=== PATIENT | female | born 1945 | race Caucasian/White ===

== ENCOUNTER 2017-09-27 11:31 | Inpatient (IN) ==
--- NOTE | 2017-09-27 11:36 | Emergency Department Note ---
Disposition Clinical Impression: CAP (community acquired pneumonia), COPD with exacerbation, Hypercapnia, Hypoxia, Sepsis Disposition: Admitted As Inpatient Condition: Fair General Adult HPI - General Chief complaint: ED Shortness of Breath/Dyspnea Stated complaint: Shortness of Breath Time Seen by Provider: 09/27/17 11:34 - Related Data Home Medications Medication Instructions Recorded Confirmed Atorvastatin [Lipitor] 20 mg PO HS 02/15/15 09/27/17 Chlorthalidone 25 mg PO DAILY 02/15/15 09/27/17 Cyclobenzaprine [Flexeril] 10 mg PO DAILY 02/15/15 09/27/17 Losartan [Cozaar] 25 mg PO DAILY 02/15/15 09/27/17 Multivitamin [Multi-Day Vitamins] 1 each PO DAILY 02/15/15 09/27/17 NIFEdipine [Nifedical Xl] 60 mg PO DAILY 02/15/15 09/27/17 Potassium Chloride 20 meq PO TID 02/15/15 09/27/17 Roflumilast [Daliresp] 500 mcg PO DAILY 02/15/15 09/27/17 Ropinirole HCl [Requip] 4 mg PO HS 02/15/15 09/27/17 TraZODone 100 mg PO HS 02/15/15 09/27/17 Aspirin Enteric Coated [Aspirin EC] 81 mg PO DAILY 02/08/16 09/27/17 Fluticasone/Salmeterol [Advair 1 each IH AD PRN 09/19/16 09/27/17 250-50 Diskus] Previous Rx's Medication Instructions Recorded OxyCODONE/APAP 10/325 [Percocet 1 each PO Q6HR PRN #39 tablet 03/13/15 10/325] Vitamin E (Dl,Tocopheryl Acet) 400 unit PO BID #100 cap 08/20/15 [Vitamin E] Calcium Carbonate/Vitamin D3 1 each PO BID #180 tablet 08/24/15 [Calcium 600 + Vit D Tablet] Magnesium Oxide [Mgo] 1 tab PO DAILY #30 tablet 03/21/16 Letrozole [Femara] 2.5 mg PO DAILY #90 tablet 03/19/17 Allergies Allergy/AdvReac Type Severity Reaction Status Date / Time levofloxacin [From Levaquin] AdvReac Itching Verified 09/27/17 12:05 Sulfa (Sulfonamide AdvReac Nausea Verified 09/27/17 12:05 Antibiotics) Past Medical History - Past Medical History Medical history: Reports: other Surgical history: Reports: appendectomy, cataract, hip replacement, hysterectomy Psychiatric history: Reports: no psych history - Social History Smoking Status: Former smoker Smokeless Tobacco Status: No Alcohol use: Reports: none Drug use: Reports: none Course Vital Signs Temperature 98.4 F 09/27/17 11:33 Pulse Rate 100 09/27/17 11:33 Respiratory Rate 24 09/27/17 11:33 Blood Pressure 120/75 09/27/17 11:33 O2 Sat by Pulse Oximetry 92 09/27/17 11:33 Temperature 97.8 F 09/27/17 15:36 Pulse Rate 67 09/27/17 15:36 Respiratory Rate 15 09/27/17 15:36 Blood Pressure 93/53 09/27/17 15:36 O2 Sat by Pulse Oximetry 95 09/27/17 15:36 Oxygen Delivery Oxygen Delivery Nasal Cannula Medical Decision Making - Lab Data Result diagrams: 09/27/17 11:59 09/27/17 11:59 Lab Results 09/27/17 09/27/17 09/27/17 Range/Units 11:59 11:59 11:59 WBC 18.6 H (4.3-11.1) K/mcL RBC 4.35 (3.82-4.97) M/mcL Hgb 13.3 (11.5-15.4) g/dL Hct 40.9 (35.3-44.9) % MCV 94.0 (83.0-100.0) fL MCH 30.6 (28.0-33.3) pg MCHC 32.5 (31.6-35.5) g/dL RDW 14.4 (11.5-14.5) % Plt Count 383 (140-400) K/mcL MPV 8.9 L (9.4-12.4) fL Immature Gran % 0.4 (0-4) % Seg Neutrophils % 92.9 % Lymphocytes % 2.8 % Monocytes % 3.6 % Eosinophils % 0.1 % Basophils % 0.2 % Neutrophils # 17.3 H (1.6-8.9) K/mcL Lymphocytes # 0.5 L (0.6-4.6) K/mcL Monocytes # 0.7 (0.0-1.3) K/mcL Eosinophils # 0.0 (0.0-0.6) K/mcL Basophils # 0.0 (0.0-0.2) K/mcL VBG pH (7.32-7.42) pH Units VBG pCO2 (41-51) mmHg VBG pO2 (25-50) mmHg VBG HCO3 (21-27) mEq/L Sodium 130 L (136-145) mEq/L Potassium 3.7 (3.5-5.1) mEq/L Chloride 94 L (98-107) mEq/L Carbon Dioxide 28 (23-29) mEq/L BUN 16 (8-23) mg/dL Creatinine 1.17 (0.60-1.20) mg/dL Est GFR ( Amer) 55 L (> 60) Est GFR (Non-Af Amer) 46 L (> 60) BUN/Creatinine Ratio 14 (6-26) Glucose 122 H (70-105) mg/dL Calculated Osmolality 272 L (280-300) Lactic Acid (0.5-2.2) mmol/L Calcium 8.7 (8.6-10.3) mg/dL Troponin I < 0.03 (< 0.04) ng/mL Blood Type O POSITIVE Antibody Screen NEGATIVE 09/27/17 09/27/17 Range/Units 12:13 12:41 WBC (4.3-11.1) K/mcL RBC (3.82-4.97) M/mcL Hgb (11.5-15.4) g/dL Hct (35.3-44.9) % MCV (83.0-100.0) fL MCH (28.0-33.3) pg MCHC (31.6-35.5) g/dL RDW (11.5-14.5) % Plt Count (140-400) K/mcL MPV (9.4-12.4) fL Immature Gran % (0-4) % Seg Neutrophils % % Lymphocytes % % Monocytes % % Eosinophils % % Basophils % % Neutrophils # (1.6-8.9) K/mcL Lymphocytes # (0.6-4.6) K/mcL Monocytes # (0.0-1.3) K/mcL Eosinophils # (0.0-0.6) K/mcL Basophils # (0.0-0.2) K/mcL VBG pH 7.32 (7.32-7.42) pH Units VBG pCO2 54 H (41-51) mmHg VBG pO2 40 (25-50) mmHg VBG HCO3 28 H (21-27) mEq/L Sodium (136-145) mEq/L Potassium (3.5-5.1) mEq/L Chloride (98-107) mEq/L Carbon Dioxide (23-29) mEq/L BUN (8-23) mg/dL Creatinine (0.60-1.20) mg/dL Est GFR ( Amer) (> 60) Est GFR (Non-Af Amer) (> 60) BUN/Creatinine Ratio (6-26) Glucose (70-105) mg/dL Calculated Osmolality (280-300) Lactic Acid 3.0 H (0.5-2.2) mmol/L Calcium (8.6-10.3) mg/dL Troponin I (< 0.04) ng/mL Blood Type Antibody Screen Critical Care Time Critical Care Time: Yes Total Critical Care Time: 30 Attestation: The high probability of a clinically significant, sudden or life threatening deterioration of the [] system(s) required my full and direct attention, intervention and personal management. The aggregate critical care time was [] minutes. This time is in addition to time spent performing reported procedures but includes the following: [] Data Review and interpretation [] Patient assessment and monitoring of vital signs [] Documentation [] Medication orders and management Attestation Statement - Attestation Attestation: I examined this patient and my medical decision-making was reviewed with the Resident Physician. I agree with the documented findings, disposition and treatment plan as described except to the extent set forth below. [id number] time provided Patient arrives from home by EMS. She complains of dyspnea. She has a history of non-oxygen dependent COPD. Visibly tachypneic on exam. Prehospital pulse oximetry was reported to be 78% on room air
[2017-09-27] MEDS ORDERED: Albuterol 2.5 MG/3 ML NEBULIZER IH ONE (11:38)
[2017-09-27] MEDS ORDERED: Ipratropium/Albuterol Neb 3 ML ONE (11:40)
--- NOTE | 2017-09-27 11:44 | Emergency Department Note ---
Disposition Clinical Impression: COPD with exacerbation, Hypercapnia, Hypoxia CAP (community acquired pneumonia) Qualifiers: Laterality: right Lung location: lower lobe of lung Qualified Code(s): J18.1 - Lobar pneumonia, unspecified organism Sepsis Qualifiers: Sepsis type: sepsis due to unspecified organism Qualified Code(s): A41.9 - Sepsis, unspecified organism Disposition: Admitted As Inpatient Condition: Fair Forms: ED Satisfaction Letter Time of Disposition: 12:52 SOB HPI - General Chief Complaint: ED Shortness of Breath/Dyspnea Stated Complaint: Shortness of Breath Time Seen by Provider: 09/27/17 11:34 Source: EMS Limitations: no limitations Nursing Notes Reviewed: Yes Vital Signs Reviewed: Yes - History of Present Illness 72-year-old female complains of difficulty in breathing 9 hours ago. Patient states that her symptoms came on suddenly and got progressively worse. Patient states difficult for her to lay flat. Patient denies any chest pain, or chest tightness. She states that she just cannot get a breath in. She has a history of COPD without any prior history of requiring intubation and has not had in-hospital stay in 5 years. Patient states right before she went to bed last night she had chills and heavy tremors, but no fever. Patient's son at bedside states that she was incontinent in the bed last night and those blood in her stool. EMS states that patient had an O2 saturation of 74% and they placed her on 15 L/ m oxygen via nonrebreather and was only able to increase her O2 saturation to proximally 84%. Patient does not use oxygen supplementation at home. - Related Data Home Medications Medication Instructions Recorded Confirmed Atorvastatin [Lipitor] 20 mg PO HS 02/15/15 09/11/17 Chlorthalidone 25 mg PO DAILY 02/15/15 09/11/17 Cyclobenzaprine [Flexeril] 10 mg PO DAILY 02/15/15 09/11/17 Losartan [Cozaar] 25 mg PO DAILY 02/15/15 09/11/17 Multivitamin [Multi-Day Vitamins] 1 each PO DAILY 02/15/15 09/11/17 NIFEdipine [Nifedical Xl] 60 mg PO DAILY 02/15/15 09/11/17 Potassium Chloride 20 meq PO TID 02/15/15 09/11/17 Roflumilast [Daliresp] 500 mcg PO DAILY 02/15/15 09/11/17 Ropinirole HCl [Requip] 4 mg PO HS 02/15/15 09/11/17 TraZODone 2 tab PO HS 02/15/15 09/11/17 Aspirin Enteric Coated [Aspirin EC] 81 mg PO DAILY 02/08/16 09/11/17 Fluticasone/Salmeterol [Advair 1 each IH AD PRN 09/19/16 09/11/17 250-50 Diskus] Previous Rx's Medication Instructions Recorded OxyCODONE/APAP 10325 [Percocet 1 each PO Q6HR PRN #39 tablet 03/13/15 10325] Vitamin E (Dl,Tocopheryl Acet) 400 unit PO BID #100 cap 08/20/15 [Vitamin E] Calcium Carbonate/Vitamin D3 1 each PO BID #180 tablet 08/24/15 [Calcium 600 + Vit D Tablet] Magnesium Oxide [Mgo] 1 tab PO DAILY #30 tablet 03/21/16 Letrozole [Femara] 2.5 mg PO DAILY #90 tablet 03/19/17 Allergies Allergy/AdvReac Type Severity Reaction Status Date / Time levofloxacin [From Levaquin] AdvReac Itching Verified 09/27/17 12:05 Sulfa (Sulfonamide AdvReac Nausea Verified 09/27/17 12:05 Antibiotics) All systems ED: reviewed and negative except as stated. Review of Systems: As Per HPI Constitutional: Reports: chills. Denies: fever ENT ED: Denies: congestion Cardiovascular: Denies: chest pain, palpitations Respiratory: Reports: cough, dyspnea. Denies: wheezes, hemoptysis Gastrointestinal: Denies: abdominal pain, nausea, vomiting, diarrhea Genitourinary: Denies: urgency, dysuria Musculoskeletal: Denies: back pain Endocrine: Reports: fatigue Past Medical History - Past Medical History Attestation: Yes The following information was validated with the patient. Source: patient, nursing notes reviewed Medical history: Reports: other Surgical history: Reports: appendectomy, cataract, hip replacement, hysterectomy Psychiatric history: Reports: no psych history - Social History Smoking Status: Former smoker Smokeless Tobacco Status: No Alcohol use: Reports: none Drug use: Reports: none Physical Exam Vital Signs Temperature 98.4 F 09/27/17 11:33 Pulse Rate 100 09/27/17 11:33 Respiratory Rate 24 09/27/17 11:33 Blood Pressure 120/75 09/27/17 11:33 O2 Sat by Pulse Oximetry 09/27/17 11:33 Temperature 98.4 F 09/27/17 11:33 Pulse Rate 100 09/27/17 11:33 Respiratory Rate 24 09/27/17 11:33 Blood Pressure 120/75 09/27/17 11:33 O2 Sat by Pulse Oximetry 09/27/17 11:33 Oxygen Delivery Oxygen Delivery Non Rebreather Mask CONSTITUTIONAL: Unwell-appearing elderly female who is alert and oriented 3 and in moderate distress, but not in extremis. Patient is nontoxic-appearing and currently afebrile. Slight tachycardic at 100 bpm and tachypnea get 24 breaths per minute. O2 sats 92% on 15 L via nonrebreather. HEAD: Normocephalic; atraumatic EYES: PERRL, no scleral icterus NOSE: The nose is normal in appearance without rhinorrhea NECK: No JVD or distended neck veins RESP: Shallow breaths but equal bilateral rise and fall, no rhonchi or wheezing. Bibasilar rales present CARD: Regular rhythm, without murmurs, rub or gallop ABD: Non-distended; non-tender, soft, without rigidity, rebound or guarding,no pulsatile mass CHEST: No pain with palpation SKIN: Normal for age and race; warm and dry without diaphoresis ; no apparent lesions EXTREMITIES: Pulses are 2 plus and equal times 4 extremities, no peripheral edema or calf muscle pain - General Limitations: no limitations General appearance: alert, in distress Course - Reevaluation(s) Reevaluation #1: Chest x-ray shows source of infection or right lower lobe pneumonia. Sepsis protocol was initiated and antibiotics ordered. Time: 12:30 Vital Signs Temperature 98.4 F 09/27/17 11:33 Pulse Rate 100 09/27/17 11:33 Respiratory Rate 24 09/27/17 11:33 Blood Pressure 120/75 09/27/17 11:33 O2 Sat by Pulse Oximetry 09/27/17 11:33 Temperature 98.4 F 09/27/17 11:33 Pulse Rate 100 09/27/17 11:33 Respiratory Rate 24 09/27/17 11:33 Blood Pressure 120/75 09/27/17 11:33 O2 Sat by Pulse Oximetry 09/27/17 11:33 Oxygen Delivery Oxygen Delivery Non Rebreather Mask Shortness of Breath/Dyspnea - [facility] Narrative Medical decision making narrative: COPD exacerbation and possibly GI bleed per report of black stools on last bowel movement. Fecal occult blood tests was performed at bedside and was negative rectal bleeding. Patient met SIRS criteria and sepsis criteria was met we identified a right lower lobe pneumonia with effusion and patient was started on antibiotics of 1 g Rocephin and 500 mg azithromycin IV. Patient was given albuterol and DuoNeb treatment for COPD exacerbation. Lactic acid was 3.0 and patient was given appropriate IV fluid. Patient did not receive 30 mL per kilogram bolus of IV fluid to prevent fluid overload given the patient's frail state and already diminished respiratory capability. Patient is nonischemic EKG and her troponin was negative. Patient remained stable and well nourished her time in the emergency department , she is able to the ED and drink without issue and was admitted to the hospital. Both the family and patient agreed to admission. Dr. Diaz the hospitalist accepted patient for admission and stable condition. - Lab Data Lab results reviewed: Yes I reviewed the patient's lab results. Lab results narrative: Short CBC 09/27/17 Range/Units 11:59 WBC 18.6 H (4.3-11.1) K/mcL Hgb 13.3 (11.5-15.4) g/dL Hct 40.9 (35.3-44.9) % Plt Count 383 (140-400) K/mcL Neutrophils # 17.3 H (1.6-8.9) K/mcL BMP 09/27/17 Range/Units 11:59 Sodium 130 L (136-145) mEq/L Potassium 3.7 (3.5-5.1) mEq/L Chloride 94 L (98-107) mEq/L Carbon Dioxide 28 (23-29) mEq/L BUN 16 (8-23) mg/dL Creatinine 1.17 (0.60-1.20) mg/dL Glucose 122 H (70-105) mg/dL Calcium 8.7 (8.6-10.3) mg/dL Cardiac Enzymes 09/27/17 Range/Units 11:59 Troponin I < 0.03 (< 0.04) ng/mL - Radiology Data Radiology results reviewed: Yes I reviewed the patient's radiology results. Chest X-Ray 09/27/17 11:39 IMPRESSION: 1. Findings compatible with right-sided pneumonia involving the right upper through lower lung zones and suspected small right pleural effusion. Short-term follow-up chest x-ray, after resolution of symptoms and definitive therapy (4-6 weeks) is suggested to ensure resolution. 2. Findings are superimposed on a background of suspected emphysematous change. Correlation with pulmonary function testing is recommended. D/ / Nick Landon / Nick Landon Interpreting Provider: Nick Landon - EKG Data EKG attestation: Yes I reviewed and interpreted this EKG. EKG results narrative: EKG taken 09/27/2017 at 1136 hrs. shows a sinus tachycardia at a rate of 100 beats minute, no acute ST elevations or depressions and a leads no cures widening or QT prolongation. EKG waveform looks very similar to previous EKG taken 07/10/2014.
[2017-09-27] MEDS: Ipratropium/Albuterol Neb 3 ML IH ONE ×2 (11:47→11:48)
[2017-09-27 12:18] LABS: VBG HCO3 28 mEq/L (21-27); VBG PCO2 54 mmHg (41-51); VBG PH 7.32 pH Units (7.32-7.42); VBG PO2 40 mmHg (25-50)
[2017-09-27 12:28] LABS: Basophils % 0.2 %; Eosinophils % 0.1 %; Hematocrit 40.9 % (35.3-44.9); Hemoglobin 13.3 g/dL (11.5-15.4); Immature Granulocytes % 0.4 % (0-4); Lymphocytes # 0.5 K/mcL (0.6-4.6); Lymphocytes % 2.8 %; Mean Corpuscular HGB Conc 32.5 g/dL (31.6-35.5); Mean Corpuscular Hemoglobin 30.6 pg (28.0-33.3); Mean Platelet Volume 8.9 fL (9.4-12.4); Monocytes # 0.7 K/mcL (0.0-1.3); Monocytes % 3.6 %; Neutrophils # 17.3 K/mcL (1.6-8.9); Platelet Count 383 K/mcL (140-400); Red Blood Count 4.35 M/mcL (3.82-4.97); Red Cell Distribution Width 14.4 % (11.5-14.5); Segmented Neutrophils % 92.9 %
[2017-09-27] MEDS ORDERED: cefTRIAXone 2,000 MG in Water for inj. (sterile) 20 ML IVP ONE (12:29)
[2017-09-27] MEDS ORDERED: Azithromycin 500 MG in D5% in Water 250 ML IVPB ONE (12:29)
[2017-09-27 12:35] LABS: BUN/Creatinine Ratio 14 (6-26); Blood Urea Nitrogen 16 mg/dL (8-23); Calcium 8.7 mg/dL (8.6-10.3); Carbon Dioxide 28 mEq/L (23-29); Chloride 94 mEq/L (98-107); Glucose 122 mg/dL (70-105); Osmolality,Calculated 272 (280-300); Potassium 3.7 mEq/L (3.5-5.1); Sodium 130 mEq/L (136-145); Troponin I < 0.03 ng/mL (< 0.04); eGFR For African Americans 55 (> 60); eGFR For Non-African Americans 46 (> 60)
[2017-09-27] MEDS ORDERED: Naloxone 0.4 MG/ML INJ IVP PRN (14:20)
[2017-09-27] MEDS ORDERED: MethylPREDNISolone 40 MG/ML VIAL IVP ONE (14:24)
[2017-09-27] MEDS ORDERED: Ringers Solution, Lactated 1,000 ML IVC SCH (14:30)
--- NOTE | 2017-09-27 14:31 | Internal Med History&Physical ---
Date of Encounter: 09/27/17 Time of Encounter: 14:25 Internal Medicine - H&P: HPI Chief complaint: SOB Admitted From: Home Plans for Post Hospital Care: Home History of present illness: Ms. Sifuentes is a 72 year old female who has a history of hypertension hyperlipidemia COPD presenting emergency room for shortness of breath 1 day. Patient has history of COPD quit smoking 6 years ago, not on home O2, uses nebulizers needed. she developed productive cough and SOB today, associated with fever and chills. She coughed up fresh blood 1 this morning. Denies chest pain. She has no nausea vomiting diarrhea or constipation. In the ER she is afebrile, heart rate 100, respiratory to 24, WBC 18.6 VBG showed a pH 7.32 CO2 54 sodium 130, GFR 46% troponin is negative chest x-ray showed a right- sided pneumonia. Patient is going to to be admitted for sepsis from pneumonia acute hypoxic respiratory failure from pneumonia and a COPD exacerbation hyponatremia Past Med Surg Social Fam HX - Past Medical History Medical history: other Psychiatric history: no psych history - Past Surgical History Surgical History: appendectomy, cataract, hip replacement, hysterectomy - Social History Smoking Status: Former smoker Smokeless Tobacco Status: No Alcohol use: none Drug use: none Internal Medicine - H&P: Meds Atorvastatin [Lipitor] 20 mg PO HS 02/15/15 [History] Chlorthalidone 25 mg PO DAILY 02/15/15 [History] Cyclobenzaprine [Flexeril] 10 mg PO DAILY 02/15/15 [History] Losartan [Cozaar] 25 mg PO DAILY 02/15/15 [History] Multivitamin [Multi-Day Vitamins] 1 each PO DAILY 02/15/15 [History] NIFEdipine [Nifedical Xl] 60 mg PO DAILY 02/15/15 [History] Potassium Chloride 20 meq PO TID 02/15/15 [History] Roflumilast [Daliresp] 500 mcg PO DAILY 02/15/15 [History] Ropinirole HCl [Requip] 4 mg PO HS 02/15/15 [History] TraZODone 100 mg PO HS 02/15/15 [History] OxyCODONE/APAP 10/325 [Percocet 10/325] 1 each PO Q6HR PRN #39 tablet 03/13/15 [ Rx] Vitamin E (Dl,Tocopheryl Acet) [Vitamin E] 400 unit PO BID #100 cap 08/20/15 [Rx ] Calcium Carbonate/Vitamin D3 [Calcium 600 + Vit D Tablet] 1 each PO BID #180 tablet 08/24/15 [Rx] Aspirin Enteric Coated [Aspirin EC] 81 mg PO DAILY 02/08/16 [History] Magnesium Oxide [Mgo] 1 tab PO DAILY #30 tablet 03/21/16 [Rx] Fluticasone/Salmeterol [Advair 250-50 Diskus] 1 each IH AD PRN 09/19/16 [History ] Letrozole [Femara] 2.5 mg PO DAILY #90 tablet 03/19/17 [Rx] 3 Allergy/AdvReac Type Severity Reaction Status Date / Time levofloxacin [From Levaquin] AdvReac Itching Verified 09/27/17 12:05 Sulfa (Sulfonamide AdvReac Nausea Verified 09/27/17 12:05 Antibiotics) All Systems PM: A 10-system review of systems was performed and is negative for pertinent findings except as documented above in the HPI. - Constitutional Vitals: Temp Pulse Resp BP Pulse Ox 98.4 F 96 24 139/91 85 09/27/17 11:33 09/27/17 12:56 09/27/17 12:56 09/27/17 12:56 09/27/17 12:56 General appearance: Present: mild distress, A&O X 3, morbidly obese Exam: CONSTITUTIONAL: Patient appears as an age appropriate female well developed, in no acute distress. EYES Clear sclerae, bilateral pupils are equal, reactive to light and accommodation. Extraocular movements are intact RESPIRATORY: No accessory muscle use, bilateral right side crackles/rales. CARDIOVASCULAR: Regular heart rate, normal S1 and S2, no murmurs GASTROINTESTINAL: bowel sounds present, soft, no tenderness. No hepatosplenomegaly. No bilateral CVA tenderness MUSCULOSKELETAL: Joints in normal range of motion, no clubbing, no edema, no cyanosis. Bilateral peripheral pulses 2+ LYMPHATIC no lymphadenopathy in neck, groin and axilla bilaterally, no thyromegaly. NEUROLOGIC: CN II to XII are grossly intact, no focal neurological deficit. Deep tendon reflexes 2+ bilaterally. Normal light touch sensation to upper and lower extremity PSYCHIATRIC: Oriented x3, with good insight, mood is euthymic. No hallucinations or delusions. SKIN: Skin warm and dry, no rashes, no open wound. Internal Med - H&P Results - Labs CBC & Chem 7: 09/27/17 11:59 09/27/17 11:59 Labs: Short CBC 09/27/17 Range/Units 11:59 WBC 18.6 H (4.3-11.1) K/mcL Hgb 13.3 (11.5-15.4) g/dL Hct 40.9 (35.3-44.9) % Plt Count 383 (140-400) K/mcL Neutrophils # 17.3 H (1.6-8.9) K/mcL BMP 09/27/17 11:59 Sodium 130 L Potassium 3.7 Chloride 94 L Carbon Dioxide 28 BUN 16 Creatinine 1.17 Glucose 122 H Calcium 8.7 Cardiac Enzymes 09/27/17 Range/Units 11:59 Troponin I < 0.03 (< 0.04) ng/mL - ABG Interpretation ABG results: 09/27/17 12:13 VBG pH 7.32 VBG pCO2 54 H VBG pO2 40 VBG HCO3 28 H - Impressions ITS Impressions Chest X-Ray 09/27/17 11:39 IMPRESSION: 1. Findings compatible with right-sided pneumonia involving the right upper through lower lung zones and suspected small right pleural effusion. Short-term follow-up chest x-ray, after resolution of symptoms and definitive therapy (4-6 weeks) is suggested to ensure resolution. 2. Findings are superimposed on a background of suspected emphysematous change. Correlation with pulmonary function testing is recommended. D/ / Nick Landon / Nick Landon Interpreting Provider: Nick Landon - Assessment and plan (1) Sepsis Current Visit: Yes Status: Acute Assessment and plan: Sepsis from pneumonia, heart rate 100 and respiratory to 24 WBC 19,000 Qualifiers: Sepsis type: sepsis due to unspecified organism Qualified Code(s): A41.9 - Sepsis, unspecified organism (2) CAP (community acquired pneumonia) Current Visit: Yes Status: Acute Assessment and plan: Community acquired pneumonia continue azithromycin and ceftriaxone Qualifiers: Laterality: right Lung location: lower lobe of lung Qualified Code(s): J18.1 - Lobar pneumonia, unspecified organism (3) COPD with exacerbation Current Visit: Yes Status: Acute Assessment and plan: COPD acute exacerbation on Solu-Medrol 40 mg every 8 (4) Hypoxia Current Visit: Yes Status: Acute Assessment and plan: Acute hypoxic respiratory failure from COPD exacerbation and pneumonia, she was not on home O2, currently requiring 15 L nasal cannula respiratory rate at to 24. May need a BiPAP will follow-up ABG (5) Hypertension Current Visit: Yes Status: Chronic Qualifiers: Hypertension type: essential hypertension Qualified Code(s): I10 - Essential (primary) hypertension - Time Spent With Patient Total time spent is greater than 50% in coordination of care (as documented) at patient's floor/unit and/or counseling patient: Greater than 35 minutes
[2017-09-27] MEDS ORDERED: methylPREDNISolone 125 MG/2 ML VIAL IVP ONE (15:29)
[2017-09-27] MEDS: 0.9 % Sodium Chloride 1,000 ML IVC ONE ×2 (15:44→17:03)
[2017-09-27] MEDS: *HR* Heparin 5,000 UNIT/ML VIAL SQ SCH (16:01)
[2017-09-27] MEDS ORDERED: 0.9 % Sodium Chloride 1,000 ML ONE (16:58)
[2017-09-27] MEDS: *HR* OxyCODONE/APAP 10/325 TABLET PO PRN (17:07)
[2017-09-27] MEDS ORDERED: Letrozole 2.5 MG TABLET PO ONE (19:00)
[2017-09-27] MEDS ORDERED: 0.9 % Sodium Chloride 1,000 ML IVC ONE (20:22)
[2017-09-27] MEDS: Budesonide/Formoterol 80/4.5 MDI IH SCH (20:24)
[2017-09-27] MEDS ORDERED: traZODone 50 MG TABLET PO SCH (21:00)
[2017-09-27] MEDS ORDERED: 0.9 % Sodium Chloride 1,000 ML IVC SCH (22:00)
[2017-09-28] MEDS: *HR* OxyCODONE/APAP 10/325 TABLET PO PRN ×3 (00:46→19:31)
[2017-09-28] MEDS: *HR* Heparin 5,000 UNIT/ML VIAL SQ SCH ×4 (00:47→23:07)
[2017-09-28] MEDS: rOPINIRole 1 MG TABLET PO SCH ×2 (00:47→23:09)
[2017-09-28 03:42] LABS: Hematocrit 33.7 % (35.3-44.9); Hemoglobin 11.2 g/dL (11.5-15.4); Mean Corpuscular HGB Conc 33.2 g/dL (31.6-35.5); Mean Corpuscular Hemoglobin 31.2 pg (28.0-33.3); Mean Corpuscular Volume 93.9 fL (83.0-100.0); Platelet Count 317 K/mcL (140-400); Red Blood Count 3.59 M/mcL (3.82-4.97); Red Cell Distribution Width 14.5 % (11.5-14.5)
[2017-09-28 03:51] LABS: BUN/Creatinine Ratio 19 (6-26); Blood Urea Nitrogen 18 mg/dL (8-23); Carbon Dioxide 25 mEq/L (23-29); Chloride 99 mEq/L (98-107); Glucose 154 mg/dL (70-105); Osmolality,Calculated 273 (280-300); Potassium 3.9 mEq/L (3.5-5.1); Sodium 129 mEq/L (136-145); eGFR For African Americans > 60 (> 60); eGFR For Non-African Americans 57 (> 60)
[2017-09-28] MEDS ORDERED: Albuterol 2.5 MG/3 ML NEBULIZER IH PRN (07:49)
[2017-09-28] MEDS: Ipratropium/Albuterol Neb 3 ML IH SCH ×5 (08:18→23:26)
[2017-09-28] MEDS: Budesonide/Formoterol 80/4.5 MDI IH SCH ×2 (08:19→19:36)
[2017-09-28] MEDS: Letrozole 2.5 MG TABLET PO SCH (09:17)
[2017-09-28] MEDS: NIFEdipine XL (24 HR) 60 MG TAB.ER.24 PO SCH (09:19)
[2017-09-28] MEDS: Aspirin Enteric Coated 81 MG Tablet PO SCH (09:19)
[2017-09-28] MEDS: Magnesium Oxide 400 MG TABLET PO SCH (09:19)
--- NOTE | 2017-09-28 10:09 | Internal Med Progress Note ---
<Dany Estrada - Last Filed: 09/28/17 10:26> Date of Encounter: 09/28/17 Time of Encounter: 10:02 - Assessment and plan (1) Sepsis Current Visit: Yes Status: Acute Assessment and plan: Due to right lung pneumonia & COPD exacerbation. Hypoxic & Hypercapneic respiratory failure - associated hypoxia, hypercapnia, and red "bloody" sputum - Associated leukocytosis initially 18.6K, today 26.3K; neutrophil count 17.3 yesterday. 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; if effusion becomes more evident, may need to consider this a possible etiology Plan - continue O2 titrated as needed to maintain saturations above 88%; 500 control and nasal O2 - respiratory infection panel, pending - sputum culture, pending - FD compensates, check ABG and BiPAP accordingly - consider possible follow-up CTA patient does not improve or in fact worsens - monitor sodium level QAM; pending urine osmolality and urine sodium - placing patient on PO steroids - continue azithromycin and Rocephin - scheduled and PRN neb treatments - hold chlorthalidone for possible edema/effusion; BPs are currently within normal limits Cardiac diet DVT prophylaxis with subQ heparin Qualifiers: Sepsis type: sepsis due to unspecified organism Qualified Code(s): A41.9 - Sepsis, unspecified organism (2) CAP (community acquired pneumonia) Current Visit: Yes Status: Acute Assessment and plan: As above Qualifiers: Laterality: right Lung location: lower lobe of lung Qualified Code(s): J18.1 - Lobar pneumonia, unspecified organism (3) COPD with exacerbation Current Visit: Yes Status: Acute Assessment and plan: As above (4) Hypertension Current Visit: Yes Status: Chronic Assessment and plan: As above Qualifiers: Hypertension type: essential hypertension Qualified Code(s): I10 - Essential (primary) hypertension (5) DVT prophylaxis Current Visit: Yes Status: Acute Assessment and plan: As above (6) Hyponatremia Current Visit: Yes Status: Acute Assessment and plan: As above - Time Spent With Patient Total time spent is greater than 50% in coordination of care (as documented) at patient's floor/unit and/or counseling patient: - Subjective Interval history: Patient continues to be subjectively short of breath; is requiring 5 or more liters of oxygen by nasal cannula to sustain a saturation of 90%. Patient states has to lay on her right side in order to breathe appropriately and also states that she has much harder time breathing which she lays on her left side; of note, chest x-ray was significant for consolidation in the right lung. Revisited HPI with patient. Patient states for last 2 to 3 days, has had increasing shortness of breath as well as productive cough. States is also had obvious blood in her sputum which is currently improving according to patient. - Constitutional Vitals: Temp Pulse Resp BP Pulse Ox 98 F 99 22 123/65 88 09/28/17 06:41 09/28/17 06:41 09/28/17 08:22 09/28/17 06:41 09/28/17 08:22 CONSTITUTIONAL: Alert and oriented X3, on humidified 6 L of oxygen by nasal cannula saturating 89%. Productive cough apparent producing light brown-tinged sputum. HEAD: Normocephalic; atraumatic. EYES: PER, no scleral icterus, no drainage, no conjunctival injection NOSE: nasal cannula in place, no rhinorrhea Oropharynx: pink/moist, no tonsillar edema/erythema/exudates RESP: NRD without use of accessory musculature, lung sounds significantly diminished across all right lung garibay; no wheezes heard nor basilar rales/ rhonchi. CARD: Regular rhythm, without murmurs, rubs, or gallop ABD: grossly normal, soft, non-tender, no guarding/distention/rigidity SKIN: normal appearance, no pallor/diaphoresis,mottling,jaundice,cyanosis EXT: Rad pulses 2+ and symmetrical; no lateralizing edema; no other lesions seen PSYCH: appropriate mood/affect Internal Medicine: Result - Labs CBC & Chem 7: 09/28/17 03:17 09/28/17 03:17 Labs: Short CBC 09/28/17 Range/Units 03:17 WBC 26.3 H (4.3-11.1) K/mcL Hgb 11.2 L D (11.5-15.4) g/dL Hct 33.7 L (35.3-44.9) % Plt Count 317 (140-400) K/mcL BMP 09/28/17 03:17 Sodium 129 L Potassium 3.9 Chloride 99 Carbon Dioxide 25 BUN 18 Creatinine 0.97 Glucose 154 H Calcium 8.0 L Consult Discharge Plan - Plan Referrals: Vladimir Cho MD [Primary Care Provider] - <Pete Walters H - Last Filed: 09/28/17 11:00> Date of Encounter: 09/28/17 - Assessment and plan (1) CAP (community acquired pneumonia) Current Visit: Yes Status: Acute Qualifiers: Laterality: right Lung location: lower lobe of lung Qualified Code(s): J18.1 - Lobar pneumonia, unspecified organism (2) COPD with exacerbation Current Visit: Yes Status: Acute (3) Sepsis Current Visit: Yes Status: Acute Qualifiers: Sepsis type: sepsis due to unspecified organism Qualified Code(s): A41.9 - Sepsis, unspecified organism (4) Hypertension Current Visit: Yes Status: Chronic Qualifiers: Hypertension type: essential hypertension Qualified Code(s): I10 - Essential (primary) hypertension (5) DVT prophylaxis Current Visit: Yes Status: Acute (6) Hyponatremia Current Visit: Yes Status: Acute - Time Spent With Patient Total time spent is greater than 50% in coordination of care (as documented) at patient's floor/unit and/or counseling patient: - Constitutional Vitals: Temp Pulse Resp BP Pulse Ox 98 F 99 22 123/65 88 09/28/17 06:41 09/28/17 06:41 09/28/17 08:22 09/28/17 06:41 09/28/17 08:22 Internal Medicine: Result - Labs CBC & Chem 7: 09/28/17 03:17 09/28/17 03:17 Labs: Short CBC 09/28/17 Range/Units 03:17 WBC 26.3 H (4.3-11.1) K/mcL Hgb 11.2 L D (11.5-15.4) g/dL Hct 33.7 L (35.3-44.9) % Plt Count 317 (140-400) K/mcL BMP 09/28/17 03:17 Sodium 129 L Potassium 3.9 Chloride 99 Carbon Dioxide 25 BUN 18 Creatinine 0.97 Glucose 154 H Calcium 8.0 L - Attending Attestation Acute hypoxic respiratory failure secondary to acute COPD exacerbation due to sepsis from community-acquired pneumonia/unknown agent Continue Rocephin and azithromycin day #2 Continue prednisone next Chest x-ray shows large right middle and lower lobe consolidations and possible pleural effusion Minimize the use of fluids We will order an ABG in a possible CT scan of the chest and the patient decompensates I examined this patient and my medical decision-making was reviewed with the Resident Physician. I agree with the documented findings, disposition and treatment plan as described except to the extent set forth below.
[2017-09-28] MEDS: predniSONE 20 MG TABLET PO SCH (12:23)
[2017-09-28] MEDS: cefTRIAXone 1,000 MG in Water for inj. (sterile) 20 ML 10 ML IVP SCH (12:24)
[2017-09-28] MEDS: 0.9 % Sodium Chloride 1,000 ML IVC SCH (12:24)
[2017-09-28] MEDS: Azithromycin 500 MG in D5% in Water 250 ML IVPB SCH (12:29)
[2017-09-28] MEDS: (Roflumilast [Daliresp] 500 MCG) PO SCH (12:57)
--- NOTE | 2017-09-28 16:36 | Electrocardiograph Report ---
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
[2017-09-28 17:49] LABS: Adenovirus Not Detected (Not Detect); Bordetella Pertussis Not Detected (Not Detect); Chlamydophila pneumoniae Not Detected (Not Detect); Coronavirus 229E Not Detected (Not Detect); Coronavirus HKU1 Not Detected (Not Detect); Coronavirus NL63 Not Detected (Not Detect); Coronavirus OC43 Not Detected (Not Detect); Human Metapneumovirus Not Detected (Not Detect); Human Rhinovirus/Enterovirus Not Detected (Not Detect); Influenza A Subtype 2009 H1 Not Detected (Not Detect); Influenza A Untypeable Not Detected (Not Detect); Influenza B Not Detected (Not Detect); Mycoplasma pneumoniae Not Detected (Not Detect); Parainfluenza Virus 1 Not Detected (Not Detect); Parainfluenza Virus 2 Not Detected (Not Detect); Parainfluenza Virus 3 Not Detected (Not Detect); Parainfluenza Virus 4 Not Detected (Not Detect); Respiratory Syncytial Virus Not Detected (Not Detect)
[2017-09-28] MEDS: Gabapentin 300 MG CAPSULE PO SCH (23:09)
[2017-09-28] MEDS: traZODone 50 MG TABLET PO SCH (23:10)
[2017-09-29] MEDS: Ipratropium/Albuterol Neb 3 ML IH SCH ×3 (03:38→11:27)
[2017-09-29 04:35] LABS: Hematocrit 31.6 % (35.3-44.9); Hemoglobin 10.6 g/dL (11.5-15.4); Mean Corpuscular HGB Conc 33.5 g/dL (31.6-35.5); Mean Corpuscular Hemoglobin 31.4 pg (28.0-33.3); Mean Corpuscular Volume 93.5 fL (83.0-100.0); Mean Platelet Volume 9.2 fL (9.4-12.4); Platelet Count 321 K/mcL (140-400); Red Blood Count 3.38 M/mcL (3.82-4.97); Red Cell Distribution Width 14.7 % (11.5-14.5)
[2017-09-29 04:54] LABS: BUN/Creatinine Ratio 23 (6-26); Blood Urea Nitrogen 16 mg/dL (8-23); Calcium 8.4 mg/dL (8.6-10.3); Carbon Dioxide 26 mEq/L (23-29); Chloride 97 mEq/L (98-107); Glucose 108 mg/dL (70-105); Osmolality,Calculated 272 (280-300); Potassium 3.3 mEq/L (3.5-5.1); Sodium 130 mEq/L (136-145); eGFR For African Americans > 60 (> 60); eGFR For Non-African Americans > 60 (> 60)
[2017-09-29 05:17] LABS: Lymphocytes # 1.5 K/mcL (0.6-4.6); Monocytes # 1.5 K/mcL (0.0-1.3); Neutrophils # 21.7 K/mcL (1.6-8.9); Platelet Estimate Normal (Normal); Reactive Lymphocytes Present (Not Present)
[2017-09-29] MEDS: *HR* OxyCODONE/APAP 10/325 TABLET PO PRN ×3 (06:31→22:33)
[2017-09-29] MEDS: Budesonide/Formoterol 80/4.5 MDI IH SCH ×2 (07:26→19:59)
--- NOTE | 2017-09-29 07:50 | Internal Med Progress Note ---
<Dany Estrada - Last Filed: 09/29/17 13:39> Date of Encounter: 09/29/17 Time of Encounter: 07:50 - Assessment and plan (1) Sepsis Current Visit: Yes Status: Acute Assessment and plan: Due to right lung pneumonia & COPD exacerbation. Hypoxic & Hypercapneic respiratory failure - associated hypoxia, hypercapnia, and red "bloody" sputum - Associated leukocytosis; 24.6K today. 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; if effusion becomes more evident, may need to consider this a possible etiology - patient did become tachycardic today; see plan below Plan - continue O2 titrated as needed to maintain saturations above 88%; 500 control and nasal O2 - viral panel negative - sputum culture, prelim positive for bacteria with final differentiation & sensitivity pending - if decompensates, check ABG and BiPAP accordingly - monitor sodium level QAM; stable - potassium was mildly low this morning at 3.3; supplemented with 40 mEq PO KCl - placing patient on day 2 of PO steroids - continue azithromycin and Rocephin, day 2 for each - scheduled and PRN neb treatments - hold chlorthalidone for possible edema/effusion; BPs are currently within normal limits - patient is currently tachycardic and was given single push dose IV Cardizem 10 mg which momentarily resolve the tachycardia - did CTA to assess for possible PE which was negative - started patient on PO Cardizem 30 mg Q6 hours and will continue to monitor for improvement - holding Cardizem infusion due to patient's normal blood pressure with concern of possibly inducing hypotension CTA: - No evidence of pulmonary embolism. - Infiltrate in the deep tendon right lung. This may be due to an infection or aspiration. - Small pleural effusions, right greater than left. Cardiac diet DVT prophylaxis with subQ heparin Qualifiers: Sepsis type: sepsis due to unspecified organism Qualified Code(s): A41.9 - Sepsis, unspecified organism (2) CAP (community acquired pneumonia) Current Visit: Yes Status: Acute Assessment and plan: As above Qualifiers: Laterality: right Lung location: lower lobe of lung Qualified Code(s): J18.1 - Lobar pneumonia, unspecified organism (3) COPD with exacerbation Current Visit: Yes Status: Acute Assessment and plan: As above (4) Hypertension Current Visit: Yes Status: Chronic Assessment and plan: Normotensive Qualifiers: Hypertension type: essential hypertension Qualified Code(s): I10 - Essential (primary) hypertension (5) DVT prophylaxis Current Visit: Yes Status: Acute Assessment and plan: As above (6) Hyponatremia Current Visit: Yes Status: Acute Assessment and plan: Stable and following - Time Spent With Patient Total time spent is greater than 50% in coordination of care (as documented) at patient's floor/unit and/or counseling patient: - Subjective Interval history: Patient sites mild improvement respiratory status saying she is a little in her left side without the saturating as before. Patient continues to be hypoxic requiring 5 or more liters of oxygen by nasal cannula to sustain a saturation of 90%. - Constitutional Vitals: Temp Pulse Resp BP Pulse Ox 98.2 F 110 16 120/63 90 09/29/17 06:54 09/29/17 06:54 09/29/17 07:26 09/29/17 06:54 09/29/17 07:26 Stable exam from 09/28/2017 CONSTITUTIONAL: Alert and oriented X3, on humidified 6 L of oxygen by nasal cannula saturating 89%. Productive cough apparent producing light brown-tinged sputum. HEAD: Normocephalic; atraumatic. EYES: PER, no scleral icterus, no drainage, no conjunctival injection NOSE: nasal cannula in place, no rhinorrhea Oropharynx: pink/moist, no tonsillar edema/erythema/exudates RESP: NRD without use of accessory musculature, lung sounds significantly diminished across all right lung garibay; no wheezes heard nor basilar rales/ rhonchi. CARD: Regular rhythm, without murmurs, rubs, or gallop ABD: grossly normal, soft, non-tender, no guarding/distention/rigidity SKIN: normal appearance, no pallor/diaphoresis,mottling,jaundice,cyanosis EXT: Rad pulses 2+ and symmetrical; no lateralizing edema; no other lesions seen PSYCH: appropriate mood/affect Internal Medicine: Result - Labs CBC & Chem 7: 09/29/17 04:01 09/29/17 04:01 Labs: Short CBC 09/29/17 Range/Units 04:01 WBC 24.6 H (4.3-11.1) K/mcL Hgb 10.6 L (11.5-15.4) g/dL Hct 31.6 L (35.3-44.9) % Plt Count 321 (140-400) K/mcL Neutrophils # 21.7 H (1.6-8.9) K/mcL BMP 09/29/17 04:01 Sodium 130 L Potassium 3.3 L Chloride 97 L Carbon Dioxide 26 BUN 16 Creatinine 0.71 Glucose 108 H Calcium 8.4 L Consult Discharge Plan - Plan Referrals: Vladimir Cho MD [Primary Care Provider] - 10/06/17 9:45 am <Ming Ott - Last Filed: 09/29/17 15:37> Date of Encounter: 09/29/17 - Assessment and plan (1) CAP (community acquired pneumonia) Current Visit: Yes Status: Acute Qualifiers: Laterality: right Lung location: lower lobe of lung Qualified Code(s): J18.1 - Lobar pneumonia, unspecified organism (2) COPD with exacerbation Current Visit: Yes Status: Acute (3) Sepsis Current Visit: Yes Status: Acute Qualifiers: Sepsis type: sepsis due to unspecified organism Qualified Code(s): A41.9 - Sepsis, unspecified organism (4) Hypertension Current Visit: Yes Status: Chronic Qualifiers: Hypertension type: essential hypertension Qualified Code(s): I10 - Essential (primary) hypertension (5) DVT prophylaxis Current Visit: Yes Status: Acute (6) Hyponatremia Current Visit: Yes Status: Acute (7) Atrial fibrillation with RVR Current Visit: Yes Status: Acute - Time Spent With Patient Total time spent is greater than 50% in coordination of care (as documented) at patient's floor/unit and/or counseling patient: - Constitutional Vitals: Temp Pulse Resp BP Pulse Ox 98.3 F 150 14 121/85 93 09/29/17 12:15 09/29/17 12:15 09/29/17 12:15 09/29/17 12:15 09/29/17 12:15 Internal Medicine: Result - Labs CBC & Chem 7: 09/29/17 04:01 09/29/17 04:01 Labs: Short CBC 09/29/17 Range/Units 04:01 WBC 24.6 H (4.3-11.1) K/mcL Hgb 10.6 L (11.5-15.4) g/dL Hct 31.6 L (35.3-44.9) % Plt Count 321 (140-400) K/mcL Neutrophils # 21.7 H (1.6-8.9) K/mcL BMP 09/29/17 04:01 Sodium 130 L Potassium 3.3 L Chloride 97 L Carbon Dioxide 26 BUN 16 Creatinine 0.71 Glucose 108 H Calcium 8.4 L - Impressions Impressions Echocardiogram 09/28/17 10:15 Impressions: LVEF 65%. Mild left ventricular diastolic dysfunction. Normal right ventricular structure and function. Mild tricuspid regurgitation. Mild pulmonary hypertension. Left Ventricular Wall Motion: Rest Echo Findings All wall segments showed normal motion. Findings: Study Quality * Technically challenging due to body habitus. ECG Findings * Normal sinus rhythm. Left Ventricle * LVEF 65%. * Normal LV chamber size, wall thickness and function. * Mild left ventricular diastolic dysfunction. Right Ventricle * Normal right ventricular structure and function. Left Atrium * Mildly dilated left atrium. Right Atrium * Normal right atrial size. Aortic Valve * Trileaflet aortic valve. * No aortic stenosis. * No aortic regurgitation. Mitral Valve * Mitral valve not well visualized. * Normal mitral valve structure. * No mitral stenosis. * Trace mitral regurgitation. Tricuspid Valve * Tricuspid valve not well visualized. * Mild tricuspid regurgitation. * Estimated RA pressure is 8 mmHg. * Estimated RVSP is 41 mmHg. * Mild pulmonary hypertension. Pulmonic Valve * Pulmonic valve is not well visualized. * No pulmonic stenosis. * No pulmonic regurgitation. Pulmonary Artery * Pulmonary artery not well visualized. Aorta * Normally sized aortic root. Pericardium * There is no pericardial effusion present. Interatrial Septum * No evidence of PFO by color Doppler. IVC * The IVC is not dilated. * < 50% respiratory change. Chest CTA 09/29/17 10:45 IMPRESSION: No evidence of pulmonary embolism. Infiltrate in the deep tendon right lung. This may be due to an infection or aspiration. Small pleural effusions, right greater than left. Emphysema. Calcified atheromatous plaque and coronary calcifications. D/ / Alexis Quezada / Alexis Quezada Interpreting Provider: Alexis Quezada - Attending Attestation I examined this patient on 09/29/17, and my medical decision-making was reviewed with the Resident Physician. I agree with the documented findings, disposition and treatment plan as described except to the extent set forth below. 72 F with Afib with RVR, Acute hypoxic resp failure, Sepsis secondary to PNA, COPDE. She is still hypoxic despite 72 hrs of antibiotics, also in RVR with HR 150-170, asymptomatic. Physical exam remarkable for diffuse expiratory crackles and wheezing. Labs and Imaging reviewed and noted. ECHO noted-mild LVDD. CTA ruled out pulmonary embolism. Shows multilobar pneumonia which right-sided pleural effusion. Right-sided thoracentesis done at the bedside. Send fluid for culture and workup. Continue current antibiotics, start on anticoagulation for Afib, and wean O2 as tolerated. Started on Cardizem drip due to A. fib with RVR. hold Nifedipine. Replace potassium, magnesium is within normal limit. Rest of details as in the resident physicians documentation.
[2017-09-29] MEDS: predniSONE 20 MG TABLET PO SCH (08:28)
[2017-09-29] MEDS: Aspirin Enteric Coated 81 MG Tablet PO SCH (08:28)
[2017-09-29] MEDS: NIFEdipine XL (24 HR) 60 MG TAB.ER.24 PO SCH (08:29)
[2017-09-29] MEDS: Magnesium Oxide 400 MG TABLET PO SCH (08:29)
[2017-09-29] MEDS: Cholecalciferol (D-3) 1,000 UNIT TABLET PO SCH (08:29)
[2017-09-29] MEDS: *HR* Heparin 5,000 UNIT/ML VIAL SQ SCH ×3 (08:30→23:44)
[2017-09-29] MEDS: (Roflumilast [Daliresp] 500 MCG) PO SCH (08:30)
[2017-09-29] MEDS ORDERED: *HR* Metoprolol 5 MG/5 ML VIAL IVP ONE (09:46)
[2017-09-29] MEDS ORDERED: 0.9 % Sodium Chloride 500 ML IVC ONE (09:54)
[2017-09-29] MEDS ORDERED: Isovue-370 500 ML INFUS..BTL IV ONE (10:45)
[2017-09-29 11:02] LABS: Magnesium 2.2 mg/dL (1.6-2.6)
[2017-09-29] MEDS: Letrozole 2.5 MG TABLET PO SCH (12:21)
[2017-09-29] MEDS: 0.9 % Sodium Chloride 1,000 ML IVC SCH (12:22)
[2017-09-29] MEDS: cefTRIAXone 1,000 MG in Water for inj. (sterile) 20 ML 10 ML IVP SCH (12:24)
[2017-09-29] MEDS: Azithromycin 500 MG in D5% in Water 250 ML IVPB SCH (12:28)
[2017-09-29] MEDS ORDERED: 0.9 % Sodium Chloride 500 ML ONE (15:26)
--- NOTE | 2017-09-29 15:46 | Procedure Note ---
Date of procedure: 09/29/17 Pre-op diagnosis: Right pleural effusion Post-op diagnosis: same Procedure: A time-out was completed verifying correct patient, procedure, site, positioning , and special equipment if applicable. The patients right side was prepped and draped in a sterile manner after the appropriate infiltration level was confirmed by ultrasound. 1% lidocaine was used anesthetize the surrounding skin. A finder needle was then used to locate fluid and clear yellow fluid was obtained. A 10-blade scalpel used to make the incision. The thoracentesis catheter was then threaded without difficulty. The patient had 50mL of clear yellow fluid removed. Attending Dr. Ott was present for the entire procedure. A post-procedure chest x-ray was ordered and the fluid will be sent for several studies. Estimated Blood Loss: 0cc The patient tolerated the procedure well and there were no complications ITS Impressions Chest X-Ray 09/29/17 15:42 IMPRESSION: 1. Stable asymmetric consolidative changes more prominent on the right. 2. No pneumothorax. Anesthesia: local Surgeon: Yvon Mcintosh Was there an training and development assistant present: Yes Typing Teacher: Ming Ott Estimated blood loss (cc): 0 Specimen: Yellow pleural fluid Pathology: other Condition: stable Disposition: no change
[2017-09-29] MEDS: Levalbuterol Neb 0.63 MG/3 ML IH SCH ×3 (16:20→23:14)
[2017-09-29] MEDS: Ipratropium Neb 0.5 MG NEBULIZER IH SCH ×3 (16:20→23:14)
[2017-09-29 17:12] LABS: LDH,Pleural Fluid 121 Units/L (No Ref Range); Total Protein,Pleural Fluid < 3.0 g/dL (No Ref Range)
[2017-09-29 17:20] LABS: Lactate Dehydrogenase 182 Units/L (140-271); Total Protein 6.2 g/dL (6.4-8.9)
[2017-09-29 17:28] LABS: Appearance of Pleural Fl Clear (Clear)
[2017-09-29 17:36] LABS: RBC,Pleural Fluid < 0.002 M/mcL
[2017-09-29] MEDS: Gabapentin 300 MG CAPSULE PO SCH (22:33)
[2017-09-29] MEDS: traZODone 50 MG TABLET PO SCH (22:34)
[2017-09-29] MEDS: rOPINIRole 1 MG TABLET PO SCH (22:35)
[2017-09-30] MEDS: Ipratropium Neb 0.5 MG NEBULIZER IH SCH ×6 (03:41→23:40)
[2017-09-30] MEDS: Levalbuterol Neb 0.63 MG/3 ML IH SCH ×6 (03:41→23:40)
[2017-09-30 03:58] LABS: Basophils % 0.2 %; Eosinophils % 0.1 %; Hematocrit 31.7 % (35.3-44.9); Hemoglobin 10.6 g/dL (11.5-15.4); Immature Granulocytes % 1.1 % (0-4); Lymphocytes # 1.9 K/mcL (0.6-4.6); Lymphocytes % 9.9 %; Mean Corpuscular HGB Conc 33.4 g/dL (31.6-35.5); Mean Corpuscular Volume 92.7 fL (83.0-100.0); Mean Platelet Volume 9.7 fL (9.4-12.4); Monocytes # 0.8 K/mcL (0.0-1.3); Neutrophils # 16.3 K/mcL (1.6-8.9); Nucleated Red Blood Cells 0.1 /100 WBC (0); Platelet Count 293 K/mcL (140-400); Red Blood Count 3.42 M/mcL (3.82-4.97); Red Cell Distribution Width 15.1 % (11.5-14.5); Segmented Neutrophils % 84.7 %
[2017-09-30] MEDS: *HR* OxyCODONE/APAP 10/325 TABLET PO PRN ×3 (04:16→23:24)
[2017-09-30 04:23] LABS: Large Platelets Present (Not Present); Platelet Estimate Normal (Normal); Reactive Lymphocytes Present (Not Present); Smudge Cells Present (Not Present); Toxic Granulation Present (Not Present); Toxic Vacuolation Present (Not Present)
[2017-09-30 05:35] LABS: BUN/Creatinine Ratio 22 (6-26); Blood Urea Nitrogen 16 mg/dL (8-23); Calcium 8.8 mg/dL (8.6-10.3); Carbon Dioxide 25 mEq/L (23-29); Chloride 101 mEq/L (98-107); Glucose 101 mg/dL (70-105); Osmolality,Calculated 277 (280-300); Potassium 3.8 mEq/L (3.5-5.1); Sodium 133 mEq/L (136-145); eGFR For African Americans > 60 (> 60); eGFR For Non-African Americans > 60 (> 60)
[2017-09-30] MEDS: Budesonide/Formoterol 80/4.5 MDI IH SCH ×2 (07:35→20:00)
[2017-09-30] MEDS: *HR* Heparin 5,000 UNIT/ML VIAL SQ SCH ×3 (08:57→23:25)
[2017-09-30] MEDS: Aspirin Enteric Coated 81 MG Tablet PO SCH (08:57)
[2017-09-30] MEDS: Cholecalciferol (D-3) 1,000 UNIT TABLET PO SCH (08:58)
[2017-09-30] MEDS: predniSONE 20 MG TABLET PO SCH (08:58)
[2017-09-30] MEDS: Magnesium Oxide 400 MG TABLET PO SCH (08:58)
[2017-09-30] MEDS: (Roflumilast [Daliresp] 500 MCG) PO SCH (09:01)
--- NOTE | 2017-09-30 11:24 | Internal Med Progress Note ---
<Dany Estrada - Last Filed: 09/30/17 11:21> Date of Encounter: 09/30/17 Time of Encounter: 11:00 - Assessment and plan (1) Sepsis Current Visit: Yes Status: Acute Assessment and plan: Due to right lung pneumonia & COPD exacerbation. Hypoxic & Hypercapneic respiratory failure - associated hypoxia, hypercapnia, and red "bloody" sputum - Associated leukocytosis; improved at 19.2K today. - VBG on initial workup: pH 7.32, PCO2 54, PO2 40, HCO3 28 - also mildly hyponatremia get 129 on initial evaluation - lactate series: 2.9, 4.6, 3.0 - CXR demonstrated right-sided pneumonia throughout multiple lobes, and emphysematous change - CT demonstrated right pleural effusion which prompted thoracentesis on 2017; 30 to 50 mLs aspirated; exudative with cultures pending. - patient did become tachycardic today; see plan below Plan - continue O2 titrated as needed to maintain saturations above 88%; 500 control and nasal O2 - viral panel negative - sputum culture, prelim positive for bacteria with final differentiation & sensitivity pending - pleural fluid exudate is and prelim negative for bacteria - if decompensates, check ABG and BiPAP accordingly - monitor sodium level QAM; stable and improving - potassium normal this morning - day 3 of PO steroids - continue azithromycin and Rocephin, day 3 for each - scheduled and PRN neb treatments - continue to hold chlorthalidone for possible edema/effusion; BPs are currently within normal limits - patient is currently tachycardic and was given single push dose IV Cardizem 10 mg which momentarily resolve the tachycardia - did CTA to assess for possible PE which was negative - restart continue PO Cardizem 30 mg Q6 hours CTA: - No evidence of pulmonary embolism. - Infiltrate in the deep tendon right lung. This may be due to an infection or aspiration. - Small pleural effusions, right greater than left. Cardiac diet DVT prophylaxis with subQ heparin Qualifiers: Sepsis type: sepsis due to unspecified organism Qualified Code(s): A41.9 - Sepsis, unspecified organism (2) CAP (community acquired pneumonia) Current Visit: Yes Status: Acute Qualifiers: Laterality: right Lung location: lower lobe of lung Qualified Code(s): J18.1 - Lobar pneumonia, unspecified organism (3) COPD with exacerbation Current Visit: Yes Status: Acute (4) Hypertension Current Visit: Yes Status: Chronic Assessment and plan: Normotensive Qualifiers: Hypertension type: essential hypertension Qualified Code(s): I10 - Essential (primary) hypertension (5) Hyponatremia Current Visit: Yes Status: Acute Assessment and plan: Stable and following (6) DVT prophylaxis Current Visit: Yes Status: Acute Assessment and plan: As above (7) Atrial fibrillation with RVR Current Visit: Yes Status: Acute Assessment and plan: Plans as above; monitoring heart rate and placing patient on PO Cardizem. Current HR is 90. - Time Spent With Patient Total time spent is greater than 50% in coordination of care (as documented) at patient's floor/unit and/or counseling patient: - Subjective Interval history: Continues to subjectively improve. Saturating 96 on 3 L I nasal cannula which is much better than previous. Patient does not have any notable pain status post thoracentesis. Pleural fluid exudative in quality with culture pending. - Constitutional Vitals: Temp Pulse Resp BP Pulse Ox 98 F 100 16 135/76 93 09/30/17 11:19 09/30/17 11:19 09/30/17 11:19 09/30/17 11:19 09/30/17 11:19 Stable exam from 09/29/2017 CONSTITUTIONAL: Alert and oriented X3, on humidified 3 L of oxygen by nasal cannula saturating 96 %. HEAD: Normocephalic; atraumatic. EYES: PER, no scleral icterus, no drainage, no conjunctival injection NOSE: nasal cannula in place, no rhinorrhea Oropharynx: pink/moist, no tonsillar edema/erythema/exudates RESP: NRD without use of accessory musculature, lung sounds somewhat diminished across all right lung garibay; no wheezes heard nor basilar rales/ rhonchi. Thorax: thoracentesis puncture site clean, dry, and without any signs of infection CARD: Regular rhythm, without murmurs, rubs, or gallop; pulse rate 90-100 currently off of Cardizem drip SKIN: normal appearance, no pallor/diaphoresis,mottling,jaundice,cyanosis EXT: Rad pulses 2+ and symmetrical; no lateralizing edema; no other lesions seen PSYCH: appropriate mood/affect Internal Medicine: Result - Labs CBC & Chem 7: 09/30/17 03:39 09/30/17 04:58 Labs: Short CBC 05/02/18 Range/Units 03:39 WBC 19.2 H (4.3-11.1) K/mcL Hgb 10.6 L (11.5-15.4) g/dL Hct 31.7 L (35.3-44.9) % Plt Count 293 (140-400) K/mcL Neutrophils # 16.3 H (1.6-8.9) K/mcL BMP 09/30/17 04:58 Sodium 133 L Potassium 3.8 Chloride 101 Carbon Dioxide 25 BUN 16 Creatinine 0.73 Glucose 101 Calcium 8.8 - Impressions Impressions Chest CTA 09/29/17 10:45 IMPRESSION: No evidence of pulmonary embolism. Infiltrate in the deep tendon right lung. This may be due to an infection or aspiration. Small pleural effusions, right greater than left. Emphysema. Calcified atheromatous plaque and coronary calcifications. D/ / Alexis Quezada / Alexis Quezada Interpreting Provider: Alexis Quezada Chest X-Ray 09/29/17 15:42 IMPRESSION: 1. Stable asymmetric consolidative changes more prominent on the right. 2. No pneumothorax. D/ / 09/29/2017 16:06:07 Greyson Danielson MD / iman Interpreting Provider: Greyson Danielson MD Consult Discharge Plan - Plan Referrals: Vladimir Cho MD [Primary Care Provider] - 10/06/17 9:45 am <Ming Ott T - Last Filed: 09/30/17 12:46> Date of Encounter: 09/30/17 - Assessment and plan (1) CAP (community acquired pneumonia) Current Visit: Yes Status: Acute Qualifiers: Laterality: right Lung location: lower lobe of lung Qualified Code(s): J18.1 - Lobar pneumonia, unspecified organism (2) COPD with exacerbation Current Visit: Yes Status: Acute (3) Sepsis Current Visit: Yes Status: Acute Qualifiers: Sepsis type: sepsis due to unspecified organism Qualified Code(s): A41.9 - Sepsis, unspecified organism (4) Hypertension Current Visit: Yes Status: Chronic Qualifiers: Hypertension type: essential hypertension Qualified Code(s): I10 - Essential (primary) hypertension (5) DVT prophylaxis Current Visit: Yes Status: Acute (6) Hyponatremia Current Visit: Yes Status: Acute (7) Atrial fibrillation with RVR Current Visit: Yes Status: Acute - Time Spent With Patient Total time spent is greater than 50% in coordination of care (as documented) at patient's floor/unit and/or counseling patient: - Constitutional Vitals: Temp Pulse Resp BP Pulse Ox 98 F 100 16 135/76 93 09/30/17 11:19 09/30/17 11:19 09/30/17 11:19 09/30/17 11:19 09/30/17 11:19 Internal Medicine: Result - Labs CBC & Chem 7: 09/30/17 03:39 09/30/17 04:58 Labs: Short CBC 09/30/17 Range/Units 03:39 WBC 19.2 H (4.3-11.1) K/mcL Hgb 10.6 L (11.5-15.4) g/dL Hct 31.7 L (35.3-44.9) % Plt Count 293 (140-400) K/mcL Neutrophils # 16.3 H (1.6-8.9) K/mcL BMP 09/30/17 04:58 Sodium 133 L Potassium 3.8 Chloride 101 Carbon Dioxide 25 BUN 16 Creatinine 0.73 Glucose 101 Calcium 8.8 - Impressions Impressions Chest X-Ray 09/29/17 15:42 IMPRESSION: 1. Stable asymmetric consolidative changes more prominent on the right. 2. No pneumothorax. D/ / 09/29/2017 16:06:07 Greyson Danielson MD / bcarter Interpreting Provider: Greyson Danielson MD - Attending Attestation I examined this patient on 09/30/17, and my medical decision-making was reviewed with the Resident Physician. I agree with the documented findings, disposition and treatment plan as described except to the extent set forth below. 72 F with Afib with RVR, Acute hypoxic resp failure, Sepsis secondary to PNA, COPDE. Hypoxia is improving, now on 4L, continue to wean off, HR controlled with cardizem Discussed anticoagulation with the patient, roman check requested Physical exam : Chest auscultation showed improved air entry. Labs and Imaging reviewed and noted. ECHO noted-mild LVDD. CTA 09/29 ruled out pulmonary embolism. Shows multilobar pneumonia which right- sided pleural effusion. Right-sided thoracentesis done at the bedside 09/29, work up shows exudative, culture is pendin Plan: Continue current antibiotics, start on anticoagulation for Afib, and wean O2 as tolerated. Switch cardizem to po, stop Nifedipine, continue other meds Rest of details as in the resident physicians documentation.
[2017-09-30] MEDS: Letrozole 2.5 MG TABLET PO SCH (12:11)
[2017-09-30] MEDS: Azithromycin 500 MG in D5% in Water 250 ML IVPB SCH (14:05)
[2017-09-30] MEDS: cefTRIAXone 1,000 MG in Water for inj. (sterile) 20 ML 10 ML IVP SCH (14:06)
[2017-09-30] MEDS: Gabapentin 300 MG CAPSULE PO SCH (21:57)
[2017-09-30] MEDS: traZODone 50 MG TABLET PO SCH (21:57)
[2017-09-30] MEDS: rOPINIRole 1 MG TABLET PO SCH (21:57)
[2017-10-01] MEDS: Levalbuterol Neb 0.63 MG/3 ML IH SCH ×5 (04:22→19:49)
[2017-10-01] MEDS: Ipratropium Neb 0.5 MG NEBULIZER IH SCH ×5 (04:22→19:49)
[2017-10-01] MEDS: *HR* OxyCODONE/APAP 10/325 TABLET PO PRN ×3 (06:24→20:06)
[2017-10-01 06:42] LABS: Basophils # 0.1 K/mcL (0.0-0.2); Basophils % 0.4 %; Eosinophils # 0.2 K/mcL (0.0-0.6); Eosinophils % 1.1 %; Hematocrit 36.2 % (35.3-44.9); Hemoglobin 11.9 g/dL (11.5-15.4); Immature Granulocytes % 2.5 % (0-4); Lymphocytes # 2.2 K/mcL (0.6-4.6); Lymphocytes % 15.2 %; Mean Corpuscular HGB Conc 32.9 g/dL (31.6-35.5); Mean Corpuscular Hemoglobin 30.6 pg (28.0-33.3); Mean Corpuscular Volume 93.1 fL (83.0-100.0); Mean Platelet Volume 8.9 fL (9.4-12.4); Monocytes # 0.9 K/mcL (0.0-1.3); Monocytes % 6.4 %; Neutrophils # 10.9 K/mcL (1.6-8.9); Platelet Count 394 K/mcL (140-400); Red Blood Count 3.89 M/mcL (3.82-4.97); Red Cell Distribution Width 14.9 % (11.5-14.5); Segmented Neutrophils % 74.4 %
[2017-10-01 06:46] LABS: INR 0.9
[2017-10-01 07:03] LABS: BUN/Creatinine Ratio 20 (6-26); Blood Urea Nitrogen 14 mg/dL (8-23); Calcium 9.6 mg/dL (8.6-10.3); Carbon Dioxide 30 mEq/L (23-29); Chloride 99 mEq/L (98-107); Glucose 88 mg/dL (70-105); Osmolality,Calculated 280 (280-300); Potassium 4.2 mEq/L (3.5-5.1); Sodium 135 mEq/L (136-145); eGFR For African Americans > 60 (> 60); eGFR For Non-African Americans > 60 (> 60)
[2017-10-01] MEDS: Budesonide/Formoterol 80/4.5 MDI IH SCH ×2 (07:35→19:49)
--- NOTE | 2017-10-01 09:14 | Internal Med Progress Note ---
<Dany Estrada - Last Filed: 10/01/17 13:05> Date of Encounter: 10/01/17 Time of Encounter: 07:45 - Assessment and plan (1) Sepsis Current Visit: Yes Status: Acute Assessment and plan: Due to right lung pneumonia & COPD exacerbation. Hypoxic & Hypercapneic respiratory failure - associated hypoxia, hypercapnia, and red "bloody" sputum - Associated leukocytosis; improved at 19.2K today. - VBG on initial workup: pH 7.32, PCO2 54, PO2 40, HCO3 28 - also mildly hyponatremia get 129 on initial evaluation - lactate series: 2.9, 4.6, 3.0 - CXR demonstrated right-sided pneumonia throughout multiple lobes, and emphysematous change - CT demonstrated right pleural effusion which prompted thoracentesis on 2017; 30 to 50 mLs aspirated; exudative with culture pending. - patient continues to be tachycardic today with rate 160s; see plan below Plan - continue O2 titrated as needed to maintain saturations above 88%; 500 control and nasal O2 - viral panel negative - sputum culture, normal respiratory floor per lab with no pending sensitivities - pleural fluid exudate is and prelim negative for bacteria - if decompensates, check ABG and BiPAP - monitor sodium level QAM; normal - potassium normal this morning - day 4 (of 5) of PO steroids - continue azithromycin and Rocephin, day 4 for each (cont through 5 days for Azithromycin & 7 days for Rocephin) - scheduled and PRN neb treatments - CTA negative for PE - Starting on Lasix for possible volume overload contributing to hypoxic respiratory failure CTA: - No evidence of pulmonary embolism. - Infiltrate in the deep tendon right lung. This may be due to an infection or aspiration. - Small pleural effusions, right greater than left. Cardiac diet DVT prophylaxis with subQ heparin Qualifiers: Sepsis type: sepsis due to unspecified organism Qualified Code(s): A41.9 - Sepsis, unspecified organism (2) CAP (community acquired pneumonia) Current Visit: Yes Status: Acute Assessment and plan: As above Qualifiers: Laterality: right Lung location: lower lobe of lung Qualified Code(s): J18.1 - Lobar pneumonia, unspecified organism (3) COPD with exacerbation Current Visit: Yes Status: Acute Assessment and plan: As above (4) Hypertension Current Visit: Yes Status: Chronic Assessment and plan: Normotensive Qualifiers: Hypertension type: essential hypertension Qualified Code(s): I10 - Essential (primary) hypertension (5) Hyponatremia Current Visit: Yes Status: Acute Assessment and plan: Stable and following (6) DVT prophylaxis Current Visit: Yes Status: Acute Assessment and plan: Starting Warfarin (7) Atrial fibrillation with RVR Current Visit: Yes Status: Acute Assessment and plan: New with no known history; persists with RVR rate today of 160s. - Start on Lopressor 25mg PO BID - Start on Warfarin PTD - may use Cardizem push/drip as needed - carefully monitor BP prior to additional doses of rate control medications - Time Spent With Patient Total time spent is greater than 50% in coordination of care (as documented) at patient's floor/unit and/or counseling patient: - Subjective Interval history: Continues to subjectively improve. Anxious for discharge saying she will leave if we don't send her home by 3pm. Son present. Saturating 90 on 4 L via nasal cannula. Patient does not have any notable pain status post thoracentesis. Continues to be tachycardic. Explained to patient that she is still not stable for discharge. - Constitutional Vitals: Temp Pulse Resp BP Pulse Ox 97.6 F 93 16 107/84 90 10/01/17 07:11 10/01/17 07:11 10/01/17 07:35 10/01/17 07:11 10/01/17 07:35 Stable exam from 09/30/17 CONSTITUTIONAL: Alert and oriented X3, on humidified 4L of oxygen by nasal cannula saturating 96 %; states feels fine and is in no apparent distress at all. HEAD: Normocephalic; atraumatic. EYES: PER, no scleral icterus, no drainage, no conjunctival injection NOSE: nasal cannula in place, oxygen on 4 L saturating 89% Oropharynx: pink/moist, no tonsillar edema/erythema/exudates RESP: NRD without use of accessory musculature, lung sounds somewhat diminished across all right lung garibay; no wheezes heard nor basilar rales/ rhonchi. Thorax: thoracentesis puncture site clean, dry, and without any signs of infection CARD: Regular rhythm, without murmurs, rubs, or gallop; pulse rate 160s currently off of Cardizem drip SKIN: normal appearance, no pallor/diaphoresis,mottling,jaundice,cyanosis EXT: Rad pulses 2+ and symmetrical; no lateralizing edema; no other lesions seen PSYCH: appropriate mood/affect Internal Medicine: Result - Labs CBC & Chem 7: 10/01/17 06:30 10/01/17 06:30 Labs: Short CBC 10/01/17 Range/Units 06:30 WBC 14.6 H (4.3-11.1) K/mcL Hgb 11.9 (11.5-15.4) g/dL Hct 36.2 (35.3-44.9) % Plt Count 394 (140-400) K/mcL Neutrophils # 10.9 H (1.6-8.9) K/mcL BMP 10/01/17 06:30 Sodium 135 L Potassium 4.2 Chloride 99 Carbon Dioxide 30 H BUN 14 Creatinine 0.70 Glucose 88 Calcium 9.6 - ABG Interpretation ABG results: PT/INR, D-dimer PT 10.0 Seconds (9.4-12.1) 10/01/17 06:30 Consult Discharge Plan - Plan Referrals: Vladimir Cho MD [Primary Care Provider] - 10/06/17 9:45 am Prescriptions: Apixaban [Eliquis] 5 mg PO BID #60 tablet <Ming Ott - Last Filed: 10/01/17 15:08> Date of Encounter: 10/01/17 - Assessment and plan (1) CAP (community acquired pneumonia) Current Visit: Yes Status: Acute Qualifiers: Laterality: right Lung location: lower lobe of lung Qualified Code(s): J18.1 - Lobar pneumonia, unspecified organism (2) COPD with exacerbation Current Visit: Yes Status: Acute (3) Sepsis Current Visit: Yes Status: Acute Qualifiers: Sepsis type: sepsis due to unspecified organism Qualified Code(s): A41.9 - Sepsis, unspecified organism (4) Hypertension Current Visit: Yes Status: Chronic Qualifiers: Hypertension type: essential hypertension Qualified Code(s): I10 - Essential (primary) hypertension (5) DVT prophylaxis Current Visit: Yes Status: Acute (6) Hyponatremia Current Visit: Yes Status: Acute (7) Atrial fibrillation with RVR Current Visit: Yes Status: Acute - Time Spent With Patient Total time spent is greater than 50% in coordination of care (as documented) at patient's floor/unit and/or counseling patient: - Constitutional Vitals: Temp Pulse Resp BP Pulse Ox 97.6 F 109 16 123/83 91 10/01/17 10:43 10/01/17 10:43 10/01/17 11:31 10/01/17 10:43 10/01/17 11:31 Internal Medicine: Result - Labs CBC & Chem 7: 10/01/17 06:30 10/01/17 06:30 Labs: Short CBC 10/01/17 Range/Units 06:30 WBC 14.6 H (4.3-11.1) K/mcL Hgb 11.9 (11.5-15.4) g/dL Hct 36.2 (35.3-44.9) % Plt Count 394 (140-400) K/mcL Neutrophils # 10.9 H (1.6-8.9) K/mcL BMP 10/01/17 06:30 Sodium 135 L Potassium 4.2 Chloride 99 Carbon Dioxide 30 H BUN 14 Creatinine 0.70 Glucose 88 Calcium 9.6 - ABG Interpretation ABG results: PT/INR, D-dimer PT 10.0 Seconds (9.4-12.1) 10/01/17 06:30 - Attending Attestation I examined this patient on 10/01/17, and my medical decision-making was reviewed with the Resident Physician. I agree with the documented findings, disposition and treatment plan as described except to the extent set forth below. 72 F with Afib with RVR, Acute hypoxic resp failure, Sepsis secondary to PNA, COPDE. Hypoxia is improving, now on 4L, continue to wean. Discussed anticoagulation with the patient, roman check requested, patient cannot afford the medication. This mrn she is also in Afib RVR and noted to have pedal edema. EKG done at bedside shows Afib with RVR She denied CP, SOB at rest Physical exam: Chest auscultation showed improved air entry, still having crackles, few scattered wheezing. Labs and Imaging reviewed and noted. ECHO noted-mild LVDD. CTA 09/29 ruled out pulmonary embolism. Shows multilobar pneumonia which right- sided pleural effusion. Right-sided thoracentesis done at the bedside 09/29, work up shows exudative, culture is negative Plan: Continue current antibiotics, start on Warfarin for Afib, and wean O2 as tolerated. Increase po Cardizem, add metoprolol, start on Lasix , continue other current management Rest of details as in the resident physicians documentation.
[2017-10-01] MEDS: Cholecalciferol (D-3) 1,000 UNIT TABLET PO SCH (09:24)
[2017-10-01] MEDS: Aspirin Enteric Coated 81 MG Tablet PO SCH (09:24)
[2017-10-01] MEDS: Magnesium Oxide 400 MG TABLET PO SCH (09:24)
[2017-10-01] MEDS: predniSONE 20 MG TABLET PO SCH (09:25)
[2017-10-01] MEDS: Azithromycin 250 MG TABLET PO SCH (09:25)
[2017-10-01] MEDS: *HR* Heparin 5,000 UNIT/ML VIAL SQ SCH ×3 (09:26→23:59)
[2017-10-01] MEDS ORDERED: *HR* Metoprolol 5 MG/5 ML VIAL IVP ONE ×2 (09:28→09:30)
[2017-10-01] MEDS: (Roflumilast [Daliresp] 500 MCG) PO SCH (09:30)
[2017-10-01] MEDS: Letrozole 2.5 MG TABLET PO SCH (11:15)
[2017-10-01] MEDS: Furosemide 40 MG/4 ML VIAL IVP SCH (11:15)
[2017-10-01] MEDS: dilTIAZem HCl 60 MG TABLET PO SCH ×2 (12:18→19:12)
[2017-10-01] MEDS: cefTRIAXone 1,000 MG in Water for inj. (sterile) 20 ML 10 ML IVP SCH (12:18)
--- NOTE | 2017-10-01 16:10 | Electrocardiograph Report ---
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
--- NOTE | 2017-10-01 16:10 | Electrocardiograph Report ---
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
--- NOTE | 2017-10-01 16:10 | Electrocardiograph Report ---
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
--- NOTE | 2017-10-01 16:32 | Electrocardiograph Report ---
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
[2017-10-01] MEDS ORDERED: *HR* Warfarin 3 MG TABLET PO ONE (18:00)
[2017-10-01] MEDS ORDERED: Warfarin perPT PO PRN (18:00)
[2017-10-01] MEDS ORDERED: 0.9 % Sodium Chloride 500 ML ONE (18:23)
[2017-10-01] MEDS ORDERED: 0.9 % Sodium Chloride 500 ML IVC ONE (18:32)
[2017-10-01] MEDS: rOPINIRole 1 MG TABLET PO SCH (20:05)
[2017-10-01] MEDS: traZODone 50 MG TABLET PO SCH (20:06)
[2017-10-01] MEDS: Gabapentin 300 MG CAPSULE PO SCH (20:06)
[2017-10-02] MEDS: Levalbuterol Neb 0.63 MG/3 ML IH SCH ×5 (00:15→19:50)
[2017-10-02] MEDS: Ipratropium Neb 0.5 MG NEBULIZER IH SCH ×5 (00:15→19:50)
[2017-10-02] MEDS: dilTIAZem HCl 60 MG TABLET PO SCH (04:09)
[2017-10-02] MEDS: *HR* OxyCODONE/APAP 10/325 TABLET PO PRN ×3 (04:15→22:58)
[2017-10-02 04:52] LABS: Basophils # 0.1 K/mcL (0.0-0.2); Basophils % 0.6 %; Eosinophils # 0.2 K/mcL (0.0-0.6); Eosinophils % 1.4 %; Hematocrit 37.7 % (35.3-44.9); Hemoglobin 12.5 g/dL (11.5-15.4); Immature Granulocytes % 4.5 % (0-4); Lymphocytes # 2.1 K/mcL (0.6-4.6); Lymphocytes % 16.1 %; Mean Corpuscular HGB Conc 33.2 g/dL (31.6-35.5); Mean Corpuscular Hemoglobin 30.7 pg (28.0-33.3); Mean Corpuscular Volume 92.6 fL (83.0-100.0); Mean Platelet Volume 9.2 fL (9.4-12.4); Monocytes # 1.1 K/mcL (0.0-1.3); Monocytes % 8.3 %; Neutrophils # 8.9 K/mcL (1.6-8.9); Platelet Count 395 K/mcL (140-400); Red Blood Count 4.07 M/mcL (3.82-4.97); Red Cell Distribution Width 14.6 % (11.5-14.5); Segmented Neutrophils % 69.1 %
[2017-10-02 05:05] LABS: Prothrombin Time 10.7 Seconds (9.4-12.1)
[2017-10-02 05:14] LABS: BUN/Creatinine Ratio 21 (6-26); Blood Urea Nitrogen 16 mg/dL (8-23); Calcium 9.1 mg/dL (8.6-10.3); Carbon Dioxide 29 mEq/L (23-29); Chloride 98 mEq/L (98-107); Glucose 91 mg/dL (70-105); Osmolality,Calculated 283 (280-300); Potassium 3.9 mEq/L (3.5-5.1); Sodium 136 mEq/L (136-145); eGFR For African Americans > 60 (> 60); eGFR For Non-African Americans > 60 (> 60)
[2017-10-02] MEDS: Budesonide/Formoterol 80/4.5 MDI IH SCH ×2 (07:25→19:50)
[2017-10-02] MEDS ORDERED: Diltiazem CD (24hr) 180 MG CAPSULE PO SCH (08:00)
[2017-10-02] MEDS: Azithromycin 250 MG TABLET PO SCH (08:15)
[2017-10-02] MEDS: (Roflumilast [Daliresp] 500 MCG) PO SCH (08:18)
[2017-10-02] MEDS: Cholecalciferol (D-3) 1,000 UNIT TABLET PO SCH (08:19)
[2017-10-02] MEDS: Magnesium Oxide 400 MG TABLET PO SCH (08:20)
[2017-10-02] MEDS: predniSONE 20 MG TABLET PO SCH (08:21)
[2017-10-02] MEDS: Aspirin Enteric Coated 81 MG Tablet PO SCH (08:21)
[2017-10-02] MEDS: Furosemide 40 MG/4 ML VIAL IVP SCH (08:22)
--- NOTE | 2017-10-02 08:56 | Internal Med Progress Note ---
<Yvon Mcintosh - Last Filed: 10/02/17 11:06> Date of Encounter: 10/02/17 Time of Encounter: 08:55 - Assessment and plan (1) Sepsis Current Visit: Yes Status: Acute Assessment and plan: Due to right lung pneumonia & COPD exacerbation. Hypoxic & Hypercapneic respiratory failure Associated hypoxia, hypercapnia, and red "bloody" sputum, leukocytosis - VBG on initial workup: pH 7.32, PCO2 54, PO2 40, HCO3 28 Lactate series: 2.9, 4.6, 3.0 (2) CAP (community acquired pneumonia) Current Visit: Yes Status: Acute Assessment and plan: CXR demonstrated right-sided pneumonia throughout multiple lobes, and emphysematous change CT demonstrated right pleural effusion which prompted thoracentesis on 2017; 30 to 50 mLs aspirated; exudative with culture pending. CTA: - No evidence of pulmonary embolism. - Infiltrate in the deep tendon right lung. This may be due to an infection or aspiration. - Small pleural effusions, right greater than left. Sputum culture, normal respiratory floor per lab with no pending sensitivities pleural fluid exudate is and prelim negative for bacteria viral panel negative Continue azithromycin and Rocephin, day 5 for each (cont through 5 days for Azithromycin & 7 days for Rocephin) Day 5 (of 5) of PO steroids Scheduled and PRN neb treatments Continue O2 titrated as needed to maintain saturations above 88%; If decompensates, check ABG and start BiPAP Continue Lasix for fluid overload contributing to hypoxic respiratory failure (3) COPD with exacerbation Current Visit: Yes Status: Acute Assessment and plan: As above (4) Hypertension Current Visit: Yes Status: Chronic Assessment and plan: Better controlled today Continue current meds (5) Hyponatremia Current Visit: Yes Status: Acute Assessment and plan: Stable. Monitor (6) DVT prophylaxis Current Visit: Yes Status: Acute Assessment and plan: Started Warfarin (7) Atrial fibrillation with RVR Current Visit: Yes Status: Acute Assessment and plan: New with no known history; persists with RVR rate today of 160s. Continue Lopressor 25mg PO BID Continue on Warfarin PTD Changed Cardizem Cd Carefully monitor BP prior to additional doses of rate control medications Cardiology consulted - Time Spent With Patient Total time spent is greater than 50% in coordination of care (as documented) at patient's floor/unit and/or counseling patient: - Subjective Interval history: Patient seen and examined resting comfortably in bedside chair. Her HR remains better controlled today on Cardizem Cd PO. Patient reports SOB is improving and she denies any new c/o. Cardiology consulted. - Constitutional Vitals: Temp Pulse Resp BP Pulse Ox 97 F L 85 16 150/68 95 10/02/17 06:29 10/02/17 06:29 10/02/17 07:25 10/02/17 06:29 10/02/17 07:25 General appearance: Present: cooperative, A&O X 3, morbidly obese, no acute distress, answers questions appropriately - Head Head exam: Present: atraumatic, normocephalic - Eye Eye exam: Present: PERRL, conjuntiva pink, sclera anicteric Pupils: Present: PERRL - ENT ENT exam: Present: mucous membranes dry, normal oropharynx - Neck Neck exam general surgery: Present: supple, trachea midline. Absent: lymphadenopathy - Respiratory Respiratory exam: Present: decreased breath sounds (BiBasilar), rales (mild), wheezes. Absent: accessory muscle use, CTAB, rhonchi - Cardiovascular Cardiovascular exam: Present: RRR, +S1, +S2. Absent: diastolic murmur, gallop, rubs, systolic murmur - GI/Abdominal GI/Abdominal exam: Present: normal bowel sounds, soft, no peritoneal signs. Absent: distended, tenderness - Extremities Exam Extremities exam: Present: pedal edema (1+), warm, radial pulses palpable and symmetrical. Absent: calf tenderness, cyanotic - Back Exam Back exam: Present: normal inspection. Absent: tenderness - Neurological Exam Neurological exam: Present: CN II-XII intact, oriented X3, no focal deficits. Absent: pronater drift, facial droop, speech deficit - Psychiatric Psychiatric exam: Present: normal affect, normal mood - Skin Skin exam: Present: dry, intact, normal color, warm Internal Medicine: Result - Labs CBC & Chem 7: 10/02/17 04:08 10/02/17 04:08 Labs: Short CBC 10/02/17 Range/Units 04:08 WBC 12.9 H (4.3-11.1) K/mcL Hgb 12.5 (11.5-15.4) g/dL Hct 37.7 (35.3-44.9) % Plt Count 395 (140-400) K/mcL Neutrophils # 8.9 (1.6-8.9) K/mcL BMP 10/02/17 04:08 Sodium 136 Potassium 3.9 Chloride 98 Carbon Dioxide 29 BUN 16 Creatinine 0.77 Glucose 91 Calcium 9.1 - ABG Interpretation ABG results: PT/INR, D-dimer PT 10.7 Seconds (9.4-12.1) 10/02/17 04:08 - Pulse Oximetry Interpretation Digit-Finger Pulse Oximetry Readin (5L O2 via NC) Consult Discharge Plan - Plan Referrals: Vladimir Cho MD [Primary Care Provider] - 10/06/17 9:45 am Prescriptions: Apixaban [Eliquis] 5 mg PO BID #60 tablet <Ming Ott T - Last Filed: 10/02/17 17:28> Date of Encounter: 10/02/17 - Assessment and plan (1) CAP (community acquired pneumonia) Current Visit: Yes Status: Acute Qualifiers: Laterality: right Lung location: lower lobe of lung Qualified Code(s): J18.1 - Lobar pneumonia, unspecified organism (2) COPD with exacerbation Current Visit: Yes Status: Acute (3) Sepsis Current Visit: Yes Status: Acute Qualifiers: Sepsis type: sepsis due to unspecified organism Qualified Code(s): A41.9 - Sepsis, unspecified organism (4) Hypertension Current Visit: Yes Status: Chronic Qualifiers: Hypertension type: essential hypertension Qualified Code(s): I10 - Essential (primary) hypertension (5) DVT prophylaxis Current Visit: Yes Status: Acute (6) Hyponatremia Current Visit: Yes Status: Acute (7) Atrial fibrillation with RVR Current Visit: Yes Status: Acute - Time Spent With Patient Total time spent is greater than 50% in coordination of care (as documented) at patient's floor/unit and/or counseling patient: - Constitutional Vitals: Temp Pulse Resp BP Pulse Ox 98.1 F 101 19 146/79 93 10/02/17 15:29 10/02/17 15:29 10/02/17 15:29 10/02/17 15:29 10/02/17 15:29 Internal Medicine: Result - Labs CBC & Chem 7: 10/02/17 04:08 10/02/17 04:08 Labs: Short CBC 10/02/17 Range/Units 04:08 WBC 12.9 H (4.3-11.1) K/mcL Hgb 12.5 (11.5-15.4) g/dL Hct 37.7 (35.3-44.9) % Plt Count 395 (140-400) K/mcL Neutrophils # 8.9 (1.6-8.9) K/mcL BMP 10/02/17 04:08 Sodium 136 Potassium 3.9 Chloride 98 Carbon Dioxide 29 BUN 16 Creatinine 0.77 Glucose 91 Calcium 9.1 - ABG Interpretation ABG results: PT/INR, D-dimer PT 10.7 Seconds (9.4-12.1) 10/02/17 04:08 - Attending Attestation I examined this patient on 10/02/17, and my medical decision-making was reviewed with the Resident Physician. I agree with the documented findings, disposition and treatment plan as described except to the extent set forth below. 72 F with Afib with RVR, Acute hypoxic resp failure, Sepsis secondary to PNA, COPDE. She has made significant improvement overnight and her BP is better, as well as her heart rate. She was requiring 4 L of oxygen by nasal cannula. She has no new complaints. Physical exam: Chest auscultation showed improved air entry, few scattered wheezing. Labs and Imaging reviewed and noted. ECHO noted-mild LVDD. CTA 09/29 ruled out pulmonary embolism. Shows multilobar pneumonia which right- sided pleural effusion. Right-sided thoracentesis done at the bedside 09/29, work up shows exudative, culture is negative Plan: As completed 5 days of azithromycin and prednisone. Continue Rocephin to complete 7 days. Continue aspirin, Cardizem, metoprolol and Lasix. Cardiology recommendations noted and appreciated. Qualify patient for home oxygen. Rest of details as in the resident physicians documentation.
[2017-10-02] MEDS: *HR* Heparin 5,000 UNIT/ML VIAL SQ SCH ×2 (10:29→17:06)
[2017-10-02] MEDS: Letrozole 2.5 MG TABLET PO SCH (10:29)
--- NOTE | 2017-10-02 10:50 | Cardiology Consult Note ---
<Josue Correa R - Last Filed: 10/02/17 10:55> Date of Encounter: 10/02/17 Time of Encounter: 10:49 Assessment and Plan (1) PAF (paroxysmal atrial fibrillation) Current Visit: Yes Status: Acute New diagnosis of A-Fib in setting of sepsis, PNA and COPD exacerbation, now back in sinus rhythm. PAF. Agree with current AV codey blockers--Lopressor 25mg BID and Cardizem CD 180mg daily. TTE 09/28 EF preserved, mild LVDD, mild TR, mild phtn. [id number] is 3 (Age, HTN, Female). Of note, home med list includes Eliquis, but pt reports this is an error. She was not on anticoagulation at home. Recommend anticoagulation. Hospitalist started Coumadin. I discussed with pt regarding Coumadin vs. NOACs. She prefers NOAC if affordable, but I roman checked Eliquis and it is $200/month. Continue Coumadin and will refer to [facility] as outpt. Anticipate sign off once seen and evaluated by Dr. Riddle. Discussion w patient/family: The assessment and plan as outlined above was discussed with the patient and/or family members who expressed understanding and agreement. All questions were answered. Thank you for involving us in the care of your patient. Please call with any questions. I will discuss all the above with Dr. Riddle and make changes as necessary. History of Present Illness Consult date: 10/02/17 Requesting physician: Ming Ott Consult reason: A-Fib RVR Chief complaint: dyspnea History of present illness: Ms. Sifuentes is a 72 year old female with PMH of breast cancer, COPD, HTN, HLD, presented to ED for dyspnea, admitted for PNA, COPD exacerbation and sepsis. Went in to A-Fib RVR after admission and cardiology consulted for further recs. Pt denies chest pain, reports dyspnea is now back to baseline. She denies palpitations and is now back in sinus rhythm. Denies prior hx of A-Fib. TTE 09/28 EF 65%, mild LVDD, mild TR and mild phtn. Past Med Surg Social Fam HX - Past Medical History Medical history: COPD, hyperlipidemia, hypertension, other Psychiatric history: no psych history - Past Surgical History Surgical History: appendectomy, cataract, hip replacement, hysterectomy - Social History Smoking Status: Former smoker Smokeless Tobacco Status: No Alcohol use: none Drug use: none - Family History Father History Unknown: Yes Medications and Allergies Atorvastatin [Lipitor] 20 mg PO HS 02/15/15 [History] Chlorthalidone 25 mg PO DAILY 02/15/15 [History] Cyclobenzaprine [Flexeril] 10 mg PO DAILY 02/15/15 [History] Losartan [Cozaar] 25 mg PO DAILY 02/15/15 [History] Multivitamin [Multi-Day Vitamins] 1 each PO DAILY 02/15/15 [History] NIFEdipine [Nifedical Xl] 60 mg PO DAILY 02/15/15 [History] Potassium Chloride 20 meq PO AD 02/15/15 [History] Roflumilast [Daliresp] 500 mcg PO DAILY 02/15/15 [History] Ropinirole HCl [Requip] 4 mg PO HS 02/15/15 [History] TraZODone 200 mg PO HS 02/15/15 [History] OxyCODONE/APAP 10/325 [Percocet 10/325] 1 each PO Q6HR PRN #39 tablet 03/13/15 [ Rx] Vitamin E (Dl,Tocopheryl Acet) [Vitamin E] 400 unit PO BID #100 cap 08/20/15 [Rx ] Calcium Carbonate/Vitamin D3 [Calcium 600 + Vit D Tablet] 1 each PO BID #180 tablet 08/24/15 [Rx] Aspirin Enteric Coated [Aspirin EC] 81 mg PO DAILY 02/08/16 [History] Magnesium Oxide [Mgo] 1 tab PO DAILY #30 tablet 03/21/16 [Rx] Fluticasone/Salmeterol [Advair 250-50 Diskus] 1 each IH AD PRN 09/19/16 [History ] Letrozole [Femara] 2.5 mg PO DAILY #90 tablet 03/19/17 [Rx] Gabapentin [Neurontin] 1 tab PO HS 09/27/17 [History] Apixaban [Eliquis] 5 mg PO BID #60 tablet 09/30/17 [Rx] 3 Allergy/AdvReac Type Severity Reaction Status Date / Time levofloxacin [From Levaquin] AdvReac Itching Verified 09/27/17 12:05 Sulfa (Sulfonamide AdvReac Nausea Verified 09/27/17 12:05 Antibiotics) All Systems Review: The remainder of the systems were reviewed and are negative - Cardiovascular Cardiovascular: as per HPI, dyspnea on exertion - Respiratory Respiratory: dyspnea Physical Examination Vital Signs, Last 4 Hours Resp Pulse Ox 10/02/17 07:25 16 95 Vital Signs Temp Pulse Resp BP Pulse Ox 10/02/17 10:53 98 F 74 18 127/77 94 10/02/17 07:25 16 95 10/02/17 06:29 97 F L 85 19 150/68 93 10/02/17 05:23 150/75 10/02/17 04:00 98.7 F 84 20 160/84 94 10/02/17 00:15 17 95 10/02/17 00:00 98.8 F 87 20 146/74 95 10/01/17 20:00 98.3 F 148 22 101/87 94 10/01/17 19:50 24 95 10/01/17 18:04 97.8 F 147 23 96/79 93 10/01/17 16:15 18 96 10/01/17 15:34 98.2 F 94 20 93 10/01/17 11:31 16 91 Intake and Output 10/01/17 10/02/17 10/02/17 23:59 07:59 15:59 Intake Total 420 / 420 200 / 200 360 / 360 Output Total 700 / 700 1800 / 1800 1200 / 1200 Balance -280 / -280 -1600 / -1600 -840 / -840 Intake: Oral 420 / 420 200 / 200 360 / 360 Output: Urine 700 / 700 1800 / 1800 1200 / 1200 Other: Meal Dinner Breakfast Percent of Meal Consumed 100% 100% Stool Size Moderate Stool Consistency formed Stool Characteristics Normal for Patient Stool Color Green # Voids 1 Weight 97.7 kg Patient Weight 10/02/17 23:59 Weight 97.7 kg General: Conversant, No Apparent Distress HEENT: Atraumatic, Normocephaly, Mucus Membranes Moist Neck: No JVD, Normal carotid pulses Cardiac: Reg Rate and Rhythm, Normal S1 and S2, No Murmur Lungs: Other (diminished) Neuro: Alert and responsive, No focal deficits noted Abdomen: Soft, Non-Tender Skin: No rashes noted on visualized skin Musculoskeletal: No Chest Wall Tenderness Extremities: No Clubbing, No Cyanosis, No Edema, Normal Pulses Results 10/02/17 04:08 10/02/17 04:08 Lab Results 10/02/17 10/02/17 10/02/17 04:08 04:08 04:08 WBC 12.9 H Hgb 12.5 Hct 37.7 Plt Count 395 INR 1.0 Sodium 136 Potassium 3.9 Chloride 98 Carbon Dioxide 29 BUN 16 Creatinine 0.77 Glucose 91 Calcium 9.1 Short CBC 10/02/17 Range/Units 04:08 WBC 12.9 H (4.3-11.1) K/mcL Hgb 12.5 (11.5-15.4) g/dL Hct 37.7 (35.3-44.9) % Plt Count 395 (140-400) K/mcL Neutrophils # 8.9 (1.6-8.9) K/mcL BMP 10/02/17 Range/Units 04:08 Sodium 136 (136-145) mEq/L Potassium 3.9 (3.5-5.1) mEq/L Chloride 98 (98-107) mEq/L Carbon Dioxide 29 (23-29) mEq/L BUN 16 (8-23) mg/dL Creatinine 0.77 (0.60-1.20) mg/dL Glucose 91 (70-105) mg/dL Calcium 9.1 (8.6-10.3) mg/dL Active Medications Albuterol Sulfate (Proventil Neb) 2.5 mg IH Q2H PRN; Protocol PRN Reason: Shortness Of Breath/Wheezing Stop: 03/30/18 07:50 Aspirin (Aspirin Ec) 81 mg PO DAILY [facility] Stop: 03/30/18 09:01 Last Admin: 10/02/17 08:21 Dose: 81 mg Atorvastatin Calcium (Lipitor) 20 mg PO HS [facility] Stop: 03/29/18 21:01 Last Admin: 10/01/17 20:05 Dose: 20 mg Budesonide/Formoterol Fumarate (Symbicort) 2 puff IH BIDR [facility] Stop: 03/29/18 22:01 Last Admin: 10/02/17 07:25 Dose: 2 puff Calcium Carbonate (Tums) 500 mg PO BID [facility]ATT Stop: 03/30/18 21:01 Last Admin: 10/02/17 08:21 Dose: 500 mg Cyclobenzaprine HCl (Flexeril) 10 mg PO DAILY [facility] Stop: 03/30/18 09:01 Last Admin: 10/02/17 08:20 Dose: 10 mg Diltiazem HCl (Cardizem Cd) 180 mg PO DAILY [facility] Stop: 04/03/18 08:01 Last Admin: 10/02/17 08:20 Dose: 180 mg Furosemide (Lasix) 40 mg IVP DAILY [facility] Stop: 04/02/18 09:46 Last Admin: 10/02/17 08:22 Dose: 40 mg Gabapentin (Neurontin) 300 mg PO HS [facility]ATT Stop: 03/30/18 21:01 Last Admin: 10/01/17 20:06 Dose: 300 mg Heparin Sodium (Porcine) (Heparin) 5,000 unit SQ Q8HR [facility] Stop: 03/29/18 16:01 Last Admin: 10/02/17 10:29 Dose: 5,000 unit Ceftriaxone Sodium 1,000 mg/ (Sterile Water) 10 mls @ 300 mls/hr IVP Q24H [facility] Stop: 10/04/17 13:01 Last Admin: 10/01/17 12:18 Dose: 300 mls/hr Ipratropium [place] (Atrovent Neb) 0.5 mg IH Q4HWA [facility] Stop: 04/03/18 08:01 Last Admin: 10/02/17 07:25 Dose: 0.5 mg Letrozole (Femara) 2.5 mg PO 1100 [facility] Stop: 03/30/18 09:01 Last Admin: 10/02/17 10:29 Dose: 2.5 mg Levalbuterol HCl (Xopenex) 0.63 mg IH Q4HWA [facility] Stop: 04/03/18 08:01 Last Admin: 10/02/17 07:25 Dose: 0.63 mg Losartan Potassium (Cozaar) 25 mg PO DAILY [facility] PRN Reason: Protocol Stop: 03/30/18 09:01 Last Admin: 10/02/17 08:21 Dose: 25 mg Magnesium Oxide (Mag-Ox) 400 mg PO DAILY [facility] PRN Reason: Protocol Stop: 03/30/18 09:01 Last Admin: 10/01/17 09:24 Dose: 400 mg Metoprolol Tartrate (Lopressor) 25 mg PO BID [facility] Stop: 04/02/18 21:01 Last Admin: 10/02/17 08:21 Dose: 25 mg Naloxone HCl (Narcan) 0.4 mg IVP Q2MIN PRN PRN Reason: SEE COMMENTS Stop: 03/29/18 14:21 Oxycodone/Acetaminophen (Percocet 10/325) 1 each PO Q6HR PRN PRN Reason: Pain Stop: 03/29/18 14:13 Last Admin: 10/02/17 04:15 Dose: 1 each Pharmacy Profile Note (Patient Taking Own Medication) 0 each PO DAILY [facility] Stop: 03/30/18 09:01 Last Admin: 10/02/17 08:18 Dose: 1 each Potassium Chloride (Potassium Chloride) 20 meq PO BID [facility] Stop: 03/30/18 21:01 Last Admin: 10/02/17 08:21 Dose: 20 meq Prednisone (Prednisone) 40 mg PO DAILY [facility] Stop: 10/03/17 10:31 Last Admin: 10/02/17 08:21 Dose: 40 mg Ropinirole HCl (Requip) 4 mg PO HS [facility] Stop: 03/29/18 21:01 Last Admin: 10/01/17 20:05 Dose: 4 mg Trazodone HCl (Trazodone) 200 mg PO HS [facility] Stop: 03/29/18 21:01 Last Admin: 10/01/17 20:06 Dose: 200 mg Vitamin D (Vitamin D) 1,000 unit PO DAILY [facility] Stop: 03/31/18 09:01 Last Admin: 10/02/17 08:19 Dose: 1,000 unit Warfarin Sodium (Coumadin Perpt) 1 each PO DAILY@1800 PRN PRN Reason: SEE COMMENTS Stop: 04/02/18 18:01 - Imaging and Cardiology Echo: report reviewed - EKG Interpretation EKG results cardiology: personally reviewed (A-Fib RVR), other (12 hr tele AVG HR 84, was A-Fib RVR overnight, since converted to SR.) Consult Discharge Plan - Plan Referrals: Vladimir Cho MD [Primary Care Provider] - 10/06/17 9:45 am Prescriptions: Apixaban [Eliquis] 5 mg PO BID #60 tablet <Stephanie Riddle - Last Filed: 10/02/17 12:07> Date of Encounter: 10/02/17 - Attending Attestation I examined this patient and my medical decision-making was reviewed with the Resident Physician. I agree with the documented findings, disposition and treatment plan. developed newly discovered atrial fibrillation in setting of PNA now back in NSR. An echo demonstrated normal LVEF and no concerning valvular abnormalities. She is asymptomatic. Recommend continuing AVN blockers. She is agreeable to using coumadin for CVA prevention in setting of asymptomatic PAF (CHADSVASC 3). NOAC roman check cost prohibitive. Will sign off. Recommend outpatient follow up. Thank you for the consultation. Assessment and Plan Discussion w patient/family: The assessment and plan as outlined above was discussed with the patient and/or family members who expressed understanding and agreement. All questions were answered. Thank you for involving us in the care of your patient. Please call with any questions. History of Present Illness History of present illness: Ms. Sifuentes is a 72 year old female All Systems Review: The remainder of the systems were reviewed and are negative Physical Examination Vital Signs, Last 4 Hours Temp Pulse Resp BP Pulse Ox 10/02/17 11:17 18 95 10/02/17 10:53 98 F 74 18 127/77 94 Results 10/02/17 04:08 10/02/17 04:08 Lab Results 10/02/17 10/02/17 10/02/17 04:08 04:08 04:08 WBC 12.9 H Hgb 12.5 Hct 37.7 Plt Count 395 INR 1.0 Sodium 136 Potassium 3.9 Chloride 98 Carbon Dioxide 29 BUN 16 Creatinine 0.77 Glucose 91 Calcium 9.1
[2017-10-02] MEDS: cefTRIAXone 1,000 MG in Water for inj. (sterile) 20 ML 10 ML IVP SCH (12:40)
[2017-10-02] MEDS ORDERED: *HR* Warfarin 3 MG TABLET PO SCH (18:00)
[2017-10-02] MEDS: rOPINIRole 1 MG TABLET PO SCH (20:36)
[2017-10-02] MEDS: Gabapentin 300 MG CAPSULE PO SCH (20:36)
[2017-10-02] MEDS: traZODone 50 MG TABLET PO SCH (22:58)
[2017-10-03] MEDS: *HR* Heparin 5,000 UNIT/ML VIAL SQ SCH ×2 (00:01→09:42)
[2017-10-03] MEDS: *HR* OxyCODONE/APAP 10/325 TABLET PO PRN ×2 (05:02→12:10)
[2017-10-03 06:31] VITALS: BP 162/75
[2017-10-03] MEDS: Budesonide/Formoterol 80/4.5 MDI IH SCH (07:15)
[2017-10-03] MEDS: Ipratropium Neb 0.5 MG NEBULIZER IH SCH ×2 (07:15→11:57)
[2017-10-03] MEDS: Levalbuterol Neb 0.63 MG/3 ML IH SCH ×2 (07:15→11:57)
[2017-10-03 07:36] LABS: Hematocrit 36.7 % (35.3-44.9); Mean Corpuscular HGB Conc 32.7 g/dL (31.6-35.5); Mean Corpuscular Hemoglobin 30.4 pg (28.0-33.3); Mean Corpuscular Volume 92.9 fL (83.0-100.0); Mean Platelet Volume 8.8 fL (9.4-12.4); Platelet Count 406 K/mcL (140-400); Red Blood Count 3.95 M/mcL (3.82-4.97); Red Cell Distribution Width 14.6 % (11.5-14.5)
[2017-10-03 07:41] LABS: Prothrombin Time 10.5 Seconds (9.4-12.1)
[2017-10-03 07:46] LABS: BUN/Creatinine Ratio 24 (6-26); Blood Urea Nitrogen 18 mg/dL (8-23); Carbon Dioxide 29 mEq/L (23-29); Chloride 98 mEq/L (98-107); Glucose 84 mg/dL (70-105); Osmolality,Calculated 281 (280-300); Potassium 3.9 mEq/L (3.5-5.1); Sodium 135 mEq/L (136-145); eGFR For African Americans > 60 (> 60); eGFR For Non-African Americans > 60 (> 60)
[2017-10-03 08:02] LABS: Eosinophils # 0.9 K/mcL (0.0-0.6); Lymphocytes # 3.6 K/mcL (0.6-4.6); Monocytes # 1.9 K/mcL (0.0-1.3); Neutrophils # 10.7 K/mcL (1.6-8.9)
[2017-10-03 08:05] LABS: Anisocytosis 1+ (Not Present)
[2017-10-03] MEDS ORDERED: Diltiazem CD (24hr) 240 MG CAPSULE PO SCH (09:00)
[2017-10-03] MEDS: (Roflumilast [Daliresp] 500 MCG) PO SCH (09:40)
[2017-10-03] MEDS: Magnesium Oxide 400 MG TABLET PO SCH (09:40)
[2017-10-03] MEDS: Furosemide 40 MG/4 ML VIAL IVP SCH (09:42)
[2017-10-03] MEDS: Aspirin Enteric Coated 81 MG Tablet PO SCH (09:42)
[2017-10-03] MEDS: predniSONE 20 MG TABLET PO SCH (09:42)
[2017-10-03] MEDS: Cholecalciferol (D-3) 1,000 UNIT TABLET PO SCH (09:42)
[2017-10-03] MEDS ORDERED: Cefdinir 300 MG CAPSULE PO SCH ×2 (11:45→12:00)
--- NOTE | 2017-10-03 12:08 | Internal Med Progress Note ---
Date of Encounter: 10/03/17 Time of Encounter: 12:07 - Assessment and plan (1) CAP (community acquired pneumonia) Current Visit: Yes Status: Acute Assessment and plan: CXR demonstrated right-sided pneumonia throughout multiple lobes, and emphysematous change CT demonstrated right pleural effusion which prompted thoracentesis on 2017; 30 to 50 mLs aspirated; exudative with culture pending. CTA: - No evidence of pulmonary embolism. - Infiltrate in the deep tendon right lung. This may be due to an infection or aspiration. - Small pleural effusions, right greater than left. Sputum culture, normal respiratory floor per lab with no pending sensitivities pleural fluid exudate is and prelim negative for bacteria viral panel negative Completed 5 days of steroids and Azithromycin Completed 5 days of Rocephin Switch to po OMnicef today for 7 more days Scheduled and PRN neb treatments Continue O2 titrated as needed to maintain saturations above 88%; Qualifiers: Laterality: right Lung location: lower lobe of lung Qualified Code(s): J18.1 - Lobar pneumonia, unspecified organism (2) COPD with exacerbation Current Visit: Yes Status: Acute Assessment and plan: As above (3) Sepsis Current Visit: Yes Status: Resolved Assessment and plan: Resolved Due to right lung pneumonia & COPD exacerbation. Hypoxic & Hypercapneic respiratory failure Associated hypoxia, hypercapnia, and red "bloody" sputum, leukocytosis - VBG on initial workup: pH 7.32, PCO2 54, PO2 40, HCO3 28 Now stable, continue care as in Pneumonia Qualifiers: Sepsis type: sepsis due to unspecified organism Qualified Code(s): A41.9 - Sepsis, unspecified organism (4) Hypertension Current Visit: Yes Status: Chronic Assessment and plan: Better controlled today Continue current meds Qualifiers: Hypertension type: essential hypertension Qualified Code(s): I10 - Essential (primary) hypertension (5) DVT prophylaxis Current Visit: Yes Status: Acute Assessment and plan: On Warfarin, INR is sub-therapeutic (6) Hyponatremia Current Visit: Yes Status: Acute Assessment and plan: Stable. Monitor (7) Atrial fibrillation with RVR Current Visit: Yes Status: Resolved Assessment and plan: New with no known history; persists with RVR rate today of 160s. Continue Lopressor 25mg PO BID Continue on Warfarin PTD Changed Cardizem Cd, increased to 240 mg daily today, continue to monitor ECHO noted for mild LVDD, preserved EF cardio eval noted (8) CHF (congestive heart failure) Current Visit: Yes Status: Acute Assessment and plan: continue lasix. Qualifiers: Heart failure type: unspecified Heart failure chronicity: acute on chronic Qualified Code(s): I50.9 - Heart failure, unspecified - Time Spent With Patient Total time spent is greater than 50% in coordination of care (as documented) at patient's floor/unit and/or counseling patient: - Subjective Interval history: Seen and evaluated Sitting up in chair HR is now controlled, BP WNL She is requring 4L O2 by [place], we will qualify for home O2 today - Constitutional Vitals: Temp Pulse Resp BP Pulse Ox 98 F 78 17 162/75 91 10/03/17 06:29 10/03/17 06:29 10/03/17 11:57 10/03/17 06:29 10/03/17 11:57 General appearance: Present: cooperative, A&O X 3, morbidly obese, no acute distress, answers questions appropriately - Head Head exam: Present: atraumatic, normocephalic - Eye Eye exam: Present: PERRL, conjuntiva pink, sclera anicteric Pupils: Present: PERRL - Neck Neck exam general surgery: Present: supple, trachea midline. Absent: lymphadenopathy - Respiratory Respiratory exam: Present: CTAB. Absent: accessory muscle use, rales, rhonchi, wheezes - Cardiovascular Cardiovascular exam: Present: RRR, +S1, +S2. Absent: diastolic murmur, gallop, rubs, systolic murmur - GI/Abdominal GI/Abdominal exam: Present: normal bowel sounds, soft, no peritoneal signs. Absent: distended, tenderness - Extremities Exam Extremities exam: Present: warm, radial pulses palpable and symmetrical. Absent : calf tenderness, cyanotic, pedal edema - Neurological Exam Neurological exam: Present: alert, CN II-XII intact, oriented X3, no focal deficits. Absent: pronater drift, facial droop, speech deficit - Skin Skin exam: Present: dry, intact Internal Medicine: Result - Labs CBC & Chem 7: 10/03/17 07:07 10/03/17 07:07 Labs: Short CBC 10/03/17 Range/Units 07:07 WBC 16.9 H (4.3-11.1) K/mcL Hgb 12.0 (11.5-15.4) g/dL Hct 36.7 (35.3-44.9) % Plt Count 406 H (140-400) K/mcL Neutrophils # 10.7 H (1.6-8.9) K/mcL BMP 10/03/17 07:07 Sodium 135 L Potassium 3.9 Chloride 98 Carbon Dioxide 29 BUN 18 Creatinine 0.76 Glucose 84 Calcium 9.0 - ABG Interpretation ABG results: PT/INR, D-dimer PT 10.5 Seconds (9.4-12.1) 10/03/17 07:07 Consult Discharge Plan - Plan Referrals: Vladimir Cho MD [Primary Care Provider] - 10/06/17 9:45 am Prescriptions: Apixaban [Eliquis] 5 mg PO BID #60 tablet
[2017-10-03] MEDS: Letrozole 2.5 MG TABLET PO SCH (12:10)
--- NOTE | 2017-10-03 12:31 | Discharge Summary ---
- NOTES TO OUTPATIENT PROVIDER Notes to Outpatient Provider: The patient was admitted to the hospital for sepsis, acute hypoxic respiratory failure secondary to bilateral pneumonia, COPD exacerbation, and pulmonary edema. She developed atrial fibrillation with rapid ventricular response inpatient, and is discharged home on 2 more days of antibiotics, Lasix, diltiazem, metoprolol and warfarin. She has an appointment with her primary care physician on 10/06/17, recommend INR check at that time. He is discharged on home oxygen. Her nifedipine and chlorthalidone has been discontinued. Orders not resulted at time of discharge: Pending orders 09/29/17 15:20 Culture,Body Fluid [RM] Routine 10/04/17 04:00 PT/INR [Prothrombin Time INR] [COAG] AM 0400 10/05/17 04:00 PT/INR [Prothrombin Time INR] [COAG] AM 0400 Date of Encounter: 10/03/17 Time of Encounter: 12:29 - Discharge Diagnosis (1) CAP (community acquired pneumonia) Priority: Primary Status: Acute Assessment and Plan: CXR demonstrated right-sided pneumonia throughout multiple lobes, and emphysematous change CT demonstrated right pleural effusion which prompted thoracentesis on 2017; 30 to 50 mLs aspirated; exudative with culture pending. CTA: - No evidence of pulmonary embolism. - Infiltrate in the deep tendon right lung. This may be due to an infection or aspiration. - Small pleural effusions, right greater than left. Sputum culture, normal respiratory ace pleural fluid exudate is and prelim negative for bacteria viral panel negative Completed 5 days of steroids and Azithromycin Completed 5 days of Rocephin Switch to po OMnicef today for 2 more days to complete 7 days of treatment. Continued to require oxygen, discharged on 4 L of continuous oxygen to follow- up with PCP. Qualifiers: Laterality: right Lung location: lower lobe of lung Qualified Code(s): J18.1 - Lobar pneumonia, unspecified organism (2) COPD with exacerbation Priority: Primary Status: Acute Assessment and Plan: She has completed a course of steroid burst. Continue home MDIs. (3) Sepsis Priority: Primary Status: Resolved Assessment and Plan: She presented with sepsis secondary to pneumonia and COPD exacerbation, as well as hypoxic and hypercapnic respiratory failure. Blood culture, sputum culture as well as pleural fluid culture was negative. She was treated with azithromycin for 5 days, and Rocephin for 5 days. She is discharged home on 2 more days of Omnicef twice a day. Qualifiers: Sepsis type: sepsis due to unspecified organism Qualified Code(s): A41.9 - Sepsis, unspecified organism (4) Hypertension Priority: Secondary Status: Chronic Assessment and Plan: Controlled on metoprolol, diltiazem, and Lasix. Patient's home medications of nifedipine and chlorthalidone have been discontinued. Qualifiers: Hypertension type: essential hypertension Qualified Code(s): I10 - Essential (primary) hypertension (5) DVT prophylaxis Priority: Secondary Status: Resolved Assessment and Plan: On Warfarin, INR is sub-therapeutic (6) Hyponatremia Priority: Secondary Status: Acute Assessment and Plan: Sodium has been stable. (7) Atrial fibrillation with RVR Priority: Primary Status: Resolved Assessment and Plan: New with no known history; ECHO noted for mild LVDD, preserved EF Cardiology was consulted in agreement with current management with: Diltiazem extended release to 240 mg daily , Lopressor twice a day, and warfarin. Follow-up with primary care physician on 10/06/17 for INR check. Patient educated on need for compliance with her medications. (8) CHF (congestive heart failure) Priority: Primary Status: Acute Assessment and Plan: continue lasix at home Educated on fluid restriction. Qualifiers: Heart failure type: unspecified Heart failure chronicity: acute on chronic Qualified Code(s): I50.9 - Heart failure, unspecified Hospital course: Ms. Sifuentes is a 72 year old female with past medical history of breast cancer, hypertension, COPD. She was admitted and managed for atrial fibrillation with rapid ventricular response, sepsis, pneumonia, acute hypoxic and hypercapnic respiratory failure, and diastolic CHF exacerbation. She has made remarkable improvement. She seen and evaluated at the bedside this morning. She has no new complaints. She qualified for home oxygen, but has decided not to wait for the social insurance analyst. She has decided to be out of pocket for her oxygen. She is clinically and hemodynamically stable to be discharged home to complete oral antibiotics, and continue her current cardiac meds which include diltiazem, warfarin, metoprolol, and Lasix. She verbalized understanding of plan of care. Follow-up with PCP on 10/06/17. Rest of details is as documented in each diagnosis. Discharge discussed with: patient, family, nurse - Time Spent with Patient Total time spent providing and/or coordinating discharge services: Greater than 30 minutes - Discharge Medications Prescriptions: Cefdinir [Omnicef] 300 mg PO BID #4 capsule Diltiazem CD (24hr) [Cardizem CD] 240 mg PO DAILY #30 cap.er.24h Furosemide [Lasix] 40 mg PO DAILY #30 tablet Metoprolol [Lopressor] 25 mg PO BID #60 tablet Warfarin [Coumadin] 3 mg PO DAILY@1800 #8 tablet Home Medications: Atorvastatin [Lipitor] 20 mg PO HS 02/15/15 [History] Cyclobenzaprine [Flexeril] 10 mg PO DAILY 02/15/15 [History] Losartan [Cozaar] 25 mg PO DAILY 02/15/15 [History] Multivitamin [Multi-Day Vitamins] 1 each PO DAILY 02/15/15 [History] Potassium Chloride 20 meq PO AD 02/15/15 [History] Roflumilast [Daliresp] 500 mcg PO DAILY 02/15/15 [History] Ropinirole HCl [Requip] 4 mg PO HS 02/15/15 [History] TraZODone 200 mg PO HS 02/15/15 [History] OxyCODONE/APAP 10/325 [Percocet 10/325] 1 each PO Q6HR PRN #39 tablet 03/13/15 [ Rx] Vitamin E (Dl,Tocopheryl Acet) [Vitamin E] 400 unit PO BID #100 cap 08/20/15 [Rx ] Calcium Carbonate/Vitamin D3 [Calcium 600 + Vit D Tablet] 1 each PO BID #180 tablet 08/24/15 [Rx] Aspirin Enteric Coated [Aspirin EC] 81 mg PO DAILY 02/08/16 [History] Magnesium Oxide [Mgo] 1 tab PO DAILY #30 tablet 03/21/16 [Rx] Fluticasone/Salmeterol [Advair 250-50 Diskus] 1 each IH AD PRN 09/19/16 [History ] Letrozole [Femara] 2.5 mg PO DAILY #90 tablet 03/19/17 [Rx] Gabapentin [Neurontin] 1 tab PO HS 09/27/17 [History] Albuterol Neb [Proventil Neb] 2.5 mg IH Q2H PRN inhsol 10/03/17 [Rx] Cefdinir [Omnicef] 300 mg PO BID #4 capsule 10/03/17 [Rx] Cholecalciferol (D-3) [Vitamin D] 1,000 unit PO DAILY tablet 10/03/17 [Rx] Diltiazem CD (24hr) [Cardizem CD] 240 mg PO DAILY #30 cap.er.24h 10/03/17 [Rx] Furosemide [Lasix] 40 mg PO DAILY #30 tablet 10/03/17 [Rx] Metoprolol [Lopressor] 25 mg PO BID #60 tablet 10/03/17 [Rx] Warfarin [Coumadin] 3 mg PO DAILY@1800 #8 tablet 10/03/17 [Rx] Allergies/Adverse Reactions: 3 Allergy/AdvReac Type Severity Reaction Status Date / Time levofloxacin [From Levaquin] AdvReac Itching Verified 09/27/17 12:05 Sulfa (Sulfonamide AdvReac Nausea Verified 09/27/17 12:05 Antibiotics) Date of admission: 09/27/17 15:04 Primary care physician: Vladimir Cho MD Consults: 10/01/17 19:41 Consult to Cardiology [CONS] Routine Comment: Consulting Provider: [facility] Reason for Consult: NEw onset Afib, uncontrolled with cardizem and metoprolol , blood pressure low normal, Call Completed: No Discharging clinician: Ming Ott Anticipated date of discharge: 10/03/17 - Constitutional Vitals: Temp Pulse Resp BP Pulse Ox 98 F 78 17 162/75 91 10/03/17 06:29 10/03/17 06:29 10/03/17 11:57 10/03/17 06:29 10/03/17 11:57 General appearance: Present: cooperative, A&O X 3, morbidly obese, no acute distress, answers questions appropriately - Head Head exam: Present: atraumatic, normocephalic - Eye Eye exam: Present: PERRL, conjuntiva pink, sclera anicteric Pupils: Present: PERRL - Neck Neck exam general surgery: Present: supple, trachea midline. Absent: lymphadenopathy - Respiratory Respiratory exam: Present: CTAB. Absent: accessory muscle use, rales, rhonchi, wheezes - Cardiovascular Cardiovascular exam: Present: RRR, +S1, +S2. Absent: diastolic murmur, gallop, rubs, systolic murmur - GI/Abdominal GI/Abdominal exam: Present: normal bowel sounds, soft, no peritoneal signs. Absent: distended, tenderness - Extremities Exam Extremities exam: Present: warm, radial pulses palpable and symmetrical. Absent : calf tenderness, cyanotic, pedal edema - Neurological Exam Neurological exam: Present: alert, CN II-XII intact, oriented X3, no focal deficits. Absent: pronater drift, facial droop, speech deficit - Skin Skin exam: Present: dry, intact - Patient Status Disposition: Home, Self-Care Condition: Good Functional capacity at discharge: independent ambulation Overall status at discharge: patient is progressing back to baseline - Discharge Instructions Follow Up With: Vladimir Cho MD [Primary Care Provider] - 10/06/17 9:45 am - Diet and Activity Activity: wear oxygen at all times Diet: low fat, low cholesterol, low salt diet
[2017-10-04] MEDS ORDERED: Furosemide 40 MG TABLET PO SCH (09:00)
== END 2017-10-03 13:45 | disposition home or self-care (01) | DRG 871 ==
LOC: EMEROO 11:31 → 2NENU 11:31 → SUATTDRO 15:04 → 2NENU 16:13
PROVIDERS: ADMIT Hospitalist; ATTEND Internal Medicine

== ENCOUNTER 2018-08-10 17:50 | Inpatient (IN) ==
[2018-08-10] MEDS ORDERED: Ipratropium/Albuterol Neb 3 ML IH ONE ×2 (18:47→19:11)
--- NOTE | 2018-08-10 18:52 | Emergency Department Note ---
Disposition Clinical Impression: Acute exacerbation of chronic obstructive airways disease Disposition: Admitted As Inpatient Condition: Good Time of Disposition: 21:05 SOB HPI - General Chief Complaint: ED Shortness of Breath/Dyspnea Stated Complaint: KALEY Time Seen by Provider: 08/10/18 18:44 Source: patient, EMS Limitations: no limitations Nursing Notes Reviewed: Yes Vital Signs Reviewed: Yes - History of Present Illness 73yo female presents from home with family bedside for evaluation of shortness of breath. Onset 3 days ago and progressively worse. No notable increase in LE swelling. Marginally improved with home breathing treatments. Similar to her as prior pneumonia. PMH: HTN, HLD, copd noncompliant on continuous home O2, atrial fibrillation on metoprolol and coumadin. ROS: Pos: as above Neg: fever, chills, nausea, vomiting, cough, abdominal pain, diarrhea, constipation - Related Data Home Medications Medication Instructions Recorded Confirmed RX: Atorvastatin [Lipitor] 20 mg PO HS 02/15/15 08/10/18 RX: Losartan [Cozaar] 25 mg PO BID 02/15/15 08/10/18 RX: Multivitamin [Multi-Day 1 each PO DAILY 02/15/15 08/10/18 Vitamins] RX: Potassium Chloride 20 meq PO AD 02/15/15 08/10/18 RX: Roflumilast [Daliresp] 500 mcg PO DAILY 02/15/15 08/10/18 RX: Ropinirole HCl [Requip] 4 mg PO HS 02/15/15 08/10/18 RX: TraZODone 200 mg PO HS 02/15/15 08/10/18 RX: Fluticasone/Salmeterol [Advair 1 each IH AD PRN 09/19/16 08/10/18 250-50 Diskus] Metoprolol [Lopressor] 25 mg PO BID 03/17/18 08/10/18 RX: Gabapentin [Neurontin] 100 mg PO DAILY 08/10/18 08/10/18 RX: OxyCODONE/APAP 10/325 1 each PO Q8HR PRN 08/10/18 08/10/18 [Percocet 10/325] Previous Rx's Medication Instructions Recorded RX: Vitamin E (Dl,Tocopheryl Acet) 400 unit PO BID #100 cap 08/20/15 [Vitamin E] RX: Calcium Carbonate/Vitamin D3 1 each PO BID #180 tablet 08/24/15 [Calcium 600 + Vit D Tablet] RX: Albuterol Neb [Proventil Neb] 2.5 mg IH Q2H PRN inhsol 10/03/17 RX: Diltiazem CD (24hr) [Cardizem 240 mg PO DAILY #30 cap.er.24h 10/03/17 CD] RX: Furosemide [Lasix] 40 mg PO DAILY #30 tablet 10/03/17 RX: Warfarin [Coumadin] 3 mg PO DAILY@1800 #8 tablet 10/03/17 RX: Letrozole [Femara] 2.5 mg PO DAILY #90 tablet 04/16/18 Allergies Allergy/AdvReac Type Severity Reaction Status Date / Time levofloxacin [From Levaquin] AdvReac Itching Verified 03/17/18 10:55 Sulfa (Sulfonamide AdvReac Nausea Verified 03/17/18 10:55 Antibiotics) Varenicline [From Chantix] AdvReac Nausea Verified 03/17/18 10:55 All systems ED: reviewed and negative except as stated. Review of Systems: As Per HPI Past Medical History - Past Medical History Medical history: Reports: cancer, COPD, hyperlipidemia, hypertension, other Surgical history: Reports: appendectomy, cataract, hip replacement, hysterectomy Psychiatric history: Reports: no psych history - Social History Smoking Status: Former smoker Smokeless Tobacco Status: No Alcohol use: Reports: rarely Drug use: Reports: none Physical Exam Vital Signs Reviewed General: Patient is alert, oriented, and in no acute distress. Head: atraumatic, normocephalic Eye: normal appearance, PERRL, EOMI, no scleral icterus, no conjunctival injection ENT: mucous membranes moist, normal external ear exam Neck: normal inspection, trachea midline, full ROM Chest: normal inspection, symmetric chest rise Respiratory: Good respiratory effort. Prolonged exophoria phase. Bilateral breath sounds equally diminished without wheezes, crackles, rhonchi. Cardiovascular: Regular rate and rhythm. No clicks, rubs, gallops, or murmors. Normal heart sounds. Bilateral radial pulses 2/4 equal. Trace pedal edema bilaterally. Abdomen: Bowel sounds present normoactive. Abdomen is soft, nondistended, and nontender. No guarding or rebound. Musculoskeletal: Spontaneously moving all extremities. Skin: warm, dry, intact. Neuro: GCS 15. No focal neurologic deficits observed. Psych: Patient's affect is appropriate for situation. - General Limitations: no limitations General appearance: alert, in no apparent distress Course Course Narrative: Patient has conversational dyspnea. She is oxygenating well. Lungs are quiet. We will provide nebulizers. Concern for pneumonia versus COPD versus viral. EKG dated 08/10/2018 at 18:30 interpreted as sinus tachycardia with a rate of 102. ID [id number], QRS 136, QTC 47. Normal axis. Nonspecific ST-T changes. Compared to previous dated 04/2018 showing no acute ischemic changes or c omparison. Chest x-ray unremarkable. Suspicious for possible pulmonary edema; patient does not clinically appear fluid overloaded. BNP is not markedly elevated however, this is not the most reliable finding given the patient's obesity. EKG shows no acute ischemic changes. Troponin within normal limits Serum hematology is unremarkable. Circulation is unremarkable. INR is therapeutic. The patient does have home oxygen and home breathing treatments, she has a history of noncompliance. I discussed this with family at bedside. Suspect patient, at discharge home, would continue to be noncompliant. She is, however, agreeable to admission. I discussed the above with the admitting hospitalist, Dr. Meredith, who agrees to accept the patient for continued pulmonary evaluation monitoring her acute exacerbation of COPD. Chest X-Ray 08/10/18 18:47 IMPRESSION: Findings likely represent mild pulmonary edema. D/ / Rene Presley MD / Rene Presley MD Interpreting Provider: Rene Presley MD Vital Signs Temperature 97.7 F 08/10/18 18:23 Pulse Rate 94 08/10/18 18:23 Respiratory Rate 20 08/10/18 18:23 Blood Pressure 135/59 08/10/18 18:23 O2 Sat by Pulse Oximetry 93 08/10/18 18:23 Temperature 97.7 F 08/10/18 18:32 Pulse Rate 97 08/10/18 18:37 Respiratory Rate 18 08/10/18 19:58 Blood Pressure 144/70 08/10/18 18:37 O2 Sat by Pulse Oximetry 96 08/10/18 19:58 Oxygen Delivery Oxygen Delivery Nasal Cannula Shortness of Breath/Dyspnea - Lab Data Result diagrams: 08/11/18 05:35 08/11/18 05:35 Lab Results 08/10/18 08/10/18 08/10/18 Range/Units 19:27 19:27 19:27 WBC 9.4 (4.3-11.1) K/mcL RBC 3.89 (3.82-4.97) M/mcL Hgb 11.7 (11.5-15.4) g/dL Hct 36.9 (35.3-44.9) % MCV 94.9 (83.0-100.0) fL MCH 30.1 (28.0-33.3) pg MCHC 31.7 (31.6-35.5) g/dL RDW 15.1 H (11.5-14.5) % Plt Count 348 (140-400) K/mcL MPV 8.6 L (9.4-12.4) fL Immature Gran % 0.2 (0-4) % Seg Neutrophils % 72.8 % Lymphocytes % 13.7 % Monocytes % 9.5 % Eosinophils % 3.3 % Basophils % 0.5 % Neutrophils # 6.9 (1.6-8.9) K/mcL Lymphocytes # 1.3 (0.6-4.6) K/mcL Monocytes # 0.9 (0.0-1.3) K/mcL Eosinophils # 0.3 (0.0-0.6) K/mcL Basophils # 0.1 (0.0-0.2) K/mcL PT (9.4-12.1) Seconds INR Sodium 134 L (136-145) mEq/L Potassium 3.8 (3.5-5.1) mEq/L Chloride 97 L (98-107) mEq/L Carbon Dioxide 26 (23-29) mEq/L BUN 11 (8-23) mg/dL Creatinine 0.93 (0.60-1.20) mg/dL Est GFR ( Amer) > 60 (> 60) Est GFR (Non-Af Amer) 59 L (> 60) BUN/Creatinine Ratio 12 (6-26) Glucose 92 (70-105) mg/dL Calculated Osmolality 277 L (280-300) Lactic Acid 1.3 (0.5-2.2) mmol/L Calcium 9.1 (8.6-10.3) mg/dL Troponin I < 0.03 (< 0.04) ng/mL B-Natriuretic Peptide (Less than 100) pg/mL 08/10/18 08/10/18 Range/Units 19:27 19:27 WBC (4.3-11.1) K/mcL RBC (3.82-4.97) M/mcL Hgb (11.5-15.4) g/dL Hct (35.3-44.9) % MCV (83.0-100.0) fL MCH (28.0-33.3) pg MCHC (31.6-35.5) g/dL RDW (11.5-14.5) % Plt Count (140-400) K/mcL MPV (9.4-12.4) fL Immature Gran % (0-4) % Seg Neutrophils % % Lymphocytes % % Monocytes % % Eosinophils % % Basophils % % Neutrophils # (1.6-8.9) K/mcL Lymphocytes # (0.6-4.6) K/mcL Monocytes # (0.0-1.3) K/mcL Eosinophils # (0.0-0.6) K/mcL Basophils # (0.0-0.2) K/mcL PT 29.6 H (9.4-12.1) Seconds INR 2.6 Sodium (136-145) mEq/L Potassium (3.5-5.1) mEq/L Chloride (98-107) mEq/L Carbon Dioxide (23-29) mEq/L BUN (8-23) mg/dL Creatinine (0.60-1.20) mg/dL Est GFR ( Amer) (> 60) Est GFR (Non-Af Amer) (> 60) BUN/Creatinine Ratio (6-26) Glucose (70-105) mg/dL Calculated Osmolality (280-300) Lactic Acid (0.5-2.2) mmol/L Calcium (8.6-10.3) mg/dL Troponin I (< 0.04) ng/mL B-Natriuretic Peptide 211 H (Less than 100) pg/mL Attestation Statement - Attestation Attestation: Resident Attestation: I examined this patient and my medical decision making was reviewed with the Resident Physician. I agree with the documented findings, disposition and treatment plan as described except to the extent set forth below. We independently had [id number] contact with the patient. Patient with a history of COPD presented to the emergency for worsening shortness of breath and cough. Patient not maximized on home therapies. Patient in mild respiratory distress with associated bilateral wheezing, regular rhythm, abdomen soft nontender to palpation. Patient did improve his overall treatments. Patient not improved enough to go home. Patient will be admitted for further management.
[2018-08-10] MEDS ORDERED: methylPREDNISolone 125 MG/2 ML VIAL IVP ONE (19:11)
[2018-08-10] MEDS ORDERED: Azithromycin 250 MG TABLET PO ONE (19:11)
[2018-08-10 19:51] LABS: INR 2.6; Prothrombin Time 29.6 Seconds (9.4-12.1)
[2018-08-10 19:53] LABS: Basophils # 0.1 K/mcL (0.0-0.2); Basophils % 0.5 %; Eosinophils # 0.3 K/mcL (0.0-0.6); Eosinophils % 3.3 %; Hematocrit 36.9 % (35.3-44.9); Hemoglobin 11.7 g/dL (11.5-15.4); Immature Granulocytes % 0.2 % (0-4); Lymphocytes # 1.3 K/mcL (0.6-4.6); Lymphocytes % 13.7 %; Mean Corpuscular HGB Conc 31.7 g/dL (31.6-35.5); Mean Corpuscular Hemoglobin 30.1 pg (28.0-33.3); Mean Corpuscular Volume 94.9 fL (83.0-100.0); Mean Platelet Volume 8.6 fL (9.4-12.4); Monocytes # 0.9 K/mcL (0.0-1.3); Monocytes % 9.5 %; Neutrophils # 6.9 K/mcL (1.6-8.9); Platelet Count 348 K/mcL (140-400); Red Blood Count 3.89 M/mcL (3.82-4.97); Red Cell Distribution Width 15.1 % (11.5-14.5); Segmented Neutrophils % 72.8 %
[2018-08-10 20:16] LABS: BUN/Creatinine Ratio 12 (6-26); Blood Urea Nitrogen 11 mg/dL (8-23); Calcium 9.1 mg/dL (8.6-10.3); Carbon Dioxide 26 mEq/L (23-29); Chloride 97 mEq/L (98-107); Glucose 92 mg/dL (70-105); Osmolality,Calculated 277 (280-300); Potassium 3.8 mEq/L (3.5-5.1); Sodium 134 mEq/L (136-145); Troponin I < 0.03 ng/mL (< 0.04); eGFR For Non-African Americans 59 (> 60)
[2018-08-10] MEDS ORDERED: Acetaminophen 325 MG TABLET PO PRN (21:49)
[2018-08-10] MEDS ORDERED: Ondansetron 4 MG/2 ML VIAL IVP PRN (21:49)
[2018-08-10] MEDS ORDERED: Albuterol 2.5 MG/3 ML NEBULIZER IH PRN (21:49)
[2018-08-10] MEDS ORDERED: Naloxone 0.4 MG/ML INJ IVP PRN (21:49)
[2018-08-10] MEDS ORDERED: 0.9 % Sodium Chloride w KCl 20 MEQ/1,000 ML MLS IVC SCH (22:00)
--- NOTE | 2018-08-10 22:14 | Internal Med History&Physical ---
Date of Encounter: 08/10/18 Time of Encounter: 21:50 Internal Medicine - H&P: HPI Chief complaint: SOB; Wheeze Admitted From: Emergency Dept Plans for Post Hospital Care: Home History of present illness: Ms. Sifuentes is a 73 year old female who presents with a three-day history of wheezing, dyspnea, dry cough, subjective fevers, chills, nausea, and some vomiting. Because of worsening symptoms and increasing oxygen requirement at home, she came to ER. She was diagnosed with acute COPD exacerbation and was treated with some DuoNeb aerosols, IV steroids, and Zithromax. She was then admitted to hospitalist service. Upon my assessment of the patient in the ER, she feels better, but she is still dyspneic and mildly tachypneic. She states that the aerosols did help her quite a bit. She does use oxygen at home on a PRN basis. She also uses aerosol treatments at home as neededroughly once or twice per week. Over the last 3 days, however, she has been relying on them several times per day and has been wearing oxygen 24 hours a day with little relief. She denies any chest pain. She has a nonproductive cough. She has been febrile subjectively and has had some chills. She has had no known ill contacts. However, she lives with her son who has been exposed to several ill contacts. She is a former smoker and has chronic hypoxemic respiratory failure from COPD. Past Med Surg Social Fam HX - Past Medical History Attestation: Yes The following information was validated with the patient. Source: patient, old records reviewed Medical history: atrial fibrillation (paroxysmal), cancer, COPD, hyperlipidemia, hypertension Additional medical history: breast cancer left breast. abnormal EKG. HTN. COPD. Hyperlipidemia Psychiatric history: no psych history - Past Surgical History Surgical History: appendectomy, cataract, hip replacement, hysterectomy Additional surgical history: bilateral knee scope. lipomas on back. US guided Lt breast biopsy - Social History Smoking Status: Former smoker Smokeless Tobacco Status: No Alcohol use: rarely Drug use: none Current living situation: Home, With Family Activity Level: Independent ambulation Recent Out of Country Travel Within the Last 8 Weeks: No - Family History Mother History Unknown: Yes Living Status: Father Living Status: Hx Family Cardiac Disorders: No Hx Family Respiratory Disorders: Yes Internal Medicine - H&P: Meds Atorvastatin [Lipitor] 20 mg PO HS 02/15/15 [History] Losartan [Cozaar] 25 mg PO BID 02/15/15 [History] Multivitamin [Multi-Day Vitamins] 1 each PO DAILY 02/15/15 [History] Potassium Chloride 20 meq PO AD 02/15/15 [History] Roflumilast [Daliresp] 500 mcg PO DAILY 02/15/15 [History] Ropinirole HCl [Requip] 4 mg PO HS 02/15/15 [History] TraZODone 200 mg PO HS 02/15/15 [History] Vitamin E (Dl,Tocopheryl Acet) [Vitamin E] 400 unit PO BID #100 cap 08/20/15 [Rx] Calcium Carbonate/Vitamin D3 [Calcium 600 + Vit D Tablet] 1 each PO BID #180 tablet 08/24/15 [Rx] Fluticasone/Salmeterol [Advair 250-50 Diskus] 1 each IH AD PRN 09/19/16 [History] Albuterol Neb [Proventil Neb] 2.5 mg IH Q2H PRN inhsol 10/03/17 [Rx] Diltiazem CD (24hr) [Cardizem CD] 240 mg PO DAILY #30 cap.er.24h 10/03/17 [Rx] Furosemide [Lasix] 40 mg PO DAILY #30 tablet 10/03/17 [Rx] Warfarin [Coumadin] 3 mg PO DAILY@1800 #8 tablet 10/03/17 [Rx] Metoprolol [Lopressor] 25 mg PO BID 03/17/18 [History] Letrozole [Femara] 2.5 mg PO DAILY #90 tablet 04/16/18 [Rx] Gabapentin [Neurontin] 100 mg PO DAILY 08/10/18 [History] OxyCODONE/APAP 10/325 [Percocet 10/325] 1 each PO Q8HR PRN 08/10/18 [History] Allergy/AdvReac Type Severity Reaction Status Date / Time levofloxacin [From Levaquin] AdvReac Itching Verified 03/17/18 10:55 Sulfa (Sulfonamide AdvReac Nausea Verified 03/17/18 10:55 Antibiotics) Varenicline [From Chantix] AdvReac Nausea Verified 03/17/18 10:55 - Constitutional Constitutional: chills, fatigue, fever(s), no night sweats - EENT Eyes: no blurry vision, no change in vision Ears: no ear pain, no tinnitus Nose, mouth and throat: nasal congestion, no sinus pressure, no sore throat - Cardiovascular Cardiovascular ROS IM: dyspnea, dyspnea on exertion, no chest pain, no edema, no orthopnea, no paroxysmal nocturnal dyspnea - Respiratory Respiratory: cough, dyspnea, wheezing, chest congestion, change in phlegm color, no hemoptysis, no excessive phlegm production, no pain with cough - Gastrointestinal Gastrointestinal: nausea, no abdominal pain, no diarrhea, no hematemesis, no hematochezia, no melena, no vomiting - Genitourinary Genitourinary: no dysuria, no flank pain, no hematuria - Musculoskeletal Musculoskeletal ROS IM: arthralgias, back pain, muscle cramps, no myalgias - Integumentary Integumentary IM: no rash, no jaundice - Neurological Neurological ROS: no disequilibrium, no dizziness, no focal weakness, no frequent falls, no headache(s) - Psychiatric Psychiatric: no anxiety, no depression - Allergic/Immunologic Allergic/Immunologic: no GI upset with certain foods - Constitutional Vitals: Temp Pulse Resp BP Pulse Ox 97.7 F 97 18 144/70 96 08/10/18 18:32 08/10/18 18:37 08/10/18 19:58 08/10/18 18:37 08/10/18 19:58 General appearance: Present: cooperative, mild distress, A&O X 3, pleasant, answers questions appropriately Exam: mild respiratory distress and tachypnea - Head Head exam: Present: atraumatic, normal inspection - Eye Eye exam: Present: EOMI, PERRL. Absent: scleral icterus Pupils: Present: normal accommodation - ENT ENT exam: Present: mucous membranes dry, normal exam, normal oropharynx - Neck Neck exam general surgery: Present: full ROM, supple, trachea midline. Absent: tenderness, nuchal rigidity, thyromegaly - Respiratory Respiratory exam: Present: accessory muscle use, decreased breath sounds, prolonged expiratory phase, respiratory distress (mild to moderate), wheezes, tachypnea. Absent: chest wall tenderness, rales, rhonchi, stridor - Cardiovascular Cardiovascular exam: Present: distant heart sounds, RRR, +S1, +S2. Absent: diastolic murmur, systolic murmur - GI/Abdominal GI/Abdominal exam: Present: normal bowel sounds, soft. Absent: guarding, hepatomegaly, mass, rebound, splenomegaly, tenderness - Extremities Exam Extremities exam: Present: full ROM, normal capillary refill, warm, radial pulses palpable and symmetrical. Absent: calf tenderness, pedal edema, tenderness - Back Exam Back exam: Present: normal inspection. Absent: CVA tenderness (L), CVA tenderness (R) - Neurological Exam Neurological exam: Present: alert, CN II-XII intact, oriented X3, no focal deficits, strengths equal and symetr throughout - Psychiatric Psychiatric exam: Present: normal affect, normal mood - Skin Skin exam: Present: dry, intact, warm Internal Med - H&P Results - Labs CBC & Chem 7: 08/10/18 19:27 08/10/18 19:27 Labs: Short CBC 08/10/18 Range/Units 19:27 WBC 9.4 (4.3-11.1) K/mcL Hgb 11.7 (11.5-15.4) g/dL Hct 36.9 (35.3-44.9) % Plt Count 348 (140-400) K/mcL Neutrophils # 6.9 (1.6-8.9) K/mcL BMP 08/10/18 19:27 Sodium 134 L Potassium 3.8 Chloride 97 L Carbon Dioxide 26 BUN 11 Creatinine 0.93 Glucose 92 Calcium 9.1 Cardiac Enzymes 08/10/18 Range/Units 19:27 Troponin I < 0.03 (< 0.04) ng/mL - EKG Data -: EKG Interpreted by Myself - EKG Data Prior EKG available for review: no EKG comments: 08/10/18 22:20 Sinus rhtyhm w RBBB - Impressions ITS Impressions Chest X-Ray 08/10/18 18:47 IMPRESSION: Findings likely represent mild pulmonary edema. D/ / Rene Presley MD / Rene Presley MD Interpreting Provider: Rene Presley MD - Diagnostic Studies Chest x-ray Status: image reviewed by me (appers to have insterstitial pattern; do not agree with pulmonary edema per radiology) - Assessment and Plan (1) Acute exacerbation of chronic obstructive airways disease Current Visit: Yes Status: Acute Assessment and plan: 1. Will treat with aggressive aerosols and steroids as she is not moving much air on auscultation. 2. Monitor closely as she may need BiPap; however, she feels better subjectively. 3. Oxygen support as needed. 4. Monitor on telemetry. 5. Will order Flu test and sputum culture. 6. Will treat with Rocephin and Zithromax as well given infectious symptoms. (2) PAF (paroxysmal atrial fibrillation) Current Visit: Yes Status: Chronic Assessment and plan: 1. Currently in NSR; monitor on telemetry. 2. Continue home meds as appropriate. 3. Coumadin dosing per pharmacy. (3) Hypertension Current Visit: Yes Status: Chronic Assessment and plan: 1. Continue home meds as appropriate. 2. Monitor BP and adjust meds as necessary. Qualifiers: Hypertension type: essential hypertension Qualified Code(s): I10 - Essential (primary) hypertension (4) DVT prophylaxis Current Visit: Yes Status: Acute Assessment and plan: 1. Continue Coumadin -- dosing per pharmacy.
[2018-08-10] MEDS ORDERED: *HR* Warfarin 3 MG TABLET PO ONE (23:45)
[2018-08-10] MEDS: *HR* OxyCODONE/APAP 10/325 TABLET PO PRN (23:53)
[2018-08-10] MEDS: cefTRIAXone 2,000 MG in Water for inj. (sterile) 20 ML 20 ML IVP SCH (23:54)
[2018-08-11] MEDS ORDERED: methylPREDNISolone 125 MG/2 ML VIAL IVP SCH
[2018-08-11] MEDS: Ipratropium/Albuterol Neb 3 ML IH SCH ×7 (03:55→23:51)
[2018-08-11] MEDS: methylPREDNISolone 125 MG/2 ML VIAL IVP SCH ×3 (04:17→20:00)
[2018-08-11 06:02] LABS: Basophils % 0.2 %; Eosinophils % 0.2 %; Hematocrit 35.5 % (35.3-44.9); Hemoglobin 11.5 g/dL (11.5-15.4); Immature Granulocytes % 0.4 % (0-4); Lymphocytes # 0.3 K/mcL (0.6-4.6); Lymphocytes % 5.3 %; Mean Corpuscular HGB Conc 32.4 g/dL (31.6-35.5); Mean Corpuscular Hemoglobin 30.6 pg (28.0-33.3); Mean Corpuscular Volume 94.4 fL (83.0-100.0); Mean Platelet Volume 8.6 fL (9.4-12.4); Monocytes # 0.1 K/mcL (0.0-1.3); Neutrophils # 4.5 K/mcL (1.6-8.9); Platelet Count 303 K/mcL (140-400); Red Blood Count 3.76 M/mcL (3.82-4.97); Red Cell Distribution Width 14.9 % (11.5-14.5); Segmented Neutrophils % 92.9 %
[2018-08-11 06:05] LABS: INR 2.4; Prothrombin Time 27.2 Seconds (9.4-12.1)
[2018-08-11 06:17] LABS: Alanine Aminotransferase 13 Units/L (7-52); Albumin 3.4 g/dL (3.5-5.7); Albumin/Globulin Ratio 1.3 (1.1-2.2); Alkaline Phosphatase 81 Units/L (34-104); Aspartate Amino Transferase 14 Units/L (13-39); BUN/Creatinine Ratio 14 (6-26); Bilirubin,Total 0.4 mg/dL (0.3-1.0); Blood Urea Nitrogen 11 mg/dL (8-23); Calcium 8.8 mg/dL (8.6-10.3); Carbon Dioxide 26 mEq/L (23-29); Chloride 99 mEq/L (98-107); Globulin 2.6 g/dL (2.4-3.5); Glucose 185 mg/dL (70-105); Magnesium 1.7 mg/dL (1.6-2.6); Osmolality,Calculated 278 (280-300); Sodium 132 mEq/L (136-145); eGFR For Non-African Americans > 60 (> 60)
[2018-08-11] MEDS: *HR* OxyCODONE/APAP 10/325 TABLET PO PRN ×2 (08:35→19:59)
[2018-08-11] MEDS: Multivit/Ca/Min/Fe/FA 1 TAB TABLET PO SCH (08:43)
[2018-08-11] MEDS: Diltiazem CD (24hr) 240 MG CAPSULE PO SCH (08:43)
[2018-08-11] MEDS: Azithromycin 250 MG TABLET PO SCH (08:43)
[2018-08-11] MEDS: DALIRESP 500 MCG PO SCH (08:45)
[2018-08-11] MEDS: CALCIUM/VITAMIN D PO SCH ×2 (08:45→19:57)
[2018-08-11] MEDS ORDERED: Gabapentin 100 MG CAPSULE PO SCH (09:00)
[2018-08-11] MEDS: Letrozole 2.5 MG TABLET PO SCH (11:54)
--- NOTE | 2018-08-11 14:31 | Internal Med Progress Note ---
Hospitalist Progress Note - Encounter Date of Encounter: 08/11/18 Time of Encounter: 11:00 - Subjective Interval History: Ms. Sifuentes is a 73 year old female with known past medical history of hypertension, hyperlipidemia, COPD, and chronic hypoxic respiratory failure on 2 lit home O2 pt presented to ER with a three-day history of wheezing, dyspnea, dry cough, subjective fevers, chills, nausea, and some vomiting. Because of worsening symptoms and increasing oxygen requirement at home, she came to ER. Patient was admitted in the hospital and started on IV steroids on broad- spectrum antibiotic. Patient still complaining about severe shortness of breath and dyspnea on exertion. Currently she is on 4 lit oxygen. - Exam Vitals: Temp Pulse Resp BP Pulse Ox 98.1 F 99 16 137/75 98 08/11/18 11:15 08/11/18 11:15 08/11/18 11:15 08/11/18 11:15 08/11/18 11:15 Exam: Gen: Alert, awake, Oriented to time,place and person, she does need few pauses to finish full sentence Chest: Diminished breath sounds B/L, Moderate to severe wheezing, No crackles, No rales Heart: S1S2+ RRR No murmurs Abd: Soft, NT, BS +, No organomegaly Ext: No edema, pulses are palpable, No calf tenderness Neuro : Benign findings Skin: No rash. - Assessment and Plan (1) Acute and chronic respiratory failure with hypoxia Current Visit: Yes Status: Acute Assessment and Plan: currently on 4 lit O2 uses 2 lit at home due to COPD exacerbation and bronchitis continue below treatments Patient does need to stay in the hospital more than 2 midnights due to her complex medical problems. So we will change her to full admission today. I did review my colleague Dr. Meek's H & P including HPI, PMH, PSH, FH, SH, and ROS no changes noticed (2) Acute bronchitis Current Visit: Yes Status: Acute Assessment and Plan: Mostly bacterial continue empirical antibiotic Rocephin and azithromycin (3) Acute exacerbation of chronic obstructive airways disease Current Visit: Yes Status: Acute Assessment and Plan: Cont high dose IV steorids cont scheduled bronchodilator therapy continue prophylactic antibiotic continue oxygen try to wean her off the oxygen to baseline (4) Hypertension Current Visit: Yes Status: Chronic Assessment and Plan: Resumed all home medications stable blood pressure now (5) PAF (paroxysmal atrial fibrillation) Current Visit: Yes Status: Chronic Assessment and Plan: Currently in normal sinus rhythm rate controlled with metoprolol on Coumadin for anticoagulation (6) DVT prophylaxis Current Visit: Yes Status: Acute Assessment and Plan: Continue Coumadin -- dosing per pharmacy. - Time Spent with Patient Total time spent is greater than 50% in coordination of care (as documented) at patient's floor/unit and/or counseling patient: Internal Medicine: Result - Labs CBC & Chem 7: 08/11/18 05:35 08/11/18 05:35 Labs: Short CBC 08/10/18 08/11/18 Range/Units 19:27 05:35 WBC 9.4 4.9 (4.3-11.1) K/mcL Hgb 11.7 11.5 (11.5-15.4) g/dL Hct 36.9 35.5 (35.3-44.9) % Plt Count 348 303 (140-400) K/mcL Neutrophils # 6.9 4.5 (1.6-8.9) K/mcL BMP 08/10/18 08/11/18 19:27 05:35 Sodium 134 L 132 L Potassium 3.8 4.0 Chloride 97 L 99 Carbon Dioxide 26 26 BUN 11 11 Creatinine 0.93 0.77 Glucose 92 185 H Calcium 9.1 8.8 Cardiac Enzymes 08/10/18 Range/Units 19:27 Troponin I < 0.03 (< 0.04) ng/mL Liver Function 08/11/18 Range/Units 05:35 Total Bilirubin 0.4 (0.3-1.0) mg/dL AST 14 (13-39) Units/L ALT 13 (7-52) Units/L Alkaline Phosphatase 81 (34-104) Units/L Albumin 3.4 L (3.5-5.7) g/dL - ABG Interpretation ABG results: PT/INR, D-dimer PT 27.2 Seconds (9.4-12.1) H 08/11/18 05:35 - Impressions Impressions Chest X-Ray 08/10/18 18:47 IMPRESSION: Findings likely represent mild pulmonary edema. D/ / Rene Presley MD / Rene Presley MD Interpreting Provider: Rene Presley MD Consult Discharge Plan - Plan Additional Instructions: Call [facility] when you get home to have them deliver portable tanks and to set up automatic delivery. Their number is #[phone]. Referrals: Vladimir Cho MD [Primary Care Provider] - 08/19/18 9:45 am (4) Hypertension Qualifiers: Hypertension type: essential hypertension Qualified Code(s): I10 - Essential (primary) hypertension
--- NOTE | 2018-08-11 16:46 | Electrocardiograph Report ---
[address] [place], [place] [address] Test Date: 2018-08-10 Pat Name: Maricruz Sifuentes Department: EXAM6 Room: 3B22 Gender: F [place]: : 1945 Requested By: Teddy Cisse Order Number: [id number] Reading MD: Stephanie Riddle Measurements Intervals [place] Rate: 102 P: 48 IN: 159 QRS: 73 QRSD: 136 T: 59 QT: 385 QTc: 487 Interpretive Statements Sinus tachycardia Atrial premature complexes Right bundle branch block Borderline ST depression Electronically Signed On 08-11-2018 16:45:16 EDT by Stephanie Riddle
[2018-08-11] MEDS ORDERED: Warfarin perPT PO PRN (18:00)
[2018-08-11] MEDS ORDERED: *HR* Warfarin 3 MG TABLET PO ONE (18:00)
[2018-08-11 19:36] LABS: Adenovirus Not Detected (Not Detect); Bordetella Pertussis Not Detected (Not Detect); Chlamydophila pneumoniae Not Detected (Not Detect); Coronavirus 229E Not Detected (Not Detect); Coronavirus HKU1 Not Detected (Not Detect); Coronavirus NL63 Not Detected (Not Detect); Coronavirus OC43 Not Detected (Not Detect); Human Metapneumovirus Not Detected (Not Detect); Human Rhinovirus/Enterovirus Not Detected (Not Detect); Influenza A Subtype 2009 H1 Not Detected (Not Detect); Influenza A Untypeable Not Detected (Not Detect); Influenza B Not Detected (Not Detect); Mycoplasma pneumoniae Not Detected (Not Detect); Parainfluenza Virus 1 Not Detected (Not Detect); Parainfluenza Virus 2 Not Detected (Not Detect); Parainfluenza Virus 3 Not Detected (Not Detect); Parainfluenza Virus 4 Not Detected (Not Detect); Respiratory Syncytial Virus Not Detected (Not Detect)
[2018-08-11] MEDS: rOPINIRole 1 MG TABLET PO SCH (19:56)
[2018-08-11] MEDS: cefTRIAXone 2,000 MG in Water for inj. (sterile) 20 ML 20 ML IVP SCH (20:00)
[2018-08-11] MEDS: Gabapentin 100 MG CAPSULE PO SCH (20:08)
[2018-08-11] MEDS: Budesonide/Formoterol 80/4.5 MDI IH PRN (20:41)
[2018-08-11] MEDS: traZODone 50 MG TABLET PO SCH (23:41)
[2018-08-12] MEDS: Ipratropium/Albuterol Neb 3 ML IH SCH ×6 (03:38→23:50)
[2018-08-12] MEDS: methylPREDNISolone 125 MG/2 ML VIAL IVP SCH (04:10)
[2018-08-12] MEDS: *HR* OxyCODONE/APAP 10/325 TABLET PO PRN ×3 (04:13→23:36)
[2018-08-12 04:22] LABS: Basophils % 0.1 %; Hematocrit 35.6 % (35.3-44.9); Hemoglobin 11.5 g/dL (11.5-15.4); Immature Granulocytes % 0.6 % (0-4); Lymphocytes # 0.5 K/mcL (0.6-4.6); Lymphocytes % 4.1 %; Mean Corpuscular HGB Conc 32.3 g/dL (31.6-35.5); Mean Corpuscular Hemoglobin 30.6 pg (28.0-33.3); Mean Corpuscular Volume 94.7 fL (83.0-100.0); Mean Platelet Volume 8.7 fL (9.4-12.4); Monocytes # 0.3 K/mcL (0.0-1.3); Monocytes % 2.2 %; Neutrophils # 11.8 K/mcL (1.6-8.9); Platelet Count 369 K/mcL (140-400); Red Blood Count 3.76 M/mcL (3.82-4.97)
[2018-08-12 04:31] LABS: INR 2.2
[2018-08-12 04:43] LABS: BUN/Creatinine Ratio 21 (6-26); Blood Urea Nitrogen 13 mg/dL (8-23); Calcium 8.7 mg/dL (8.6-10.3); Carbon Dioxide 25 mEq/L (23-29); Chloride 105 mEq/L (98-107); Glucose 143 mg/dL (70-105); Osmolality,Calculated 287 (280-300); Potassium 3.7 mEq/L (3.5-5.1); Sodium 137 mEq/L (136-145); eGFR For Non-African Americans > 60 (> 60)
[2018-08-12] MEDS: Budesonide/Formoterol 80/4.5 MDI IH PRN (07:27)
[2018-08-12] MEDS: Azithromycin 250 MG TABLET PO SCH (08:44)
[2018-08-12] MEDS: Multivit/Ca/Min/Fe/FA 1 TAB TABLET PO SCH (08:44)
[2018-08-12] MEDS: DALIRESP 500 MCG PO SCH (08:45)
[2018-08-12] MEDS: CALCIUM/VITAMIN D PO SCH (08:45)
[2018-08-12] MEDS: Diltiazem CD (24hr) 240 MG CAPSULE PO SCH (08:46)
--- NOTE | 2018-08-12 10:33 | Internal Med Progress Note ---
Hospitalist Progress Note - Encounter Date of Encounter: 08/12/18 Time of Encounter: 10:31 - Subjective Interval History: Ms. Sifuentes is a 73 year old female with known past medical history of hypertension, hyperlipidemia, COPD, and chronic hypoxic respiratory failure on 2 lit home O2 pt presented to ER with a three-day history of wheezing, dyspnea, dry cough, subjective fevers, chills, nausea, and some vomiting. Because of worsening symptoms and increasing oxygen requirement at home, she came to ER. Patient was admitted in the hospital and started on IV steroids on broad- spectrum antibiotic. Pt stated she is feeling little better today. Patient still complaining about moderate shortness of breath and dyspnea on exertion. Currently she is on 3 lit oxygen. - Exam Vitals: Temp Pulse Resp BP Pulse Ox 98.4 F 91 18 141/74 95 08/12/18 03:28 08/12/18 03:28 08/12/18 07:27 08/12/18 03:28 08/12/18 07:27 Exam: Gen: Alert, awake, Oriented to time,place and person, she does need few pauses to finish full sentence Chest: Diminished breath sounds B/L, Moderate wheezing, No crackles, No rales Heart: S1S2+ RRR No murmurs Abd: Soft, NT, BS +, No organomegaly Ext: No edema, pulses are palpable, No calf tenderness Neuro : Benign findings Skin: No rash. - Assessment and Plan (1) Acute and chronic respiratory failure with hypoxia Current Visit: Yes Status: Acute Assessment and Plan: currently on 4 lit O2 uses 2 lit at home at night time and as needed during day time due to COPD exacerbation and bronchitis continue below treatment She does need home O2 eval - may need portable O2 carrier too. Will talk to (2) Acute bronchitis Current Visit: Yes Status: Acute Assessment and Plan: Mostly bacterial continue empirical antibiotic Rocephin and azithromycin Resp viral panel is negative (3) Acute exacerbation of chronic obstructive airways disease Current Visit: Yes Status: Acute Assessment and Plan: start tapering her systemic steorids cont scheduled bronchodilator therapy continue prophylactic antibiotic continue oxygen try to wean her off the oxygen to baseline (4) Hypertension Current Visit: Yes Status: Chronic Assessment and Plan: Resumed all home medications stable blood pressure now (5) PAF (paroxysmal atrial fibrillation) Current Visit: Yes Status: Chronic Assessment and Plan: Currently in normal sinus rhythm rate controlled with metoprolol on Coumadin for anticoagulation (6) DVT prophylaxis Current Visit: Yes Status: Acute Assessment and Plan: Continue Coumadin -- dosing per pharmacy. - Time Spent with Patient Total time spent is greater than 50% in coordination of care (as documented) at patient's floor/unit and/or counseling patient: Internal Medicine: Result - Labs CBC & Chem 7: 08/12/18 03:57 08/12/18 03:57 Labs: Short CBC 08/12/18 Range/Units 03:57 WBC 12.7 H D (4.3-11.1) K/mcL Hgb 11.5 (11.5-15.4) g/dL Hct 35.6 (35.3-44.9) % Plt Count 369 (140-400) K/mcL Neutrophils # 11.8 H (1.6-8.9) K/mcL BMP 08/12/18 03:57 Sodium 137 Potassium 3.7 Chloride 105 Carbon Dioxide 25 BUN 13 Creatinine 0.61 Glucose 143 H Calcium 8.7 - ABG Interpretation ABG results: PT/INR, D-dimer PT 25.0 Seconds (9.4-12.1) H 08/12/18 03:57 Consult Discharge Plan - Plan Additional Instructions: Call [facility] when you get home to have them deliver portable tanks and to set up automatic delivery. Their number is #[phone]. Referrals: Vladimir Cho MD [Primary Care Provider] - 08/19/18 9:45 am (4) Hypertension Qualifiers: Hypertension type: essential hypertension Qualified Code(s): I10 - Essential (primary) hypertension
[2018-08-12] MEDS: Letrozole 2.5 MG TABLET PO SCH (11:45)
[2018-08-12] MEDS: MethylPREDNISolone 40 MG/ML VIAL IVP SCH ×2 (11:46→21:57)
[2018-08-12] MEDS ORDERED: *HR* Warfarin 3 MG TABLET PO ONE (18:00)
[2018-08-12] MEDS: rOPINIRole 1 MG TABLET PO SCH (19:24)
[2018-08-12] MEDS: Gabapentin 100 MG CAPSULE PO SCH (19:24)
[2018-08-12] MEDS: traZODone 50 MG TABLET PO SCH (19:25)
[2018-08-12] MEDS: cefTRIAXone 2,000 MG in Water for inj. (sterile) 20 ML 20 ML IVP SCH (21:58)
[2018-08-13] MEDS: CALCIUM/VITAMIN D PO SCH ×2 (01:07→08:48)
[2018-08-13] MEDS: Ipratropium/Albuterol Neb 3 ML IH SCH ×2 (03:36→07:20)
[2018-08-13 06:14] LABS: INR 2.4; Prothrombin Time 27.1 Seconds (9.4-12.1)
[2018-08-13 07:44] VITALS: BP 151/79
[2018-08-13] MEDS: DALIRESP 500 MCG PO SCH (08:47)
[2018-08-13] MEDS: Multivit/Ca/Min/Fe/FA 1 TAB TABLET PO SCH (08:48)
[2018-08-13] MEDS: Diltiazem CD (24hr) 240 MG CAPSULE PO SCH (08:48)
[2018-08-13] MEDS: Azithromycin 250 MG TABLET PO SCH (08:48)
--- NOTE | 2018-08-13 09:47 | Discharge Summary ---
- NOTES TO OUTPATIENT PROVIDER Notes to Outpatient Provider: f/u with PCP in one week. Noticed she was taking Potassium supplements 40 meq in AM 20 meq in PM, with out K + supplements her K + levels are here @ 4.0, so recommend to stop taking 40meq dose, she can continue 20 meq since she is on PO Lasix too. Orders not resulted at time of discharge: Pending orders 08/10/18 21:49 Culture,Sputum with Gram Stain [RM] Stat 08/14/18 04:00 Prothrombin Time INR [COAG] DAILY 08/15/18 04:00 Prothrombin Time INR [COAG] DAILY 08/16/18 04:00 Prothrombin Time INR [COAG] DAILY 08/17/18 04:00 Prothrombin Time INR [COAG] DAILY Date of Encounter: 08/13/18 Time of Encounter: 09:43 - Discharge Diagnosis (1) Acute and chronic respiratory failure with hypoxia Priority: Primary Status: Acute (2) Acute bronchitis Priority: Primary Status: Acute Qualifiers: Qualified Code(s): J20.9 - Acute bronchitis, unspecified (3) Acute exacerbation of chronic obstructive airways disease Priority: Primary Status: Acute (4) Hypertension Priority: Secondary Status: Chronic Qualifiers: Hypertension type: essential hypertension Qualified Code(s): I10 - Essential (primary) hypertension (5) PAF (paroxysmal atrial fibrillation) Priority: Secondary Status: Chronic (6) DVT prophylaxis Priority: Secondary Status: Acute Hospital course: Ms. Sifuentes is a 73 year old female with known past medical history of hypertension, hyperlipidemia, COPD, and chronic hypoxic respiratory failure on 2 lit home O2 pt presented to ER with a three-day history of wheezing, dyspnea, dry cough, subjective fevers, chills, nausea, and some vomiting. Because of worsening symptoms and increasing oxygen requirement at home, she came to ER. Patient was admitted in the hospital and started on IV steroids on broad- spectrum antibiotic. Pt symptoms started improving slowly. Pt stated she is feeling much better today, almost at baseline. Noticed she was taking Potassium supplements 40 meq in AM 20 meq in PM, with out K + supplements her K + levels are here @ 4.0, so recommend to stop taking 40meq dose, she can continue 20 meq since she is on PO Lasix too. Will d/c her home with PO tapering dose of Steroids and PO Abx. - Time Spent with Patient Total time spent providing and/or coordinating discharge services: - Discharge Medications Prescriptions: New Cephalexin [Keflex] 500 mg PO TID #9 capsule predniSONE [PredniSONE] 40 mg PO DAILY #10 tablet Continue Roflumilast [Daliresp] 500 mcg PO DAILY Vitamin E (Dl,Tocopheryl Acet) [Vitamin E] 400 unit PO BID #100 cap Fluticasone/Salmeterol [Advair 250-50 Diskus] 2 puff IH BID Albuterol Neb [Proventil Neb] 2.5 mg IH Q2H PRN inhsol PRN Reason: Shortness Of Breath/Wheezing Diltiazem CD (24hr) [Cardizem CD] 240 mg PO DAILY #30 cap.er.24h Furosemide [Lasix] 40 mg PO DAILY #30 tablet Metoprolol [Lopressor] 25 mg PO BID Letrozole [Femara] 2.5 mg PO DAILY #90 tablet Gabapentin [Neurontin] 100 mg PO HS Albuterol Sulfate [Proair Hfa] 2 puff IH Q4H PRN PRN Reason: Shortness Of Breath Atorvastatin Calcium [Lipitor] 20 mg PO DAILY Calcium Carbonate/Vitamin D3 [Calcium 600+D Softgel] 2 cap PO DAILY Clobetasol Propionate 0.05% [Temovate 0.05%] 1 appl TP 3XW Losartan [Cozaar] 25 mg PO BID Multivitamin [Daily Multiple Vitamin] 1 tab PO DAILY OxyCODONE/APAP 10/325 [Percocet 10/325 MG] 1 tab PO Q6H PRN PRN Reason: Pain Potassium Chloride [K-Tab ER] 20 meq PO QPM Ropinirole HCl [Requip] 4 mg PO HS Trazodone HCl 200 mg PO HS Warfarin [Coumadin] 3 mg PO MOTHSA Warfarin [Coumadin] 4.5 mg PO SUTUWEFR Discontinued Potassium Chloride [K-Tab ER] 40 meq PO QAM Home Medications: Roflumilast [Daliresp] 500 mcg PO DAILY 02/15/15 [History] Vitamin E (Dl,Tocopheryl Acet) [Vitamin E] 400 unit PO BID #100 cap 08/20/15 [Rx] Fluticasone/Salmeterol [Advair 250-50 Diskus] 2 puff IH BID 04/21/17 [History] Albuterol Neb [Proventil Neb] 2.5 mg IH Q2H PRN inhsol 10/03/17 [Rx] Diltiazem CD (24hr) [Cardizem CD] 240 mg PO DAILY #30 cap.er.24h 10/03/17 [Rx] Furosemide [Lasix] 40 mg PO DAILY #30 tablet 10/03/17 [Rx] Metoprolol [Lopressor] 25 mg PO BID 03/17/18 [History] Letrozole [Femara] 2.5 mg PO DAILY #90 tablet 04/16/18 [Rx] Gabapentin [Neurontin] 100 mg PO HS 08/10/18 [History] Albuterol Sulfate [Proair Hfa] 2 puff IH Q4H PRN 08/11/18 [History] Atorvastatin Calcium [Lipitor] 20 mg PO DAILY 08/11/18 [History] Calcium Carbonate/Vitamin D3 [Calcium 600+D Softgel] 2 cap PO DAILY 08/11/18 [History] Clobetasol Propionate 0.05% [Temovate 0.05%] 1 appl TP 3XW 08/11/18 [History] Losartan [Cozaar] 25 mg PO BID 08/11/18 [History] Multivitamin [Daily Multiple Vitamin] 1 tab PO DAILY 08/11/18 [History] OxyCODONE/APAP 10/325 [Percocet 10/325 MG] 1 tab PO Q6H PRN 08/11/18 [History] Potassium Chloride [K-Tab ER] 20 meq PO QPM 08/11/18 [History] Ropinirole HCl [Requip] 4 mg PO HS 08/11/18 [History] Trazodone HCl 200 mg PO HS 08/11/18 [History] Warfarin [Coumadin] 3 mg PO MOTHSA 08/11/18 [History] Warfarin [Coumadin] 4.5 mg PO SUTUWEFR 08/11/18 [History] Cephalexin [Keflex] 500 mg PO TID #9 capsule 08/13/18 [Rx] predniSONE [PredniSONE] 40 mg PO DAILY #10 tablet 08/13/18 [Rx] Allergies/Adverse Reactions: Allergy/AdvReac Type Severity Reaction Status Date / Time levofloxacin [From Levaquin] AdvReac Itching Verified 03/17/18 10:55 Sulfa (Sulfonamide AdvReac Nausea Verified 03/17/18 10:55 Antibiotics) Varenicline [From Chantix] AdvReac Nausea Verified 03/17/18 10:55 Date of admission: 08/12/18 10:30 Primary care physician: Vladimir Cho MD Consults: 08/12/18 08:40 Consult to Nurse Navigator [CONS] Routine Comment: COPD - Constitutional Vitals: Temp Pulse Resp BP Pulse Ox 98.1 F 95 19 151/79 96 08/13/18 07:41 08/13/18 07:41 08/13/18 07:41 08/13/18 07:41 08/13/18 07:41 General appearance: Present: cooperative, A&O X 3, pleasant, answers questions appropriately Exam: Gen: Alert, awake, Oriented to time,place and person, she does need few pauses to finish full sentence Chest: Diminished breath sounds B/L, Mild wheezing, No crackles, No rales Heart: S1S2+ RRR No murmurs Abd: Soft, NT, BS +, No organomegaly Ext: No edema, pulses are palpable, No calf tenderness Neuro : Benign findings Skin: No rash. - Patient Status Disposition: Home, Self-Care Condition: Good Overall status at discharge: patient is back to baseline - Discharge Instructions Follow Up With: Vladimir Cho MD [Primary Care Provider] - 08/19/18 9:45 am Additional Instructions: Call [facility] [place] when you get home to have them deliver portable tanks and to set up automatic delivery. Their number is #[phone]. - Diet and Activity Activity: increase activity as tolerated, wear oxygen at night Diet: low salt diet
[2018-08-13] MEDS: *HR* OxyCODONE/APAP 10/325 TABLET PO PRN (10:19)
[2018-08-13] MEDS ORDERED: *HR* Warfarin 3 MG TABLET PO ONE (18:00)
== END 2018-08-13 10:33 | disposition home or self-care (01) | DRG 189 ==
LOC: EMEROOARM 17:50 → 3BNU 17:50 → SUATTDRO 21:07 → 3BNU 21:12
PROVIDERS: ADMIT Internal Medicine; ATTEND Family Medicine

== ENCOUNTER 2019-07-08 09:50 | Inpatient (IN) ==
[2019-07-08] MEDS ORDERED: Ipratropium/Albuterol Neb 3 ML IH ONE (10:11)
[2019-07-08 10:13] LABS: ABG Base Excess 0 mEq/L (-2 to 3); ABG HCO3 24 mEq/L (21-27); ABG Oxygen Saturation 82 % (95-98); ABG PCO2 38 mmHg (35-45); ABG PH 7.41 pH Units (7.32-7.45); ABG PO2 46 mmHg (85-104); ABG TCO2 25 mEq/L (20-26)
[2019-07-08 10:22] LABS: Basophils % 0.1 %; Eosinophils % 0.1 %; Hematocrit 38.2 % (35.3-44.9); Hemoglobin 12.6 g/dL (11.5-15.4); Immature Granulocytes % 0.8 % (0-4); Lymphocytes # 0.4 K/mcL (0.6-4.6); Mean Corpuscular Hemoglobin 31.3 pg (28.0-33.3); Mean Platelet Volume 9.6 fL (9.4-12.4); Monocytes # 0.5 K/mcL (0.0-1.3); Monocytes % 3.5 %; Platelet Count 312 K/mcL (140-400); Red Blood Count 4.02 M/mcL (3.82-4.97); Red Cell Distribution Width 14.3 % (11.5-14.5); Segmented Neutrophils % 92.5 %; White Blood Count 14.1 K/mcL (4.3-11.1)
[2019-07-08] MEDS ORDERED: cefTRIAXone 1,000 MG in Water for inj. (sterile) 10 ML IVP ONE (10:31)
[2019-07-08] MEDS ORDERED: Azithromycin 500 MG in 0.9 % Sodium Chloride 250 ML IVPB ONE (10:31)
[2019-07-08 10:51] LABS: Troponin I 0.15 ng/mL (< 0.04)
[2019-07-08 10:53] LABS: Calcium 8.5 mg/dL (8.6-10.3); Potassium 4.4 mEq/L (3.5-5.1)
[2019-07-08 11:02] LABS: INR 5.9; Prothrombin Time 67.7 Seconds (9.4-12.1)
[2019-07-08] MEDS ORDERED: Naloxone 0.4 MG/ML INJ IVP PRN (11:56)
[2019-07-08] MEDS ORDERED: Ipratropium Neb 0.5 MG NEBULIZER IH PRN (12:01)
[2019-07-08 12:25] LABS: ABG Base Excess -1 mEq/L (-2 to 3); ABG HCO3 23 mEq/L (21-27); ABG Oxygen Saturation 98 % (95-98); ABG PCO2 39 mmHg (35-45); ABG PH 7.39 pH Units (7.32-7.45); ABG PO2 109 mmHg (85-104); ABG TCO2 25 mEq/L (20-26)
[2019-07-08 12:38] LABS: Magnesium 1.7 mg/dL (1.6-2.6)
[2019-07-08] MEDS ORDERED: 0.9 % Sodium Chloride 500 ML IVC ONE (14:34)
[2019-07-08] MEDS: Levalbuterol Neb 0.63 MG/3 ML IH SCH ×3 (15:14→21:54)
[2019-07-08 16:00] LABS: Hematocrit 32.9 % (35.3-44.9)
[2019-07-08 16:01] LABS: VBG HCO3 22 mEq/L (21-27); VBG PCO2 36 mmHg (41-51); VBG PO2 134 mmHg (25-50)
[2019-07-08 16:12] LABS: Hemoglobin 10.9 g/dL (11.5-15.4)
[2019-07-08] MEDS ORDERED: Perflutren Lipid Microsphere 1.3 ML in 0.9 % Sodium Chloride 8.7 ML IVP ONE (16:13)
[2019-07-08 16:15] LABS: INR 7.1; Prothrombin Time 80.4 Seconds (9.4-12.1)
[2019-07-08] MEDS ORDERED: *HR* Phytonadione 5 MG TABLET PO ONE (16:25)
[2019-07-08 16:37] LABS: Troponin I 0.09 ng/mL (< 0.04)
[2019-07-08] MEDS: MethylPREDNISolone 40 MG/ML VIAL IVP SCH ×2 (17:14→22:53)
[2019-07-08] MEDS: Piperacillin/Tazobactam 3.375 GM in 0.9 % Sodium Chloride Mini Bag 100 ML IVPB SCH (17:14)
[2019-07-08] MEDS: 0.9 % Sodium Chloride 1,000 ML IVC SCH (17:15)
[2019-07-08] MEDS: Doxycycline 100 MG in 0.9 % Sodium Chloride Mini Bag 100 ML IVPB SCH (17:17)
[2019-07-08 17:19] LABS: ABG Base Excess 0 mEq/L (-2 to 3); ABG HCO3 24 mEq/L (21-27); ABG Oxygen Saturation 94 % (95-98); ABG PCO2 39 mmHg (35-45); ABG PO2 71 mmHg (85-104); ABG TCO2 26 mEq/L (20-26)
[2019-07-08 18:45] LABS: Bilirubin,Urine Small (Negative); Blood,Urine Negative (Negative); Clarity,Urine Cloudy (Clear); Color,Urine Yellow (Yellow); Glucose,Urine (UA) Normal (Normal); Ketones,Urine Negative (Negative); Leukocyte Esterase,Urine Moderate (Negative); Nitrite,Urine Negative (Negative); PH,Urine 5.5 pH Units (5.0-8.0); Protein,Urine Trace mg/dL (Neg-Trace); Urobilinogen,Urine Normal (Normal)
[2019-07-08 18:49] LABS: Bacteria,Urine None Seen per hpf (None-Few); Hyaline Casts,Urine Few per lpf (None-Few); Squamous Epithelial Cell,Urine Many per lpf (None-Few); WBC,Urine 15-30 per hpf (0-3)
[2019-07-08 18:52] LABS: Adenovirus Not Detected (Not Detect); Bordetella Pertussis Not Detected (Not Detect); Chlamydophila pneumoniae Not Detected (Not Detect); Coronavirus 229E Not Detected (Not Detect); Coronavirus HKU1 Not Detected (Not Detect); Coronavirus NL63 Not Detected (Not Detect); Coronavirus OC43 Not Detected (Not Detect); Human Metapneumovirus Not Detected (Not Detect); Human Rhinovirus/Enterovirus Not Detected (Not Detect); Influenza A Subtype 2009 H1 Not Detected (Not Detect); Influenza B Not Detected (Not Detect); Mycoplasma pneumoniae Not Detected (Not Detect); Parainfluenza Virus 1 Not Detected (Not Detect); Parainfluenza Virus 2 Not Detected (Not Detect); Parainfluenza Virus 3 Not Detected (Not Detect); Parainfluenza Virus 4 Not Detected (Not Detect); Respiratory Syncytial Virus Not Detected (Not Detect)
[2019-07-08 21:32] LABS: Hematocrit 33.7 % (35.3-44.9); Hemoglobin 11.4 g/dL (11.5-15.4)
[2019-07-08] MEDS: Ondansetron 4 MG/2 ML VIAL IVP PRN (21:52)
[2019-07-08] MEDS: rOPINIRole 1 MG TABLET PO SCH (21:52)
[2019-07-08] MEDS ORDERED: traZODone 50 MG TABLET PO SCH (22:00)
[2019-07-08 22:09] LABS: INR 6.3; Prothrombin Time 71.6 Seconds (9.4-12.1)
[2019-07-08] MEDS: Gabapentin 100 MG CAPSULE PO SCH (22:53)
[2019-07-09] MEDS: Piperacillin/Tazobactam 3.375 GM in 0.9 % Sodium Chloride Mini Bag 100 ML IVPB SCH ×4 (01:03→23:00)
[2019-07-09] MEDS: Levalbuterol Neb 0.63 MG/3 ML IH SCH ×4 (03:52→22:03)
[2019-07-09 03:58] LABS: Basophils % 0.2 %; Eosinophils % 0.1 %; Hematocrit 37.9 % (35.3-44.9); Hemoglobin 12.2 g/dL (11.5-15.4); Immature Granulocytes % 0.6 % (0-4); Lymphocytes # 0.4 K/mcL (0.6-4.6); Lymphocytes % 2.2 %; Mean Corpuscular HGB Conc 32.2 g/dL (31.6-35.5); Mean Corpuscular Hemoglobin 31.2 pg (28.0-33.3); Mean Corpuscular Volume 96.9 fL (83.0-100.0); Mean Platelet Volume 9.4 fL (9.4-12.4); Monocytes # 0.4 K/mcL (0.0-1.3); Monocytes % 2.3 %; Neutrophils # 16.5 K/mcL (1.6-8.9); Platelet Count 296 K/mcL (140-400); Red Blood Count 3.91 M/mcL (3.82-4.97); Red Cell Distribution Width 14.5 % (11.5-14.5); Segmented Neutrophils % 94.6 %; White Blood Count 17.4 K/mcL (4.3-11.1)
[2019-07-09 04:00] LABS: VBG HCO3 26 mEq/L (21-27); VBG PCO2 51 mmHg (41-51); VBG PH 7.31 pH Units (7.32-7.42); VBG PO2 108 mmHg (25-50)
[2019-07-09 04:03] LABS: INR 3.4; Prothrombin Time 38.2 Seconds (9.4-12.1)
[2019-07-09 04:16] LABS: BUN/Creatinine Ratio 18 (6-26); Blood Urea Nitrogen 15 mg/dL (8-23); Calcium 8.5 mg/dL (8.6-10.3); Carbon Dioxide 24 mEq/L (23-29); Chloride 98 mEq/L (98-107); Cholesterol 100 mg/dL (< 200); Glucose 125 mg/dL (70-105); HDL Cholesterol 49 mg/dL (40-59); LDL Cholesterol,Calculated 42 mg/dL (0-99); Magnesium 1.9 mg/dL (1.6-2.6); Osmolality,Calculated 274 (280-300); Phosphorous 2.7 mg/dL (2.7-4.5); Potassium 4.7 mEq/L (3.5-5.1); Sodium 131 mEq/L (136-145); Triglycerides 47 mg/dL (< 150); eGFR For African Americans > 60 (> 60); eGFR For Non-African Americans > 60 (> 60)
[2019-07-09] MEDS ORDERED: *HR* OxyCODONE/APAP 5/325 TABLET PO ONE (05:41)
[2019-07-09] MEDS ORDERED: *HR* Metoprolol 5 MG/5 ML VIAL IVP ONE (05:41)
[2019-07-09] MEDS: Doxycycline 100 MG in 0.9 % Sodium Chloride Mini Bag 100 ML IVPB SCH ×2 (06:02→17:03)
[2019-07-09] MEDS: DilTIAZem CD (24hr) 240 MG CAP.ER.24H PO SCH (07:47)
[2019-07-09] MEDS: MethylPREDNISolone 40 MG/ML VIAL IVP SCH ×3 (07:48→23:01)
[2019-07-09] MEDS: Letrozole 2.5 MG TABLET PO SCH (07:48)
[2019-07-09] MEDS: Aspirin Enteric Coated 81 MG Tablet PO SCH (07:48)
[2019-07-09 08:55] LABS: Estimated Average Glucose 120 mg/dl
[2019-07-09] MEDS ORDERED: MethylPREDNISolone 40 MG/ML VIAL IVP SCH (09:00)
[2019-07-09] MEDS ORDERED: *HR* Phytonadione 5 MG TABLET PO ONE (09:25)
[2019-07-09] MEDS: 0.9 % Sodium Chloride 1,000 ML IVC SCH ×3 (10:25→23:11)
[2019-07-09] MEDS ORDERED: Azithromycin 500 MG in 0.9 % Sodium Chloride 250 ML IVPB SCH (12:00)
[2019-07-09] MEDS ORDERED: cefTRIAXone 1,000 MG in Water for inj. (sterile) 10 ML IVP SCH (12:00)
[2019-07-09] MEDS: *HR* OxyCODONE/APAP 10/325 TABLET PO PRN ×2 (12:48→20:28)
[2019-07-09 17:32] LABS: INR 2.1; Prothrombin Time 23.4 Seconds (9.4-12.1)
[2019-07-09] MEDS: Gabapentin 100 MG CAPSULE PO SCH ×2 (20:22→20:28)
[2019-07-09] MEDS: rOPINIRole 1 MG TABLET PO SCH (20:28)
[2019-07-09] MEDS: traZODone 50 MG TABLET PO SCH (20:28)
[2019-07-09] MEDS: Ondansetron 4 MG/2 ML VIAL IVP PRN (23:05)
[2019-07-10 02:04] LABS: Basophils % 0.2 %; Hematocrit 34.1 % (35.3-44.9); Hemoglobin 11.3 g/dL (11.5-15.4); Immature Granulocytes % 0.6 % (0-4); Lymphocytes # 0.5 K/mcL (0.6-4.6); Lymphocytes % 3.2 %; Mean Corpuscular HGB Conc 33.1 g/dL (31.6-35.5); Mean Corpuscular Hemoglobin 31.1 pg (28.0-33.3); Mean Corpuscular Volume 93.9 fL (83.0-100.0); Mean Platelet Volume 9.7 fL (9.4-12.4); Monocytes # 0.5 K/mcL (0.0-1.3); Monocytes % 3.5 %; Neutrophils # 14.3 K/mcL (1.6-8.9); Platelet Count 336 K/mcL (140-400); Red Blood Count 3.63 M/mcL (3.82-4.97); Red Cell Distribution Width 14.4 % (11.5-14.5); Segmented Neutrophils % 92.5 %; White Blood Count 15.5 K/mcL (4.3-11.1)
[2019-07-10 02:07] LABS: INR 1.7; Prothrombin Time 19.4 Seconds (9.4-12.1)
[2019-07-10 02:25] LABS: BUN/Creatinine Ratio 24 (6-26); Blood Urea Nitrogen 18 mg/dL (8-23); Calcium 8.4 mg/dL (8.6-10.3); Carbon Dioxide 22 mEq/L (23-29); Chloride 102 mEq/L (98-107); Glucose 147 mg/dL (70-105); Osmolality,Calculated 283 (280-300); Potassium 4.3 mEq/L (3.5-5.1); Sodium 134 mEq/L (136-145); eGFR For African Americans > 60 (> 60); eGFR For Non-African Americans > 60 (> 60)
[2019-07-10] MEDS: Levalbuterol Neb 0.63 MG/3 ML IH SCH ×4 (03:49→22:32)
[2019-07-10] MEDS: Doxycycline 100 MG in 0.9 % Sodium Chloride Mini Bag 100 ML IVPB SCH ×2 (06:45→17:19)
[2019-07-10] MEDS: Letrozole 2.5 MG TABLET PO SCH (07:54)
[2019-07-10] MEDS: DilTIAZem CD (24hr) 240 MG CAP.ER.24H PO SCH (07:54)
[2019-07-10] MEDS: Aspirin Enteric Coated 81 MG Tablet PO SCH (07:54)
[2019-07-10] MEDS: Multivit/Ca/Min/Fe/FA 1 TAB TABLET PO SCH (07:54)
[2019-07-10] MEDS: *HR* OxyCODONE/APAP 10/325 TABLET PO PRN ×3 (07:54→20:48)
[2019-07-10] MEDS: MethylPREDNISolone 40 MG/ML VIAL IVP SCH ×3 (07:55→23:19)
[2019-07-10] MEDS: Piperacillin/Tazobactam 3.375 GM in 0.9 % Sodium Chloride Mini Bag 100 ML IVPB SCH ×3 (07:55→23:19)
[2019-07-10] MEDS: Magnesium Oxide 400 MG TABLET PO SCH (07:56)
[2019-07-10] MEDS ORDERED: *HR* FentaNYL (PF) 100 MCG/2 ML VIAL ONE (09:13)
[2019-07-10] MEDS ORDERED: Lidocaine HCL 4 ML Topical Solution (Laryng-O-Jet Kit Sterile Pak) TP ONE (09:13)
[2019-07-10] MEDS ORDERED: Ondansetron 4 MG/2 ML VIAL ONE (09:13)
[2019-07-10] MEDS ORDERED: Lidocaine -MPF 2% 2 ML VIAL ONE (09:13)
[2019-07-10] MEDS ORDERED: *HR* Propofol 200 MG/20 ML VIAL IVP ONE (09:13)
[2019-07-10] MEDS ORDERED: Dexamethasone 4 MG/ML VIAL ONE (09:13)
[2019-07-10] MEDS ORDERED: *HR* Succinylcholine 200 MG/10 ML VIAL IVP ONE (09:13)
[2019-07-10] MEDS ORDERED: Albuterol 2.5 MG/3 ML NEBULIZER ONE (10:29)
[2019-07-10] MEDS ORDERED: Albuterol 2.5 MG/3 ML NEBULIZER IH ONE (10:45)
[2019-07-10 17:28] LABS: Appearance of Body Fluid Cloudy (Clear); Volume of Body Fluid 19 mL
[2019-07-10] MEDS: Budesonide/Formoterol 80/4.5 1 PUFF INH IH SCH ×3 (19:34→22:30)
[2019-07-10] MEDS: traZODone 50 MG TABLET PO SCH (20:47)
[2019-07-10] MEDS: rOPINIRole 1 MG TABLET PO SCH (20:47)
[2019-07-10] MEDS: Gabapentin 100 MG CAPSULE PO SCH ×2 (20:47→20:48)
[2019-07-10] MEDS ORDERED: *HR* Metoprolol 5 MG/5 ML VIAL IVP ONE ×3 (21:25→23:44)
[2019-07-11] MEDS ORDERED: *HR* Metoprolol 5 MG/5 ML VIAL IVP ONE ×3 (02:06→09:23)
[2019-07-11] MEDS: Levalbuterol Neb 0.63 MG/3 ML IH SCH ×4 (03:23→21:56)
[2019-07-11] MEDS ORDERED: *HR* Metoprolol 5 MG/5 ML VIAL IVP PRN (03:54)
[2019-07-11] MEDS: *HR* Metoprolol 5 MG/5 ML VIAL IVP PRN ×3 (04:12→22:19)
[2019-07-11] MEDS: Doxycycline 100 MG in 0.9 % Sodium Chloride Mini Bag 100 ML IVPB SCH ×2 (04:12→17:43)
[2019-07-11] MEDS: *HR* OxyCODONE/APAP 10/325 TABLET PO PRN ×2 (04:12→20:15)
[2019-07-11 04:56] LABS: Basophils % 0.2 %; Hematocrit 36.2 % (35.3-44.9); Hemoglobin 12.2 g/dL (11.5-15.4); Immature Granulocytes % 1.3 % (0-4); Lymphocytes # 0.9 K/mcL (0.6-4.6); Lymphocytes % 5.2 %; Mean Corpuscular HGB Conc 33.7 g/dL (31.6-35.5); Mean Corpuscular Hemoglobin 31.3 pg (28.0-33.3); Mean Corpuscular Volume 92.8 fL (83.0-100.0); Mean Platelet Volume 9.3 fL (9.4-12.4); Monocytes # 0.6 K/mcL (0.0-1.3); Monocytes % 3.7 %; Neutrophils # 15.5 K/mcL (1.6-8.9); Nucleated Red Blood Cells 0.2 /100 WBC (0); Platelet Count 447 K/mcL (140-400); Red Cell Distribution Width 14.6 % (11.5-14.5); Segmented Neutrophils % 89.6 %; White Blood Count 17.4 K/mcL (4.3-11.1)
[2019-07-11 05:08] LABS: BUN/Creatinine Ratio 30 (6-26); Blood Urea Nitrogen 18 mg/dL (8-23); Calcium 8.8 mg/dL (8.6-10.3); Carbon Dioxide 22 mEq/L (23-29); Chloride 103 mEq/L (98-107); Glucose 151 mg/dL (70-105); Osmolality,Calculated 281 (280-300); Potassium 4.3 mEq/L (3.5-5.1); Sodium 133 mEq/L (136-145); eGFR For African Americans > 60 (> 60); eGFR For Non-African Americans > 60 (> 60)
[2019-07-11] MEDS: Aspirin Enteric Coated 81 MG Tablet PO SCH (08:17)
[2019-07-11] MEDS: Multivit/Ca/Min/Fe/FA 1 TAB TABLET PO SCH (08:18)
[2019-07-11] MEDS: DilTIAZem CD (24hr) 240 MG CAP.ER.24H PO SCH (08:18)
[2019-07-11] MEDS: Magnesium Oxide 400 MG TABLET PO SCH (08:18)
[2019-07-11] MEDS: Letrozole 2.5 MG TABLET PO SCH (08:18)
[2019-07-11] MEDS: Piperacillin/Tazobactam 3.375 GM in 0.9 % Sodium Chloride Mini Bag 100 ML IVPB SCH ×2 (08:19→15:38)
[2019-07-11] MEDS: MethylPREDNISolone 40 MG/ML VIAL IVP SCH ×2 (08:19→15:53)
[2019-07-11] MEDS: Clobetasol Propionate 0.05% 15 GM Cream Tube TP SCH (08:27)
[2019-07-11] MEDS: Budesonide/Formoterol 80/4.5 1 PUFF INH IH SCH ×2 (10:32→21:56)
[2019-07-11] MEDS: DilTIAZem 50 MG in 0.9 % Sodium Chloride 40 ML IVC SCH ×2 (11:35→18:05)
[2019-07-11 12:24] LABS: INR 1.4; Prothrombin Time 16.1 Seconds (9.4-12.1)
[2019-07-11] MEDS ORDERED: *HR* Warfarin 3 MG TABLET PO ONE (18:00)
[2019-07-11] MEDS ORDERED: Warfarin perPT PO PRN (18:00)
[2019-07-11] MEDS: Gabapentin 100 MG CAPSULE PO SCH (20:15)
[2019-07-11] MEDS: traZODone 50 MG TABLET PO SCH (20:16)
[2019-07-11] MEDS: rOPINIRole 1 MG TABLET PO SCH (20:16)
[2019-07-12] MEDS: Piperacillin/Tazobactam 3.375 GM in 0.9 % Sodium Chloride Mini Bag 100 ML IVPB SCH ×3 (01:20→16:47)
[2019-07-12 01:22] LABS: Basophils # 0.1 K/mcL (0.0-0.2); Basophils % 0.5 %; Hematocrit 38.4 % (35.3-44.9); Hemoglobin 12.5 g/dL (11.5-15.4); Immature Granulocytes % 4.9 % (0-4); Lymphocytes # 1.2 K/mcL (0.6-4.6); Mean Corpuscular HGB Conc 32.6 g/dL (31.6-35.5); Mean Corpuscular Hemoglobin 30.9 pg (28.0-33.3); Mean Corpuscular Volume 94.8 fL (83.0-100.0); Monocytes # 0.9 K/mcL (0.0-1.3); Neutrophils # 12.5 K/mcL (1.6-8.9); Nucleated Red Blood Cells 0.1 /100 WBC (0); Platelet Count 503 K/mcL (140-400); Red Blood Count 4.05 M/mcL (3.82-4.97); Red Cell Distribution Width 14.6 % (11.5-14.5); Segmented Neutrophils % 80.6 %; White Blood Count 15.4 K/mcL (4.3-11.1)
[2019-07-12 01:34] LABS: INR 1.6; Prothrombin Time 17.9 Seconds (9.4-12.1)
[2019-07-12 01:37] LABS: BUN/Creatinine Ratio 27 (6-26); Blood Urea Nitrogen 17 mg/dL (8-23); Calcium 8.7 mg/dL (8.6-10.3); Carbon Dioxide 23 mEq/L (23-29); Chloride 103 mEq/L (98-107); Glucose 126 mg/dL (70-105); Osmolality,Calculated 279 (280-300); Potassium 4.2 mEq/L (3.5-5.1); Sodium 133 mEq/L (136-145); eGFR For African Americans > 60 (> 60); eGFR For Non-African Americans > 60 (> 60)
[2019-07-12] MEDS: Levalbuterol Neb 0.63 MG/3 ML IH SCH ×4 (03:51→22:13)
[2019-07-12] MEDS: MethylPREDNISolone 40 MG/ML VIAL IVP SCH ×2 (05:22→16:32)
[2019-07-12] MEDS: Doxycycline 100 MG in 0.9 % Sodium Chloride Mini Bag 100 ML IVPB SCH ×2 (05:22→17:57)
[2019-07-12] MEDS: Magnesium Oxide 400 MG TABLET PO SCH (08:21)
[2019-07-12] MEDS: DilTIAZem CD (24hr) 180 MG CAP.ER.24H PO SCH (08:21)
[2019-07-12] MEDS: Multivit/Ca/Min/Fe/FA 1 TAB TABLET PO SCH (08:21)
[2019-07-12] MEDS: Letrozole 2.5 MG TABLET PO SCH (08:21)
[2019-07-12] MEDS: Aspirin Enteric Coated 81 MG Tablet PO SCH (08:22)
[2019-07-12] MEDS: *HR* OxyCODONE/APAP 10/325 TABLET PO PRN ×2 (08:39→21:22)
[2019-07-12] MEDS ORDERED: *HR* Heparin 5,000 UNIT/ML VIAL IVP PRN ×2 (09:42)
[2019-07-12] MEDS ORDERED: *HR* Heparin 5,000 UNIT/ML VIAL IVP ONE (09:42)
[2019-07-12] MEDS ORDERED: Heparin 25,000 UNIT/250 ML D5W 25,000 UNIT/250 ML IV.SOLN IVC SCH (09:45)
[2019-07-12] MEDS: Budesonide/Formoterol 80/4.5 1 PUFF INH IH SCH ×2 (10:40→22:13)
[2019-07-12] MEDS ORDERED: *HR* Digoxin 0.5 MG/2 ML AMPUL IVP ONE (15:54)
[2019-07-12] MEDS ORDERED: *HR* Warfarin 3 MG TABLET PO ONE (18:00)
[2019-07-12] MEDS: traZODone 50 MG TABLET PO SCH (21:17)
[2019-07-12] MEDS: rOPINIRole 1 MG TABLET PO SCH (21:18)
[2019-07-12] MEDS: Gabapentin 100 MG CAPSULE PO SCH (21:19)
[2019-07-13] MEDS: Piperacillin/Tazobactam 3.375 GM in 0.9 % Sodium Chloride Mini Bag 100 ML IVPB SCH ×4 (00:03→22:53)
[2019-07-13] MEDS: *HR* Digoxin 0.5 MG/2 ML AMPUL IVP SCH ×2 (00:04→05:15)
[2019-07-13 01:36] LABS: Hematocrit 36.8 % (35.3-44.9); Mean Corpuscular HGB Conc 32.6 g/dL (31.6-35.5); Mean Corpuscular Hemoglobin 30.9 pg (28.0-33.3); Mean Corpuscular Volume 94.8 fL (83.0-100.0); Mean Platelet Volume 8.9 fL (9.4-12.4); Platelet Count 513 K/mcL (140-400); Red Blood Count 3.88 M/mcL (3.82-4.97); Red Cell Distribution Width 14.4 % (11.5-14.5); White Blood Count 21.7 K/mcL (4.3-11.1)
[2019-07-13 01:41] LABS: INR 2.7; Prothrombin Time 31.1 Seconds (9.4-12.1)
[2019-07-13 01:53] LABS: Lymphocytes # 1.3 K/mcL (0.6-4.6); Monocytes # 1.3 K/mcL (0.0-1.3); Neutrophils # 17.8 K/mcL (1.6-8.9)
[2019-07-13 01:54] LABS: Platelet Estimate Increased (Normal)
[2019-07-13 02:00] LABS: BUN/Creatinine Ratio 36 (6-26); Blood Urea Nitrogen 29 mg/dL (8-23); Calcium 8.4 mg/dL (8.6-10.3); Carbon Dioxide 25 mEq/L (23-29); Chloride 101 mEq/L (98-107); Glucose 141 mg/dL (70-105); Osmolality,Calculated 286 (280-300); Potassium 4.5 mEq/L (3.5-5.1); Sodium 134 mEq/L (136-145); eGFR For African Americans > 60 (> 60); eGFR For Non-African Americans > 60 (> 60)
[2019-07-13] MEDS: Levalbuterol Neb 0.63 MG/3 ML IH SCH ×5 (03:54→23:45)
[2019-07-13] MEDS: Doxycycline 100 MG in 0.9 % Sodium Chloride Mini Bag 100 ML IVPB SCH ×2 (04:59→18:14)
[2019-07-13] MEDS: MethylPREDNISolone 40 MG/ML VIAL IVP SCH ×2 (04:59→16:33)
[2019-07-13] MEDS: *HR* OxyCODONE/APAP 10/325 TABLET PO PRN ×3 (05:10→20:48)
[2019-07-13] MEDS: Aspirin Enteric Coated 81 MG Tablet PO SCH (08:45)
[2019-07-13] MEDS: Letrozole 2.5 MG TABLET PO SCH (08:45)
[2019-07-13] MEDS: DilTIAZem CD (24hr) 180 MG CAP.ER.24H PO SCH (08:45)
[2019-07-13] MEDS: Multivit/Ca/Min/Fe/FA 1 TAB TABLET PO SCH (08:45)
[2019-07-13] MEDS: Ondansetron 4 MG/2 ML VIAL IVP PRN (08:45)
[2019-07-13] MEDS: Magnesium Oxide 400 MG TABLET PO SCH (08:45)
[2019-07-13] MEDS: Clobetasol Propionate 0.05% 15 GM Cream Tube TP SCH (08:48)
[2019-07-13] MEDS: Budesonide/Formoterol 80/4.5 1 PUFF INH IH SCH ×2 (10:35→22:03)
[2019-07-13] MEDS ORDERED: *HR* Warfarin 3 MG TABLET PO ONE (18:00)
[2019-07-13] MEDS: *HR* Digoxin 0.125 MG TABLET PO SCH (18:13)
[2019-07-13] MEDS: rOPINIRole 1 MG TABLET PO SCH (20:36)
[2019-07-13] MEDS: traZODone 50 MG TABLET PO SCH (20:36)
[2019-07-13] MEDS: Gabapentin 100 MG CAPSULE PO SCH (20:37)
[2019-07-14 01:43] LABS: Basophils # 0.1 K/mcL (0.0-0.2); Basophils % 0.6 %; Hematocrit 35.4 % (35.3-44.9); Immature Granulocytes % 5.8 % (0-4); Lymphocytes # 1.2 K/mcL (0.6-4.6); Lymphocytes % 5.2 %; Mean Corpuscular HGB Conc 31.1 g/dL (31.6-35.5); Mean Corpuscular Hemoglobin 31.2 pg (28.0-33.3); Mean Corpuscular Volume 100.3 fL (83.0-100.0); Mean Platelet Volume 8.8 fL (9.4-12.4); Monocytes # 0.9 K/mcL (0.0-1.3); Neutrophils # 18.8 K/mcL (1.6-8.9); Platelet Count 447 K/mcL (140-400); Red Blood Count 3.53 M/mcL (3.82-4.97); Red Cell Distribution Width 14.6 % (11.5-14.5); Segmented Neutrophils % 84.4 %; White Blood Count 22.3 K/mcL (4.3-11.1)
[2019-07-14 01:45] LABS: INR 3.8
[2019-07-14 02:00] LABS: BUN/Creatinine Ratio 31 (6-26); Blood Urea Nitrogen 27 mg/dL (8-23); Carbon Dioxide 25 mEq/L (23-29); Chloride 104 mEq/L (98-107); Glucose 146 mg/dL (70-105); Osmolality,Calculated 284 (280-300); Potassium 4.1 mEq/L (3.5-5.1); Sodium 133 mEq/L (136-145); eGFR For African Americans > 60 (> 60); eGFR For Non-African Americans > 60 (> 60)
[2019-07-14 02:01] LABS: Prothrombin Time 43.7 Seconds (9.4-12.1)
[2019-07-14 02:44] LABS: Platelet Estimate Increased (Normal)
[2019-07-14] MEDS: Levalbuterol Neb 0.63 MG/3 ML IH SCH ×4 (03:49→22:14)
[2019-07-14] MEDS: MethylPREDNISolone 40 MG/ML VIAL IVP SCH (04:22)
[2019-07-14] MEDS: Doxycycline 100 MG in 0.9 % Sodium Chloride Mini Bag 100 ML IVPB SCH ×2 (04:51→17:07)
[2019-07-14] MEDS: *HR* OxyCODONE/APAP 10/325 TABLET PO PRN ×4 (04:52→23:32)
[2019-07-14] MEDS: DilTIAZem CD (24hr) 180 MG CAP.ER.24H PO SCH (07:52)
[2019-07-14] MEDS: Aspirin Enteric Coated 81 MG Tablet PO SCH (07:52)
[2019-07-14] MEDS: *HR* Digoxin 0.125 MG TABLET PO SCH (07:52)
[2019-07-14] MEDS: Magnesium Oxide 400 MG TABLET PO SCH (07:52)
[2019-07-14] MEDS: Multivit/Ca/Min/Fe/FA 1 TAB TABLET PO SCH (07:52)
[2019-07-14] MEDS: Piperacillin/Tazobactam 3.375 GM in 0.9 % Sodium Chloride Mini Bag 100 ML IVPB SCH ×3 (07:53→23:27)
[2019-07-14] MEDS: Letrozole 2.5 MG TABLET PO SCH (09:33)
[2019-07-14] MEDS: predniSONE 20 MG TABLET PO SCH (10:11)
[2019-07-14] MEDS: Budesonide/Formoterol 80/4.5 1 PUFF INH IH SCH ×2 (10:47→22:15)
[2019-07-14] MEDS: traZODone 50 MG TABLET PO SCH (21:28)
[2019-07-14] MEDS: rOPINIRole 1 MG TABLET PO SCH (21:28)
[2019-07-14] MEDS: Gabapentin 100 MG CAPSULE PO SCH (21:28)
[2019-07-14 23:22] LABS: Hematocrit 32.6 % (35.3-44.9); Hemoglobin 10.8 g/dL (11.5-15.4)
[2019-07-15 00:43] LABS: Hematocrit 34.6 % (35.3-44.9); Mean Corpuscular HGB Conc 31.8 g/dL (31.6-35.5); Mean Corpuscular Hemoglobin 31.7 pg (28.0-33.3); Mean Corpuscular Volume 99.7 fL (83.0-100.0); Mean Platelet Volume 8.8 fL (9.4-12.4); Platelet Count 474 K/mcL (140-400); Red Blood Count 3.47 M/mcL (3.82-4.97); Red Cell Distribution Width 14.4 % (11.5-14.5); White Blood Count 25.8 K/mcL (4.3-11.1)
[2019-07-15 00:56] LABS: BUN/Creatinine Ratio 29 (6-26); Blood Urea Nitrogen 26 mg/dL (8-23); Carbon Dioxide 25 mEq/L (23-29); Chloride 103 mEq/L (98-107); Glucose 130 mg/dL (70-105); Osmolality,Calculated 283 (280-300); Potassium 4.3 mEq/L (3.5-5.1); Sodium 133 mEq/L (136-145); eGFR For African Americans > 60 (> 60); eGFR For Non-African Americans > 60 (> 60)
[2019-07-15 01:21] LABS: Lymphocytes # 2.6 K/mcL (0.6-4.6); Neutrophils # 22.2 K/mcL (1.6-8.9); Reactive Lymphocytes Present (Not Present)
[2019-07-15] MEDS: Levalbuterol Neb 0.63 MG/3 ML IH SCH ×4 (04:21→22:42)
[2019-07-15] MEDS: Doxycycline 100 MG in 0.9 % Sodium Chloride Mini Bag 100 ML IVPB SCH ×2 (05:08→18:14)
[2019-07-15 08:29] LABS: INR 3.6; Prothrombin Time 40.6 Seconds (9.4-12.1)
[2019-07-15] MEDS: Piperacillin/Tazobactam 3.375 GM in 0.9 % Sodium Chloride Mini Bag 100 ML IVPB SCH ×3 (09:07→23:00)
[2019-07-15] MEDS: DilTIAZem CD (24hr) 180 MG CAP.ER.24H PO SCH (09:08)
[2019-07-15] MEDS: Aspirin Enteric Coated 81 MG Tablet PO SCH (09:08)
[2019-07-15] MEDS: Letrozole 2.5 MG TABLET PO SCH (09:09)
[2019-07-15] MEDS: *HR* Digoxin 0.125 MG TABLET PO SCH (09:09)
[2019-07-15] MEDS: predniSONE 20 MG TABLET PO SCH (09:10)
[2019-07-15] MEDS: Magnesium Oxide 400 MG TABLET PO SCH (09:10)
[2019-07-15] MEDS: Multivit/Ca/Min/Fe/FA 1 TAB TABLET PO SCH (09:11)
[2019-07-15] MEDS: *HR* OxyCODONE/APAP 10/325 TABLET PO PRN ×2 (09:26→21:12)
[2019-07-15] MEDS: Budesonide/Formoterol 80/4.5 1 PUFF INH IH SCH ×2 (10:38→22:42)
[2019-07-15] MEDS: Clobetasol Propionate 0.05% 15 GM Cream Tube TP SCH (10:55)
[2019-07-15 11:18] LABS: C.difficile Toxin A/B Gene PCR Not detected (Not detect); Campylobacter by PCR Not detected (Not detect); Cryptosporidium by PCR Not detected (Not detect); Cyclospora cayetanensis PCR Not detected (Not detect); E. coli O157 by PCR Not detected (Not detect); Enteroaggregative E.coli(EAEC) Not detected (Not detect); Enteropathogenic E.coli(EPEC) Not detected (Not detect); Enterotoxigenic E.coli (ETEC) Not detected (Not detect); Plesiomonas shigelloides PCR Not detected (Not detect); Salmonella PCR Not detected (Not detect); Shig/EnteroinvasiveE coli EIEC Not detected (Not detect); Shigalike tox-prod E coli STEC Not detected (Not detect); Vibrio PCR Not detected (Not detect); Vibrio cholerae PCR Not detected (Not detect); Yersinia enterocolitica PCR Not detected (Not detect)
[2019-07-15 11:19] LABS: Adenovirus F 40/41 PCR Not detected (Not detect); Astrovirus PCR Not detected (Not detect); Entamoeba histolytica PCR Not detected (Not detect); Giardia lamblia PCR Not detected (Not detect); Norovirus GI/GII PCR Not detected (Not detect); Rotavirus A PCR Not detected (Not detect); Sapovirus PCR Not detected (Not detect)
[2019-07-15] MEDS: traZODone 50 MG TABLET PO SCH (21:10)
[2019-07-15] MEDS: rOPINIRole 1 MG TABLET PO SCH (21:10)
[2019-07-15] MEDS: Gabapentin 100 MG CAPSULE PO SCH (21:11)
[2019-07-16 02:34] LABS: Basophils % 0.2 %; Eosinophils # 0.1 K/mcL (0.0-0.6); Eosinophils % 0.2 %; Hematocrit 24.4 % (35.3-44.9); Immature Granulocytes % 4.9 % (0-4); Lymphocytes # 1.5 K/mcL (0.6-4.6); Lymphocytes % 6.9 %; Mean Corpuscular HGB Conc 32.8 g/dL (31.6-35.5); Mean Corpuscular Volume 97.6 fL (83.0-100.0); Monocytes # 1.3 K/mcL (0.0-1.3); Monocytes % 5.7 %; Neutrophils # 18.3 K/mcL (1.6-8.9); Platelet Count 461 K/mcL (140-400); Red Cell Distribution Width 14.6 % (11.5-14.5); Segmented Neutrophils % 82.1 %; White Blood Count 22.2 K/mcL (4.3-11.1)
[2019-07-16 02:35] LABS: Prothrombin Time 34.4 Seconds (9.4-12.1)
[2019-07-16 02:56] LABS: BUN/Creatinine Ratio 24 (6-26); Blood Urea Nitrogen 18 mg/dL (8-23); Calcium 7.3 mg/dL (8.6-10.3); Carbon Dioxide 24 mEq/L (23-29); Chloride 107 mEq/L (98-107); Glucose 92 mg/dL (70-105); Osmolality,Calculated 282 (280-300); Potassium 4.4 mEq/L (3.5-5.1); Sodium 135 mEq/L (136-145); eGFR For African Americans > 60 (> 60); eGFR For Non-African Americans > 60 (> 60)
[2019-07-16] MEDS: Levalbuterol Neb 0.63 MG/3 ML IH SCH ×4 (03:48→22:15)
[2019-07-16] MEDS: Doxycycline 100 MG in 0.9 % Sodium Chloride Mini Bag 100 ML IVPB SCH ×2 (06:07→18:12)
[2019-07-16] MEDS: *HR* OxyCODONE/APAP 10/325 TABLET PO PRN ×3 (06:08→21:55)
[2019-07-16] MEDS: 0.9 % Sodium Chloride 1,000 ML IVC SCH (07:35)
[2019-07-16 08:44] LABS: Hematocrit 24.3 % (35.3-44.9); Hemoglobin 8.2 g/dL (11.5-15.4)
[2019-07-16] MEDS ORDERED: Aminoglycoside Consult 1 EACH MC ONE (09:21)
[2019-07-16] MEDS ORDERED: 0.9 % Sodium Chloride 250 ML IVC PRN (09:31)
[2019-07-16] MEDS: *HR* Digoxin 0.125 MG TABLET PO SCH (09:43)
[2019-07-16] MEDS: Multivit/Ca/Min/Fe/FA 1 TAB TABLET PO SCH (09:43)
[2019-07-16] MEDS: Piperacillin/Tazobactam 3.375 GM in 0.9 % Sodium Chloride Mini Bag 100 ML IVPB SCH ×3 (09:44→16:04)
[2019-07-16] MEDS: predniSONE 20 MG TABLET PO SCH (09:44)
[2019-07-16] MEDS: Magnesium Oxide 400 MG TABLET PO SCH (09:44)
[2019-07-16] MEDS: Aspirin Enteric Coated 81 MG Tablet PO SCH (09:44)
[2019-07-16] MEDS: Budesonide/Formoterol 80/4.5 1 PUFF INH IH SCH ×2 (11:03→22:14)
[2019-07-16] MEDS ORDERED: 0.9 % Sodium Chloride 250 ML ONE (11:27)
[2019-07-16] MEDS: Ondansetron 4 MG/2 ML VIAL IVP PRN (13:10)
[2019-07-16] MEDS: DilTIAZem CD (24hr) 180 MG CAP.ER.24H PO SCH ×2 (13:13→14:05)
[2019-07-16] MEDS: Letrozole 2.5 MG TABLET PO SCH (13:27)
[2019-07-16] MEDS ORDERED: Furosemide 20 MG/2 ML VIAL IVP SCH (13:45)
[2019-07-16] MEDS ORDERED: Promethazine 12.5 MG in 0.9 % Sodium Chloride 50 ML IVPB PRN (16:21)
[2019-07-16] MEDS: *HR* Promethazine 25 MG/ML VIAL IVP PRN (17:53)
[2019-07-16] MEDS ORDERED: Pantoprazole 40 MG VIAL IVP ONE (17:59)
[2019-07-16] MEDS: traZODone 50 MG TABLET PO SCH (20:39)
[2019-07-16] MEDS: rOPINIRole 1 MG TABLET PO SCH (20:39)
[2019-07-16] MEDS: Gabapentin 100 MG CAPSULE PO SCH (20:39)
[2019-07-16] MEDS: Pantoprazole 40 MG in 0.9 % Sodium Chloride Mini Bag 100 ML IVC SCH (20:55)
[2019-07-16] MEDS: Furosemide 20 MG/2 ML VIAL IVP SCH (20:55)
[2019-07-16 22:24] LABS: Hematocrit 36.6 % (35.3-44.9)
[2019-07-16 22:40] LABS: INR 1.1; Prothrombin Time 12.7 Seconds (9.4-12.1)
[2019-07-17] MEDS: Piperacillin/Tazobactam 3.375 GM in 0.9 % Sodium Chloride Mini Bag 100 ML IVPB SCH ×3 (00:04→15:53)
[2019-07-17 01:06] LABS: Basophils # 0.1 K/mcL (0.0-0.2); Basophils % 0.2 %; Hematocrit 29.8 % (35.3-44.9); Hemoglobin 10.2 g/dL (11.5-15.4); INR 1.2; Immature Granulocytes % 3.6 % (0-4); Lymphocytes # 1.3 K/mcL (0.6-4.6); Lymphocytes % 5.5 %; Mean Corpuscular HGB Conc 34.2 g/dL (31.6-35.5); Mean Corpuscular Hemoglobin 31.1 pg (28.0-33.3); Mean Corpuscular Volume 90.9 fL (83.0-100.0); Mean Platelet Volume 8.7 fL (9.4-12.4); Monocytes # 1.1 K/mcL (0.0-1.3); Neutrophils # 19.5 K/mcL (1.6-8.9); Nucleated Red Blood Cells 0.1 /100 WBC (0); Platelet Count 372 K/mcL (140-400); Prothrombin Time 13.3 Seconds (9.4-12.1); Red Blood Count 3.28 M/mcL (3.82-4.97); Red Cell Distribution Width 15.9 % (11.5-14.5); Segmented Neutrophils % 85.7 %; White Blood Count 22.8 K/mcL (4.3-11.1)
[2019-07-17 01:22] LABS: BUN/Creatinine Ratio 22 (6-26); Blood Urea Nitrogen 17 mg/dL (8-23); Calcium 7.8 mg/dL (8.6-10.3); Carbon Dioxide 29 mEq/L (23-29); Chloride 102 mEq/L (98-107); Glucose 118 mg/dL (70-105); Osmolality,Calculated 283 (280-300); Potassium 3.8 mEq/L (3.5-5.1); Sodium 135 mEq/L (136-145); eGFR For African Americans > 60 (> 60); eGFR For Non-African Americans > 60 (> 60)
[2019-07-17] MEDS: 0.9 % Sodium Chloride 1,000 ML IVC SCH (02:40)
[2019-07-17] MEDS: Pantoprazole 40 MG in 0.9 % Sodium Chloride Mini Bag 100 ML IVC SCH ×3 (02:41→10:08)
[2019-07-17] MEDS: Levalbuterol Neb 0.63 MG/3 ML IH SCH ×4 (03:44→22:03)
[2019-07-17] MEDS: Doxycycline 100 MG in 0.9 % Sodium Chloride Mini Bag 100 ML IVPB SCH ×2 (05:22→17:22)
[2019-07-17] MEDS: *HR* OxyCODONE/APAP 10/325 TABLET PO PRN ×2 (05:23→19:21)
[2019-07-17] MEDS ORDERED: Lidocaine -MPF 2% 2 ML VIAL ONE (09:02)
[2019-07-17] MEDS ORDERED: *HR* Propofol 200 MG/20 ML VIAL IVP ONE ×2 (09:02→09:05)
[2019-07-17] MEDS ORDERED: *HR* Etomidate 40 MG/20 ML VIAL IVP ONE (09:02)
[2019-07-17] MEDS ORDERED: *HR* PHENYLEPHRINE 1,000 MCG/10 ML SYRINGE IVP ONE (09:02)
[2019-07-17] MEDS: Multivit/Ca/Min/Fe/FA 1 TAB TABLET PO SCH (10:05)
[2019-07-17] MEDS: Magnesium Oxide 400 MG TABLET PO SCH (10:05)
[2019-07-17] MEDS: predniSONE 20 MG TABLET PO SCH (10:06)
[2019-07-17] MEDS: *HR* Digoxin 0.125 MG TABLET PO SCH (10:06)
[2019-07-17] MEDS: Furosemide 20 MG/2 ML VIAL IVP SCH ×3 (10:13→21:39)
[2019-07-17] MEDS: Budesonide/Formoterol 80/4.5 1 PUFF INH IH SCH ×2 (10:24→22:03)
[2019-07-17] MEDS: DilTIAZem CD (24hr) 180 MG CAP.ER.24H PO SCH (11:06)
[2019-07-17] MEDS: Letrozole 2.5 MG TABLET PO SCH (11:09)
[2019-07-17 13:13] LABS: Hematocrit 30.7 % (35.3-44.9); Hemoglobin 10.8 g/dL (11.5-15.4)
[2019-07-17] MEDS: Aspirin Enteric Coated 81 MG Tablet PO SCH (13:13)
[2019-07-17] MEDS: Ondansetron 4 MG/2 ML VIAL IVP PRN (16:02)
[2019-07-17] MEDS: *HR* Promethazine 25 MG/ML VIAL IVP PRN (18:15)
[2019-07-17] MEDS: Gabapentin 100 MG CAPSULE PO SCH (21:38)
[2019-07-17] MEDS: rOPINIRole 1 MG TABLET PO SCH (21:38)
[2019-07-17] MEDS: traZODone 50 MG TABLET PO SCH (22:02)
[2019-07-18] MEDS: Piperacillin/Tazobactam 3.375 GM in 0.9 % Sodium Chloride Mini Bag 100 ML IVPB SCH ×2 (00:08→08:41)
[2019-07-18] MEDS: Levalbuterol Neb 0.63 MG/3 ML IH SCH ×4 (03:22→21:44)
[2019-07-18 04:33] LABS: Prothrombin Time 11.6 Seconds (9.4-12.1)
[2019-07-18 05:20] LABS: BUN/Creatinine Ratio 18 (6-26); Blood Urea Nitrogen 14 mg/dL (8-23); Calcium 7.1 mg/dL (8.6-10.3); Carbon Dioxide 25 mEq/L (23-29); Chloride 104 mEq/L (98-107); Glucose 97 mg/dL (70-105); Osmolality,Calculated 280 (280-300); Potassium 3.8 mEq/L (3.5-5.1); Sodium 135 mEq/L (136-145); eGFR For African Americans > 60 (> 60); eGFR For Non-African Americans > 60 (> 60)
[2019-07-18] MEDS ORDERED: Ibuprofen 400 MG TABLET PO ONE (05:24)
[2019-07-18] MEDS: *HR* OxyCODONE/APAP 10/325 TABLET PO PRN ×2 (05:24→20:19)
[2019-07-18] MEDS: Doxycycline 100 MG in 0.9 % Sodium Chloride Mini Bag 100 ML IVPB SCH (05:25)
[2019-07-18 05:31] LABS: Basophils # 0.1 K/mcL (0.0-0.2); Basophils % 0.3 %; Eosinophils # 0.2 K/mcL (0.0-0.6); Eosinophils % 0.6 %; Hematocrit 30.9 % (35.3-44.9); Hemoglobin 10.5 g/dL (11.5-15.4); Immature Granulocytes % 2.6 % (0-4); Lymphocytes % 10.5 %; Mean Corpuscular Hemoglobin 31.5 pg (28.0-33.3); Mean Corpuscular Volume 92.8 fL (83.0-100.0); Mean Platelet Volume 9.6 fL (9.4-12.4); Monocytes # 1.4 K/mcL (0.0-1.3); Monocytes % 5.4 %; Neutrophils # 21.1 K/mcL (1.6-8.9); Nucleated Red Blood Cells 0.1 /100 WBC (0); Platelet Count 283 K/mcL (140-400); Red Blood Count 3.33 M/mcL (3.82-4.97); Red Cell Distribution Width 16.1 % (11.5-14.5); Segmented Neutrophils % 80.6 %; White Blood Count 26.2 K/mcL (4.3-11.1)
[2019-07-18 05:54] LABS: Lymphocytes # 2.8 K/mcL (0.6-4.6)
[2019-07-18 05:55] LABS: Platelet Estimate Normal (Normal)
[2019-07-18] MEDS: 0.9 % Sodium Chloride 1,000 ML IVC SCH (08:40)
[2019-07-18] MEDS: Aspirin Enteric Coated 81 MG Tablet PO SCH (08:42)
[2019-07-18] MEDS: *HR* Digoxin 0.125 MG TABLET PO SCH (08:43)
[2019-07-18] MEDS: Letrozole 2.5 MG TABLET PO SCH (08:43)
[2019-07-18] MEDS: predniSONE 20 MG TABLET PO SCH (08:43)
[2019-07-18] MEDS: Multivit/Ca/Min/Fe/FA 1 TAB TABLET PO SCH (08:43)
[2019-07-18] MEDS: Magnesium Oxide 400 MG TABLET PO SCH (08:43)
[2019-07-18] MEDS: Furosemide 20 MG/2 ML VIAL IVP SCH ×2 (08:52→20:19)
[2019-07-18] MEDS: Clobetasol Propionate 0.05% 15 GM Cream Tube TP SCH (08:56)
[2019-07-18 08:58] LABS: Basophils % 0.2 %; Eosinophils # 0.2 K/mcL (0.0-0.6); Eosinophils % 0.9 %; Hematocrit 31.4 % (35.3-44.9); Hemoglobin 10.5 g/dL (11.5-15.4); Lymphocytes # 2.5 K/mcL (0.6-4.6); Lymphocytes % 11.4 %; Mean Corpuscular HGB Conc 33.4 g/dL (31.6-35.5); Mean Corpuscular Hemoglobin 30.8 pg (28.0-33.3); Mean Corpuscular Volume 92.1 fL (83.0-100.0); Mean Platelet Volume 8.7 fL (9.4-12.4); Monocytes # 1.3 K/mcL (0.0-1.3); Neutrophils # 17.7 K/mcL (1.6-8.9); Platelet Count 388 K/mcL (140-400); Red Blood Count 3.41 M/mcL (3.82-4.97); Segmented Neutrophils % 79.5 %; White Blood Count 22.3 K/mcL (4.3-11.1)
[2019-07-18] MEDS: Budesonide/Formoterol 80/4.5 1 PUFF INH IH SCH ×2 (09:55→21:44)
[2019-07-18] MEDS: Lactobacillus 1 EACH CAP.SPRINK PO SCH (11:10)
[2019-07-18] MEDS ORDERED: DilTIAZem CD (24hr) 120 MG CAP.ER.24H PO SCH (11:15)
[2019-07-18] MEDS: Gabapentin 100 MG CAPSULE PO SCH (20:18)
[2019-07-18] MEDS: traZODone 50 MG TABLET PO SCH (20:18)
[2019-07-18] MEDS: rOPINIRole 1 MG TABLET PO SCH (20:18)
[2019-07-18] MEDS: Doxycycline 100 MG CAPSULE PO SCH (21:44)
[2019-07-19] MEDS: Levalbuterol Neb 0.63 MG/3 ML IH SCH ×4 (03:45→21:56)
[2019-07-19] MEDS: *HR* OxyCODONE/APAP 10/325 TABLET PO PRN ×3 (03:46→20:20)
[2019-07-19 04:46] LABS: Basophils % 0.1 %; Eosinophils # 0.2 K/mcL (0.0-0.6); Eosinophils % 0.8 %; Hematocrit 30.1 % (35.3-44.9); Hemoglobin 10.3 g/dL (11.5-15.4); Immature Granulocytes % 2.1 % (0-4); Lymphocytes # 2.1 K/mcL (0.6-4.6); Lymphocytes % 10.4 %; Mean Corpuscular HGB Conc 34.2 g/dL (31.6-35.5); Mean Corpuscular Hemoglobin 31.2 pg (28.0-33.3); Mean Corpuscular Volume 91.2 fL (83.0-100.0); Mean Platelet Volume 9.3 fL (9.4-12.4); Monocytes # 1.4 K/mcL (0.0-1.3); Monocytes % 6.8 %; Neutrophils # 15.9 K/mcL (1.6-8.9); Nucleated Red Blood Cells 0.1 /100 WBC (0); Platelet Count 386 K/mcL (140-400); Red Cell Distribution Width 15.7 % (11.5-14.5); Segmented Neutrophils % 79.8 %; White Blood Count 19.9 K/mcL (4.3-11.1)
[2019-07-19 05:00] LABS: % Iron Saturation 10 % (15-50); BUN/Creatinine Ratio 21 (6-26); Blood Urea Nitrogen 14 mg/dL (8-23); Calcium 7.8 mg/dL (8.6-10.3); Carbon Dioxide 29 mEq/L (23-29); Chloride 98 mEq/L (98-107); Glucose 103 mg/dL (70-105); Iron 24 mcg/dL (50-170); Magnesium 1.8 mg/dL (1.6-2.6); Osmolality,Calculated 277 (280-300); Phosphorous 2.9 mg/dL (2.7-4.5); Sodium 133 mEq/L (136-145); Transferrin 172 mg/dL (203-362); eGFR For African Americans > 60 (> 60); eGFR For Non-African Americans > 60 (> 60)
[2019-07-19] MEDS: Letrozole 2.5 MG TABLET PO SCH (08:20)
[2019-07-19] MEDS: *HR* Digoxin 0.125 MG TABLET PO SCH (08:20)
[2019-07-19] MEDS: Aspirin Enteric Coated 81 MG Tablet PO SCH (08:20)
[2019-07-19] MEDS: Lactobacillus 1 EACH CAP.SPRINK PO SCH (08:20)
[2019-07-19] MEDS: Doxycycline 100 MG CAPSULE PO SCH ×2 (08:20→20:20)
[2019-07-19] MEDS: Magnesium Oxide 400 MG TABLET PO SCH (08:21)
[2019-07-19] MEDS: Furosemide 20 MG/2 ML VIAL IVP SCH (08:21)
[2019-07-19] MEDS: Multivit/Ca/Min/Fe/FA 1 TAB TABLET PO SCH (08:21)
[2019-07-19] MEDS: predniSONE 20 MG TABLET PO SCH (08:21)
[2019-07-19] MEDS ORDERED: DilTIAZem CD (24hr) 180 MG CAP.ER.24H PO SCH (09:00)
[2019-07-19] MEDS: Budesonide/Formoterol 80/4.5 1 PUFF INH IH SCH ×2 (10:55→21:56)
[2019-07-19] MEDS ORDERED: *HR* Heparin 5,000 UNIT/ML VIAL IVP PRN ×2 (11:20)
[2019-07-19] MEDS ORDERED: *HR* Heparin 5,000 UNIT/ML VIAL IVP ONE (11:20)
[2019-07-19] MEDS ORDERED: Heparin 25,000 UNIT/250 ML D5W 25,000 UNIT/250 ML IV.SOLN IVC SCH (11:30)
[2019-07-19] MEDS: DilTIAZem 50 MG in 0.9 % Sodium Chloride 40 ML IVC SCH ×4 (12:23→23:37)
[2019-07-19] MEDS: Furosemide 40 MG/4 ML VIAL IVP SCH (16:48)
[2019-07-19] MEDS ORDERED: Isovue-370 500 ML BOTTLE IVP ONE (16:59)
[2019-07-19] MEDS: traZODone 50 MG TABLET PO SCH (20:19)
[2019-07-19] MEDS: rOPINIRole 1 MG TABLET PO SCH (20:20)
[2019-07-19] MEDS: Gabapentin 100 MG CAPSULE PO SCH (20:21)
[2019-07-20] MEDS: DilTIAZem 50 MG in 0.9 % Sodium Chloride 40 ML IVC SCH ×6 (03:11→23:01)
[2019-07-20] MEDS: *HR* OxyCODONE/APAP 10/325 TABLET PO PRN ×3 (03:15→19:55)
[2019-07-20] MEDS: Levalbuterol Neb 0.63 MG/3 ML IH SCH ×4 (04:05→21:45)
[2019-07-20 04:50] LABS: Basophils % 0.2 %; Eosinophils # 0.2 K/mcL (0.0-0.6); Eosinophils % 0.8 %; Hematocrit 30.1 % (35.3-44.9); Hemoglobin 9.7 g/dL (11.5-15.4); Immature Granulocytes % 1.4 % (0-4); Lymphocytes # 2.3 K/mcL (0.6-4.6); Lymphocytes % 11.7 %; Mean Corpuscular HGB Conc 32.2 g/dL (31.6-35.5); Mean Corpuscular Hemoglobin 31.1 pg (28.0-33.3); Mean Corpuscular Volume 96.5 fL (83.0-100.0); Mean Platelet Volume 8.6 fL (9.4-12.4); Monocytes # 1.6 K/mcL (0.0-1.3); Monocytes % 7.9 %; Neutrophils # 15.6 K/mcL (1.6-8.9); Platelet Count 404 K/mcL (140-400); Red Blood Count 3.12 M/mcL (3.82-4.97)
[2019-07-20 05:17] LABS: BUN/Creatinine Ratio 19 (6-26); Blood Urea Nitrogen 14 mg/dL (8-23); Calcium 7.7 mg/dL (8.6-10.3); Carbon Dioxide 32 mEq/L (23-29); Chloride 98 mEq/L (98-107); Glucose 89 mg/dL (70-105); Magnesium 1.8 mg/dL (1.6-2.6); Osmolality,Calculated 282 (280-300); Phosphorous 2.8 mg/dL (2.7-4.5); Potassium 3.8 mEq/L (3.5-5.1); Sodium 136 mEq/L (136-145); eGFR For African Americans > 60 (> 60); eGFR For Non-African Americans > 60 (> 60)
[2019-07-20] MEDS: Multivit/Ca/Min/Fe/FA 1 TAB TABLET PO SCH (08:02)
[2019-07-20] MEDS: Doxycycline 100 MG CAPSULE PO SCH ×2 (08:02→19:54)
[2019-07-20] MEDS: Lactobacillus 1 EACH CAP.SPRINK PO SCH (08:02)
[2019-07-20] MEDS: Letrozole 2.5 MG TABLET PO SCH (08:04)
[2019-07-20] MEDS: Magnesium Oxide 400 MG TABLET PO SCH (08:04)
[2019-07-20] MEDS: Aspirin Enteric Coated 81 MG Tablet PO SCH (08:04)
[2019-07-20] MEDS: *HR* Digoxin 0.125 MG TABLET PO SCH (08:04)
[2019-07-20] MEDS: Furosemide 40 MG/4 ML VIAL IVP SCH ×2 (08:06→16:59)
[2019-07-20] MEDS: Clobetasol Propionate 0.05% 15 GM Cream Tube TP SCH (08:09)
[2019-07-20] MEDS ORDERED: predniSONE 20 MG TABLET PO SCH (09:00)
[2019-07-20] MEDS ORDERED: DilTIAZem CD (24hr) 240 MG CAP.ER.24H PO SCH (09:00)
[2019-07-20] MEDS: Budesonide/Formoterol 80/4.5 1 PUFF INH IH SCH ×2 (10:39→21:45)
[2019-07-20 11:27] LABS: INR 0.9; Prothrombin Time 10.6 Seconds (9.4-12.1)
[2019-07-20] MEDS ORDERED: Furosemide 40 MG/4 ML VIAL IVP ONE (13:05)
[2019-07-20] MEDS ORDERED: *HR* Warfarin 3 MG TABLET PO ONE (18:00)
[2019-07-20] MEDS: rOPINIRole 1 MG TABLET PO SCH (19:54)
[2019-07-20] MEDS: traZODone 50 MG TABLET PO SCH (19:54)
[2019-07-20] MEDS: Gabapentin 100 MG CAPSULE PO SCH (19:55)
[2019-07-20] MEDS: *HR* Metoprolol 5 MG/5 ML VIAL IVP PRN ×2 (19:55→23:04)
[2019-07-20] MEDS: *HR* Promethazine 25 MG/ML VIAL IVP PRN (19:56)
[2019-07-21 01:51] LABS: Prothrombin Time 11.2 Seconds (9.4-12.1)
[2019-07-21] MEDS: Levalbuterol Neb 0.63 MG/3 ML IH SCH ×4 (04:05→22:39)
[2019-07-21] MEDS ORDERED: DilTIAZem CD (24hr) 300 MG CAP.ER.24H PO SCH (09:00)
[2019-07-21] MEDS ORDERED: predniSONE 20 MG TABLET PO SCH (09:00)
[2019-07-21] MEDS: Furosemide 40 MG/4 ML VIAL IVP SCH ×2 (09:16→21:38)
[2019-07-21] MEDS: Lactobacillus 1 EACH CAP.SPRINK PO SCH (09:16)
[2019-07-21] MEDS: Doxycycline 100 MG CAPSULE PO SCH ×2 (09:16→21:38)
[2019-07-21] MEDS: Aspirin Enteric Coated 81 MG Tablet PO SCH (09:17)
[2019-07-21] MEDS: DilTIAZem CD (24hr) 180 MG CAP.ER.24H PO SCH (09:17)
[2019-07-21] MEDS: *HR* Digoxin 0.125 MG TABLET PO SCH (09:17)
[2019-07-21] MEDS: Magnesium Oxide 400 MG TABLET PO SCH (09:17)
[2019-07-21] MEDS: Multivit/Ca/Min/Fe/FA 1 TAB TABLET PO SCH (09:17)
[2019-07-21 09:28] LABS: Basophils % 0.2 %; Eosinophils # 0.3 K/mcL (0.0-0.6); Eosinophils % 1.3 %; Hematocrit 33.5 % (35.3-44.9); Hemoglobin 10.9 g/dL (11.5-15.4); Immature Granulocytes % 1.3 % (0-4); Lymphocytes # 3.4 K/mcL (0.6-4.6); Lymphocytes % 14.6 %; Mean Corpuscular HGB Conc 32.5 g/dL (31.6-35.5); Mean Corpuscular Volume 95.2 fL (83.0-100.0); Mean Platelet Volume 9.4 fL (9.4-12.4); Monocytes # 1.8 K/mcL (0.0-1.3); Monocytes % 7.8 %; Neutrophils # 17.4 K/mcL (1.6-8.9); Platelet Count 430 K/mcL (140-400); Red Blood Count 3.52 M/mcL (3.82-4.97); Red Cell Distribution Width 16.3 % (11.5-14.5); Segmented Neutrophils % 74.8 %; White Blood Count 23.2 K/mcL (4.3-11.1)
[2019-07-21] MEDS: Letrozole 2.5 MG TABLET PO SCH (09:35)
[2019-07-21] MEDS: *HR* OxyCODONE/APAP 10/325 TABLET PO PRN ×2 (09:35→17:39)
[2019-07-21 09:47] LABS: BUN/Creatinine Ratio 14 (6-26); Blood Urea Nitrogen 13 mg/dL (8-23); Calcium 8.3 mg/dL (8.6-10.3); Carbon Dioxide 29 mEq/L (23-29); Chloride 99 mEq/L (98-107); Glucose 94 mg/dL (70-105); Osmolality,Calculated 276 (280-300); Sodium 133 mEq/L (136-145); eGFR For African Americans > 60 (> 60); eGFR For Non-African Americans 60 (> 60)
[2019-07-21 09:56] LABS: Basophils # 0.1 K/mcL (0.0-0.2)
[2019-07-21] MEDS: Budesonide/Formoterol 80/4.5 1 PUFF INH IH SCH ×2 (10:23→22:40)
[2019-07-21] MEDS ORDERED: *HR* Warfarin 3 MG TABLET PO ONE (18:00)
[2019-07-21] MEDS: rOPINIRole 1 MG TABLET PO SCH (21:39)
[2019-07-21] MEDS: Gabapentin 100 MG CAPSULE PO SCH (21:39)
[2019-07-21] MEDS: traZODone 50 MG TABLET PO SCH (21:40)
[2019-07-22] MEDS: *HR* OxyCODONE/APAP 10/325 TABLET PO PRN (02:10)
[2019-07-22 02:22] LABS: Basophils % 0.1 %; Eosinophils # 0.2 K/mcL (0.0-0.6); Hematocrit 31.4 % (35.3-44.9); Immature Granulocytes % 1.1 % (0-4); Lymphocytes # 0.7 K/mcL (0.6-4.6); Lymphocytes % 4.9 %; Mean Corpuscular HGB Conc 31.8 g/dL (31.6-35.5); Mean Corpuscular Hemoglobin 30.7 pg (28.0-33.3); Mean Corpuscular Volume 96.3 fL (83.0-100.0); Mean Platelet Volume 8.7 fL (9.4-12.4); Monocytes % 6.5 %; Neutrophils # 13.2 K/mcL (1.6-8.9); Platelet Count 458 K/mcL (140-400); Red Blood Count 3.26 M/mcL (3.82-4.97); Red Cell Distribution Width 15.9 % (11.5-14.5); Segmented Neutrophils % 86.4 %; White Blood Count 15.2 K/mcL (4.3-11.1)
[2019-07-22 02:28] LABS: INR 1.1; Prothrombin Time 12.3 Seconds (9.4-12.1)
[2019-07-22 02:45] LABS: BUN/Creatinine Ratio 19 (6-26); Blood Urea Nitrogen 19 mg/dL (8-23); Calcium 8.2 mg/dL (8.6-10.3); Carbon Dioxide 32 mEq/L (23-29); Chloride 94 mEq/L (98-107); Glucose 147 mg/dL (70-105); Magnesium 1.8 mg/dL (1.6-2.6); Osmolality,Calculated 283 (280-300); Phosphorous 3.5 mg/dL (2.7-4.5); Potassium 3.7 mEq/L (3.5-5.1); Sodium 134 mEq/L (136-145); eGFR For African Americans > 60 (> 60); eGFR For Non-African Americans 54 (> 60)
[2019-07-22] MEDS: Levalbuterol Neb 0.63 MG/3 ML IH SCH ×2 (04:18→10:10)
[2019-07-22] MEDS: Letrozole 2.5 MG TABLET PO SCH (08:25)
[2019-07-22] MEDS: Magnesium Oxide 400 MG TABLET PO SCH (08:26)
[2019-07-22] MEDS: Aspirin Enteric Coated 81 MG Tablet PO SCH (08:26)
[2019-07-22] MEDS: DilTIAZem CD (24hr) 180 MG CAP.ER.24H PO SCH (08:26)
[2019-07-22] MEDS: Doxycycline 100 MG CAPSULE PO SCH (08:26)
[2019-07-22] MEDS: Lactobacillus 1 EACH CAP.SPRINK PO SCH (08:26)
[2019-07-22] MEDS: Multivit/Ca/Min/Fe/FA 1 TAB TABLET PO SCH (08:27)
[2019-07-22] MEDS: *HR* Digoxin 0.125 MG TABLET PO SCH (08:27)
[2019-07-22] MEDS: Furosemide 40 MG/4 ML VIAL IVP SCH (08:32)
[2019-07-22] MEDS: Clobetasol Propionate 0.05% 15 GM Cream Tube TP SCH (08:41)
[2019-07-22] MEDS ORDERED: predniSONE 20 MG TABLET PO SCH (09:00)
[2019-07-22] MEDS: Budesonide/Formoterol 80/4.5 1 PUFF INH IH SCH (10:10)
[2019-07-22 10:47] VITALS: BP 105/71
[2019-07-22] MEDS ORDERED: *HR* Warfarin 3 MG TABLET PO ONE (18:00)
== END 2019-07-22 11:56 | disposition home or self-care (01) | DRG 871 ==
LOC: EMEROOARM 09:50 → SUATTDRO 11:43 → 2NNU 13:29
PROVIDERS: ADMIT Internal Medicine; ATTEND Internal Medicine
PROC: ENDOCBX (2019-07-17 08:00)